=== PATIENT | male | born 1965 | race Caucasian/White ===

== ENCOUNTER 2016-05-18 11:16 | Emergency (ER) | payer SELFPAY ==
--- NOTE | 2016-05-18 11:35 | ER Document Report ---
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 IN LAST 30 DAYS: No - Related Data Allergies/Adverse Reactions: Penicillins Allergy (Intermediate, Verified 01/05/16 08:20) Hives ketorolac tromethamine [From Toradol] Adverse Reaction (Intermediate, Verified 01/05/16 08:20) headache Past Medical History - Past Medical History Cardiac Medical History: Reports: Hx Hypertension Pulmonary Medical History: Reports: Hx COPD Musculoskeltal Medical History: Reports Hx Arthritis, Reports Hx Musculoskeletal Deformity, Reports Hx Musculoskeletal Trauma Traumatic Medical History: Reports: Hx Fractures, Hx Traumatic Brain Injury Past Surgical History: Reports: Hx Abdominal Surgery - pyloric stenosis, Hx Neurologic Surgery - brain injury surgery, Hx Orthopedic Surgery - rt wrist tendon repair - Immunizations Immunizations up to date: Yes Hx Diphtheria, Pertussis, Tetanus Vaccination: Yes
[2016-05-18] MEDS ORDERED: IPRATROPIUM BROMIDE 0.02% NEB 0.5 MG/2.5 ML AMPUL NEB PRN (11:36)
[2016-05-18] MEDS ORDERED: NORMAL SALINE 1000 ML 1,000 ML IV PRN (12:05)
[2016-05-18] MEDS ORDERED: METHYLPREDNISOLONE INJ 125 MG/2 ML SDV IV ONE (12:05)
[2016-05-18] MEDS ORDERED: MORPHINE SULFATE 10 MG/ML INJ IV PRN ×2 (12:06→17:09)
[2016-05-18] MEDS ORDERED: MORPHINE SULFATE 10 MG/ML INJ IV ONE (12:06)
--- NOTE | 2016-05-18 12:09 | ER Document Report ---
ED Respiratory Problem - General Chief Complaint: Breathing Difficulty Stated Complaint: DIFFICULTY BREATHING Time seen by provider: 12:08 Mode of Arrival: Ambulatory Information source: Patient Notes: This is a 51-year-old man with a history of smoking who [place] and he started developing some significant shortness of breath, coughing fits, difficulty breathing. Allergies: Toradol, penicillin Medicines: None cigarettes: One pack per day TRAVEL OUTSIDE OF THE [place] IN LAST 30 DAYS: No - HPI Patient complains to provider of: Asthma Onset: Just prior to arrival Duration: Worse/persistent Initiating Event: Exposure to mold Quality of pain: Dull Severity: Moderate Pain Level: 4 Short of Breath: Moderate Chest pain/discomfort: Center, Constant Cough: Nonproductive Sputum amount: None Sputum consistency: denies: Frothy, Mucoid, Mucoid Plug, Tenacious, Thick, Thin At home treatment: denies: Bronchodilators, CPAP, Diuretics, Inhaled steroids, Oral steroids, Oxygen, Singulair, Theophylline EMS treatments: No: Bronchodilators, CPAP, Diuretics, Epinephrine, Nitrates, Oxygen, Solumedrol Associated symptoms: denies: None, Ankle/leg swelling, Allergy/hay fever, Anxiety, Bloody cough, Chest pain/discomfort, Chills, Congestion, Cough, Dental decay, Difficulty breathing, Earache, Extertional dyspnea, Facial pain, Fever, Headache, Heart racing, Hoarseness, Hurts to breathe, Hyperventilation, Jaw pain , Leg/calf/joint pain, Muscle spasms, Orthopnea, PND, Runny nose, Sinus pain/ pressure, Short of breath, Sore Throat, Sweaty, Tingling face, Tingling hands, Unable to swallow, Toothache, Wheezing, Other Similar symptoms previously: Yes Recently seen / treated by doctor: No - Related Data Allergies/Adverse Reactions: Penicillins Allergy (Intermediate, Verified 05/18/16 11:34) Hives ketorolac tromethamine [From Toradol] Adverse Reaction (Intermediate, Verified 05/18/16 11:34) headache Past Medical History - General Information source: Patient - Social History Smoking Status: Current Every Day Smoker Cigarette use (# per day): Yes - 1-1/2 packs per day Chew tobacco use (# tins/day): No Smoking Education Provided: Yes - 3 minutes Frequency of alcohol use: Social Drug Abuse: None Lives with: Family Family History: Arthritis, CAD, CVA, DM, Hyperlipidemia, Hypertension, Malignancy Patient has suicidal ideation: No Patient has homicidal ideation: No - Past Medical History Cardiac Medical History: Reports: Hx Hypertension Pulmonary Medical History: Reports: Hx COPD Renal/ Medical History: Denies: Hx Peritoneal Dialysis Musculoskeltal Medical History: Reports Hx Arthritis, Reports Hx Musculoskeletal Deformity, Reports Hx Musculoskeletal Trauma Traumatic Medical History: Reports: Hx Fractures, Hx Traumatic Brain Injury Past Surgical History: Reports: Hx Abdominal Surgery - pyloric stenosis, Hx Neurologic Surgery - brain injury surgery, Hx Orthopedic Surgery - rt wrist tendon repair - Immunizations Immunizations up to date: Yes Hx Diphtheria, Pertussis, Tetanus Vaccination: Yes Review of Systems - Review of Systems Constitutional: See HPI EENT: No symptoms reported Cardiovascular: No symptoms reported Respiratory: See HPI Gastrointestinal: No symptoms reported Genitourinary: No symptoms reported Male Genitourinary: No symptoms reported Musculoskeletal: See HPI Skin: No symptoms reported Hematologic/Lymphatic: No symptoms reported Neurological/Psychological: No symptoms reported Physical Exam - Vital signs Vitals: Temp Pulse Resp BP Pulse Ox 98.2 F 107 H 20 139/95 H 98 05/18/16 11:34 05/18/16 11:34 05/18/16 11:34 05/18/16 11:34 05/18/16 11:34 Notes: Physical exam: GENERAL: 51-year-old man, alert and oriented 3, moderate respiratory distress HEAD: Atraumatic, normocephalic. EYES: Pupils equal round and reactive to light, extraocular movements intact, sclera anicteric, conjunctiva are normal. ENT: TMs normal, nares patent, oropharynx clear without exudates. Moist mucous membranes. NECK: Normal range of motion, supple without lymphadenopathy or JVD. LUNGS: Diffuse wheezing bilaterally HEART: Regular rate and rhythm without murmurs, rubs or gallops. ABDOMEN: Soft, nontender, normoactive bowel sounds. No guarding, no rebound. No masses appreciated. EXTREMITIES: Normal range of motion, no pitting or edema. No clubbing or cyanosis. NEUROLOGICAL: Cranial nerves II through XII grossly intact. Normal speech, normal gait. PSYCH: Normal mood, normal affect. SKIN: Warm, Dry, normal turgor, no rashes or lesions noted. Course - Vital Signs Vital signs: Temp Pulse Resp BP Pulse Ox 98.2 F 107 H 20 139/95 H 98 05/18/16 11:34 05/18/16 11:34 05/18/16 11:34 05/18/16 11:34 05/18/16 11:34 - Laboratory Result Diagrams: 05/18/16 12:04 05/18/16 15:15 Laboratory results interpreted by me: 05/18/16 05/18/16 12:04 15:15 Monocytes % 19.6 H Absolute Monocytes 1.6 H Glucose 143 H - Diagnostic Test Radiology reviewed: Image reviewed, Reports reviewed - Chest x-ray shows no infiltrates or effusions. - EKG Interpretation by Me Rate: Normal Rhythm: NSR - EKG shows normal sinus rhythm with a ventricular rate of 96, no acute ST-T wave changes Discharge - Discharge Clinical Impression: acute reactive airway disease Condition: Stable Disposition: HOME, SELF-CARE Instructions: Bronchospasm ([facility]) Additional Instructions: Recommendations: Avoid the mold is much as possible. Take the steroids as prescribed: You don't need to next Dose until tomorrow. Take the inhaler as needed: 2 puffs every 4-6 hours Take the pain medicine as needed: See the narcotic instruction sheet. Follow-up at the [facility] Return to the emergency room for worsening shortness of breath or any concerns or getting worse. Prescriptions: Hydrocodone/Acetaminophen [[place] 5-325 mg Tablet] 1 tab PO Q6HP PRN #25 tablet PRN Reason: Albuterol Sulfate [Proair HFA Inhalation Aerosol 8.5 gm MDI] 2 puff IH Q4H PRN # 1 mdi PRN Reason: Prednisone [Deltasone 20 mg Tablet] 3 tab PO DAILY 5 Days Referrals: [facility] [Provider Group] - Follow up as needed
--- NOTE | 2016-05-18 12:11 | EKG REPORT ---
SEVERITY:- ABNORMAL ECG - SINUS RHYTHM BIATRIAL ABNORMALITIES : Confirmed by: Jaswinder Hernandez MD 18-May-2016 12:11:19
[2016-05-18] MEDS ORDERED: IPRATROPIUM/ALBUTEROL 0.5-2.5 MG/3 ML AMPUL NEB ONE ×3 (12:36→17:10)
[2016-05-18] MEDS: MAGNESIUM SULFATE/D5W 100 ML IV SCH ×2 (12:41→13:45)
[2016-05-18 12:49] LABS: ABSOLUTE BASOPHILS # (AUTO) 0.1 10^3/uL (0.0-0.2); ABSOLUTE EOSINOPHILS # (AUTO) 0.1 10^3/uL (0.0-0.6); ABSOLUTE LYMPHOCYTES (AUTO) 1.4 10^3/uL (0.5-4.7); ABSOLUTE MONOCYTES (AUTO) 1.6 10^3/uL (0.1-1.4); ABSOLUTE NEUT (AUTO) 5.1 10^3/uL (1.7-8.2); BASOPHILS % (AUTO) 0.8 % (0-2); EOSINOPHILS % (AUTO) 0.7 % (0-6); HEMATOCRIT 42.3 % (37.9-51.0); HEMOGLOBIN 13.9 g/dL (13.5-17.0); HGB HCT DIFFERENCE -0.6; MEAN CORPUSCULAR HEMOGLOBIN 29.2 pg (27.0-33.4); MEAN CORPUSCULAR HGB CONC 32.8 g/dL (32.0-36.0); MEAN CORPUSCULAR VOLUME 89 fl (80-97); MONOCYTES % (AUTO) 19.6 % (3-13); RED BLOOD COUNT 4.74 10^6/uL (4.35-5.55); RED CELL DISTRIBUTION WIDTH 13.1 % (11.5-14.0); SEGMENTED NEUTROPHILS % (AUTO) 61.9 % (42-78); WHITE BLOOD COUNT 8.3 10^3/uL (4.0-10.5)
[2016-05-18] MEDS ORDERED: LIDOCAINE 1% INJ-PF (10 MG/ML) 30 ML SDV NEB ONE (13:19)
[2016-05-18] MEDS ORDERED: ACETAMINOPHEN 325 MG TABLET PO ONE (13:21)
[2016-05-18 15:46] LABS: ALANINE AMINOTRANSFERASE 50 U/L (21-72); ALBUMIN 4.1 g/dL (3.5-5.0); ALKALINE PHOSPHATASE 67 U/L (38-126); ANION GAP 9 (5-19); ASPARTATE AMINO TRANSFERASE 35 U/L (17-59); BILIRUBIN,TOTAL 0.3 mg/dL (0.2-1.3); BLOOD UREA NITROGEN 18 mg/dL (7-20); CALCIUM 8.5 mg/dL (8.4-10.2); CARBON DIOXIDE 24 mmol/L (22-30); CHLORIDE 107 mmol/L (98-107); CREATININE RESULT 0.84 mg/dL (0.52-1.25); GLUCOSE 143 mg/dL (75-110); POTASSIUM 4.4 mmol/L (3.6-5.0); SODIUM 139.7 mmol/L (137-145); TOTAL PROTEIN 7.2 g/dL (6.3-8.2)
[2016-05-18] MEDS ORDERED: ALBUTEROL SULFATE HFA (90 MCG/PUFF) 8 GM MDI (1 MDI/ER DISP) IH PRN (17:40)
[2016-05-18] MEDS ORDERED: HYDROCODONE/ACETAMINOPHEN 5-325 MG 6 TAB/DSPK PO PRN (17:40)
[2016-05-18 18:02] VITALS: BP 178/98
== END 2016-05-18 17:57 | disposition home or self-care (01) ==
LOC: ER 11:16
DX: J45.909 Unspecified asthma, uncomplicated (principal); J44.9 Chronic obstructive pulmonary disease, unspecified; I10 Essential (primary) hypertension; R05 Cough; F17.210 Nicotine dependence, cigarettes, uncomplicated; Z77.120 Contact with and (suspected) exposure to mold (toxic); Z88.0 Allergy status to penicillin
CPT/HCPCS: 93005; 96376; 94640 ×2; 99285; 96375; 96365; 36415; 85025; 80053; 71010; 93010; J3490 ×3; J2930; J2270; J3475; J7030; J7620

== ENCOUNTER 2016-05-20 05:00 | Emergency (ER) | payer SELFPAY ==
[2016-05-20] MEDS ORDERED: IPRATROPIUM/ALBUTEROL 0.5-2.5 MG/3 ML AMPUL NEB ONE (05:30)
[2016-05-20] MEDS: ALBUTEROL SULFATE 0.083% NEB 2.5 MG/3 ML AMPUL NEB SCH ×2 (06:15→06:25)
[2016-05-20] MEDS ORDERED: ALBUTEROL SULFATE 0.083% NEB 2.5 MG/3 ML AMPUL NEB ONE (06:45)
[2016-05-20] MEDS ORDERED: MAGNESIUM SULFATE/D5W 100 ML IV ONE (06:45)
[2016-05-20] MEDS ORDERED: ACETAMINOPHEN WITH CODEINE #3 TABLET PO ONE (06:46)
[2016-05-20] MEDS ORDERED: DOXYCYCLINE HYCLATE INJ 100 MG VIAL IV ONE (06:47)
[2016-05-20 07:22] LABS: VENOUS BLOOD BASE EXCESS 3.7 mmol/L; VENOUS BLOOD HCO3 29.3 mmol/L (20-32); VENOUS BLOOD PCO2 48.3 mmHg (35-63); VENOUS BLOOD PH 7.4 (7.30-7.42)
[2016-05-20 07:25] LABS: ABSOLUTE EOSINOPHILS # (AUTO) 0.1 10^3/uL (0.0-0.6); ABSOLUTE LYMPHOCYTES (AUTO) 2.4 10^3/uL (0.5-4.7); ABSOLUTE NEUT (AUTO) 3.1 10^3/uL (1.7-8.2); BASOPHILS % (AUTO) 0.8 % (0-2); EOSINOPHILS % (AUTO) 1.3 % (0-6); HEMATOCRIT 39.3 % (37.9-51.0); HEMOGLOBIN 12.9 g/dL (13.5-17.0); HGB HCT DIFFERENCE -0.6; LYMPHOCYTES % (AUTO) 36.2 % (13-45); MEAN CORPUSCULAR HEMOGLOBIN 29.6 pg (27.0-33.4); MEAN CORPUSCULAR HGB CONC 32.7 g/dL (32.0-36.0); MEAN CORPUSCULAR VOLUME 91 fl (80-97); MONOCYTES % (AUTO) 14.4 % (3-13); RED BLOOD COUNT 4.34 10^6/uL (4.35-5.55); RED CELL DISTRIBUTION WIDTH 13.6 % (11.5-14.0); SEGMENTED NEUTROPHILS % (AUTO) 47.3 % (42-78); WHITE BLOOD COUNT 6.6 10^3/uL (4.0-10.5)
--- NOTE | 2016-05-20 07:32 | ER Document Report ---
ED General - General Chief Complaint: Breathing Difficulty Stated Complaint: DIFFICULTY BREATHING TRAVEL OUTSIDE OF THE [place] IN LAST 30 DAYS: No - HPI Patient complains to provider of: shortness of breath productive cough Notes: Patient coming in for evaluation of shortness of breath productive cough. Patient states 2 days ago has been exposed to black mold has difficulty in breathing came into the ER for evaluation was diagnosed with reactive airway disease. Patient was treated with bronchodilators steroids patient is a smoker states that he continue to smoke after being discharged home coming back today because of difficulty breathing output sputum coughing up yellow with diffuse body aches. Patient states his abdomen back chest wall are hurting her time the patient calls. Patient states is like his shortness of breath is getting worse. Denies fevers chills denies recent travel - Related Data Allergies/Adverse Reactions: Penicillins Allergy (Intermediate, Verified 05/18/16 11:34) Hives ketorolac tromethamine [From Toradol] Adverse Reaction (Intermediate, Verified 05/18/16 11:34) headache Past Medical History - Social History Smoking Status: Current Every Day Smoker Frequency of alcohol use: Occasional Drug Abuse: None Family History: Arthritis, CAD, CVA, DM, Hyperlipidemia, Hypertension, Malignancy Patient has suicidal ideation: No Patient has homicidal ideation: No - Past Medical History Cardiac Medical History: Reports: Hx Hypertension Pulmonary Medical History: Reports: Hx COPD Renal/ Medical History: Denies: Hx Peritoneal Dialysis Musculoskeltal Medical History: Reports Hx Arthritis, Reports Hx Musculoskeletal Deformity, Reports Hx Musculoskeletal Trauma Traumatic Medical History: Reports: Hx Fractures, Hx Traumatic Brain Injury Past Surgical History: Reports: Hx Abdominal Surgery - pyloric stenosis, Hx Neurologic Surgery - brain injury surgery, Hx Orthopedic Surgery - rt wrist tendon repair - Immunizations Immunizations up to date: Yes Hx Diphtheria, Pertussis, Tetanus Vaccination: Yes Review of Systems - Review of Systems Constitutional: No symptoms reported EENT: No symptoms reported Cardiovascular: No symptoms reported Respiratory: No symptoms reported Gastrointestinal: No symptoms reported Genitourinary: No symptoms reported Male Genitourinary: No symptoms reported Musculoskeletal: No symptoms reported Skin: No symptoms reported Hematologic/Lymphatic: No symptoms reported Neurological/Psychological: No symptoms reported -: Yes All other systems reviewed and negative Physical Exam - Vital signs Vitals: Temp Pulse Resp BP 98.1 F 92 22 H 185/135 H 05/20/16 05:12 05/20/16 05:12 05/20/16 05:12 05/20/16 05:12 Interpretation: Hypertensive, Tachypneic - General General appearance: Appears well, Alert - HEENT Head: Normocephalic, Atraumatic Eyes: Normal Pupils: PERRL - Respiratory Respiratory status: No respiratory distress, Tachypnea Breath sounds: Rhonchi, Wheezing Chest palpation: Normal - Cardiovascular Rhythm: Regular Heart sounds: Normal auscultation Murmur: No - Abdominal Inspection: Normal Distension: No distension Bowel sounds: Normal Tenderness: Nontender Organomegaly: No organomegaly - Back Back: Normal, Nontender - Extremities General upper extremity: Normal inspection, Nontender, Normal color, Normal ROM , Normal temperature General lower extremity: Normal inspection, Nontender, Normal color, Normal ROM , Normal temperature, Normal weight bearing. No: Jeff's sign - Neurological Neuro grossly intact: Yes Cognition: Normal Orientation: AAOx4 [place] Coma Scale Eye Opening: Spontaneous [place] Coma Scale Verbal: Oriented [place] Coma Scale Motor: Obeys Commands [place] Coma Scale Total: 15 Speech: Normal Motor strength normal: LUE, RUE, LLE, RLE Sensory: Normal - Psychological Associated symptoms: Normal affect, Normal mood - Skin Skin Temperature: Warm Skin Moisture: Dry Skin Color: Normal Course - Re-evaluation Re-evalutation: 05/20/16 07:32 05/20/16 08:54 Patient with coarse lung sounds upon evaluation. Patient's vital signs improved after treatment here in ER. Patient was again encouraged to stop smoking during this treatment course. Patient's lung sounds improved during treatment course here in ER. Patient continues to ask for pain control. Explained to the patient that high doses of narcotics at this time would not be advantageous to his care is that his myalgias are due from coughing however high dose oral narcotics will decrease his respiratory drive and set him up for pneumonia I will prescribe the patient Tylenol threes to aid with cough and will give pain control patient was also encouraged to take Tylenol Motrin. - Vital Signs Vital signs: Temp Pulse Resp BP Pulse Ox 98.1 F 92 16 155/81 H 96 05/20/16 05:12 05/20/16 05:12 05/20/16 08:38 05/20/16 08:38 05/20/16 08:38 - Laboratory Result Diagrams: 05/20/16 07:00 05/20/16 07:00 Laboratory results interpreted by me: 05/20/16 05/20/16 07:00 07:00 RBC 4.34 L Hgb 12.9 L Monocytes % 14.4 H BUN 22 H Discharge - Discharge Clinical Impression: Bronchitis, Tobacco use, Myalgia Condition: Good Disposition: HOME, SELF-CARE Instructions: Bronchitis With Bronchospasm (Wheezing) ([facility]), Myalagia (Muscle Pain) ([facility]) Additional Instructions: Please continue to use the inhaler given to you last visit 2 puffs every 4 hours for the next 5 days. Please take antibiotics as prescribed. Please take Tylenol 3 as prescribed. Return to ER symptoms worsen. I will extend your steroid medication please have my steroid prescription filled. Prescriptions: Acetaminophen with Codeine [Tylenol #3 Tablet] 1 - 2 each PO Q4HP PRN #30 tablet PRN Reason: Doxycycline Hyclate 100 mg PO BID #20 capsule Prednisone [Deltasone 20 mg Tablet] 3 tab PO ASDIR #18 tablet Forms: Return to Work, Smoking Cessation Education, Elevated Blood Pressure
[2016-05-20 07:44] LABS: ALANINE AMINOTRANSFERASE 44 U/L (21-72); ALBUMIN 3.6 g/dL (3.5-5.0); ALKALINE PHOSPHATASE 56 U/L (38-126); ANION GAP 9 (5-19); ASPARTATE AMINO TRANSFERASE 30 U/L (17-59); BILIRUBIN,TOTAL 0.3 mg/dL (0.2-1.3); BLOOD UREA NITROGEN 22 mg/dL (7-20); CALCIUM 8.7 mg/dL (8.4-10.2); CARBON DIOXIDE 29 mmol/L (22-30); CHLORIDE 103 mmol/L (98-107); CREATININE RESULT 0.86 mg/dL (0.52-1.25); GLUCOSE 102 mg/dL (75-110); LIPASE 28.4 U/L (23-300); MAGNESIUM 1.9 mg/dL (1.6-2.3); POTASSIUM 4.2 mmol/L (3.6-5.0); SODIUM 141.1 mmol/L (137-145); TOTAL PROTEIN 6.8 g/dL (6.3-8.2)
--- NOTE | 2016-05-20 08:15 | EKG REPORT ---
SEVERITY:- BORDERLINE ECG - SINUS RHYTHM PROBABLE LEFT ATRIAL ABNORMALITY CONSIDER OLD ANTERIOR OK : Confirmed by: Jaswinder Hernandez MD 20-May-2016 08:14:45
[2016-05-20 09:05] VITALS: BP 148/92
== END 2016-05-20 09:27 | disposition home or self-care (01) ==
LOC: ER 05:00
DX: J44.9 Chronic obstructive pulmonary disease, unspecified (principal); J45.909 Unspecified asthma, uncomplicated; R06.02 Shortness of breath; R05 Cough; M79.1 Myalgia; R10.9 Unspecified abdominal pain; M54.9 Dorsalgia, unspecified; R07.89 Other chest pain; I10 Essential (primary) hypertension; F17.200 Nicotine dependence, unspecified, uncomplicated; Z88.0 Allergy status to penicillin; Z82.49 Family history of ischemic heart disease and other diseases of the circulatory system
CPT/HCPCS: 93005; 94640 ×2; 99285; 96365; 96368; 36415; 83690; 83735; 85025; 80053; 84484; 82803; 71010; 93010; J3490; J3475; J7620

== ENCOUNTER 2016-06-25 11:14 | Emergency (ER) | payer SELFPAY ==
--- NOTE | 2016-06-25 12:03 | ER Document Report ---
ED Medical Screen (RME) - General Chief Complaint: Leg Pain Stated Complaint: LOWER BODY PAIN Mode of Arrival: Ambulatory Information source: Patient Notes: 51 y/o M presents to ED c/o left upper leg pain. Reports fell 2 days ago and has abrasion to left lateral thigh that is causing him worsening pain and numbness. Denies fever or incontinence. I have greeted and performed a rapid initial assessment of this patient. A comprehensive ED assessment and evaluation of the patient, analysis of test results and completion of the medical decision making process will be conducted by additional ED providers. TRAVEL OUTSIDE OF THE [place] IN LAST 30 DAYS: No - Related Data Allergies/Adverse Reactions: Penicillins Allergy (Intermediate, Verified 06/25/16 11:56) Hives ketorolac tromethamine [From Toradol] Adverse Reaction (Intermediate, Verified 06/25/16 11:56) headache Past Medical History - Past Medical History Cardiac Medical History: Reports: Hx Hypertension Pulmonary Medical History: Reports: Hx COPD Renal/ Medical History: Denies: Hx Peritoneal Dialysis Musculoskeltal Medical History: Reports Hx Arthritis, Reports Hx Musculoskeletal Deformity, Reports Hx Musculoskeletal Trauma Traumatic Medical History: Reports: Hx Fractures, Hx Traumatic Brain Injury Past Surgical History: Reports: Hx Abdominal Surgery - pyloric stenosis, Hx Neurologic Surgery - brain injury surgery, Hx Orthopedic Surgery - rt wrist tendon repair - Immunizations Immunizations up to date: Yes Hx Diphtheria, Pertussis, Tetanus Vaccination: Yes Physical Exam - Vital signs Vitals: Temp Pulse Resp BP Pulse Ox 99.3 F 96 20 160/108 H 96 06/25/16 11:32 06/25/16 11:32 06/25/16 11:32 06/25/16 11:32 06/25/16 11:32 - General General appearance: Appears well, Alert In distress: None - Respiratory Respiratory status: No respiratory distress Course - Vital Signs Vital signs: Temp Pulse Resp BP Pulse Ox 99.3 F 96 20 160/108 H 96 06/25/16 11:32 06/25/16 11:32 06/25/16 11:32 06/25/16 11:32 06/25/16 11:32
--- NOTE | 2016-06-25 13:09 | ER Document Report ---
ED Extremity Problem, Lower - General Mode of Arrival: Ambulatory Information source: Patient TRAVEL OUTSIDE OF THE [place] IN LAST 30 DAYS: No - HPI Patient complains to provider of: Altered sensation, Injury, Pain Location: Knee - left leg Quality of pain: Achy Severity: None Context: Direct blow, Fell Recent injury: Yes - General Chief Complaint: Leg Pain Stated Complaint: LOWER BODY PAIN Notes: Patient is a 51-year-old male that presents to the emergency department today with complaints of left leg pain and numbness. Patient states that he tripped over a piece of wood and landed on that piece of wood a few days ago. Patient states he was intoxicated when this occurred. Patient states this morning when he woke up he noticed numbness to his left leg and testicles. Patient states he got a tetanus shot two years ago. Patient denies any penile pain, incontinence, or radiating pain down his leg. (JAKUB DUFFY) - Related Data Allergies/Adverse Reactions: Penicillins Allergy (Intermediate, Verified 06/25/16 11:56) Hives ketorolac tromethamine [From Toradol] Adverse Reaction (Intermediate, Verified 06/25/16 11:56) headache Past Medical History - General Information source: Patient - Social History Smoking Status: Never Smoker Cigarette use (# per day): No Chew tobacco use (# tins/day): No Frequency of alcohol use: None Drug Abuse: None Lives with: Family Family History: Reviewed & Not Pertinent, Arthritis, CAD, CVA, DM, Hyperlipidemia, Hypertension, Malignancy Patient has suicidal ideation: No Patient has homicidal ideation: No - Past Medical History Cardiac Medical History: Reports: Hx Hypertension Pulmonary Medical History: Reports: Hx COPD Musculoskeltal Medical History: Reports Hx Arthritis, Reports Hx Musculoskeletal Deformity, Reports Hx Musculoskeletal Trauma Traumatic Medical History: Reports: Hx Fractures, Hx Traumatic Brain Injury Past Surgical History: Reports: Hx Abdominal Surgery - pyloric stenosis, Hx Neurologic Surgery - brain injury surgery, Hx Orthopedic Surgery - rt wrist tendon repair - Immunizations Immunizations up to date: Yes Hx Diphtheria, Pertussis, Tetanus Vaccination: Yes Review of Systems - Review of Systems Constitutional: No symptoms reported EENT: No symptoms reported Cardiovascular: No symptoms reported Respiratory: No symptoms reported Gastrointestinal: No symptoms reported Genitourinary: No symptoms reported Male Genitourinary: No symptoms reported Musculoskeletal: See HPI, Other - left leg pain Skin: No symptoms reported Hematologic/Lymphatic: No symptoms reported Neurological/Psychological: See HPI, Other - numbness to left leg and testicles -: Yes All other systems reviewed and negative Physical Exam - Vital signs Interpretation: Normal - General General appearance: Appears well, Alert In distress: None - HEENT Head: Normocephalic, Atraumatic Eyes: Normal Conjunctiva: Normal - Respiratory Respiratory status: No respiratory distress - Cardiovascular Rhythm: Regular - Abdominal Inspection: Normal Distension: No distension - Genitourinary Inspection: Normal Tenderness: Nontender Cremasteric reflex: Normal Scrotum: Normal - Back Back: Other - Left SI joint tenderness with palpation, no mid-line tenderness - Extremities General upper extremity: Normal inspection, Normal ROM. No: Edema - Neurological Neuro grossly intact: Yes Cognition: Normal Orientation: AAOx4 Speech: Normal - Psychological Associated symptoms: Normal affect, Normal mood - Skin Skin Temperature: Warm Skin Moisture: Dry Skin Color: Normal Course - Re-evaluation Re-evalutation: 06/25/16 Patient with tenderness to palpation over her sacroiliac joint. Patient with no motor or sensory deficits. Is suspect that he is continues his lateral cutaneous nerve. Patient has full sensation at this time. Patient has abrasion and contusion over his left lateral thigh no evidence for infection. Patient is up-to-date on his tetanus shot. Patient will be discharged home with medication and is to return immediately if he has any concerning or worsening symptoms. Stable for discharge. Understands agrees with plan. ( SHAWNEE ZAZUETA) - Vital Signs Vital signs: Temp Pulse Resp BP Pulse Ox 98.0 F 85 18 155/90 H 100 06/25/16 13:46 06/25/16 13:46 06/25/16 13:46 06/25/16 13:46 06/25/16 13:46 (JAKUB DUFFY) (SHAWNEE ZAZUETA) Discharge - Discharge Clinical Impression: Abrasion, leg w/o infection Sacroiliac (ligament) sprain Qualifiers: Encounter type: initial encounter Qualified Code(s): S33.6XXA - Sprain of sacroiliac joint, initial encounter Contusion Qualifiers: Encounter type: initial encounter Contusion area: thigh Laterality: left Qualified Code(s): S70.12XA - Contusion of left thigh, initial encounter Condition: Stable Disposition: HOME, SELF-CARE Instructions: Sprain ([facility]), Contusion ([facility]), Abrasions ([facility]) Prescriptions: Carisoprodol [[place]] 350 mg PO DAILYP PRN #14 tablet PRN Reason: Oxycodone HCl/Acetaminophen [Percocet 5-325 mg Tablet] 1 - 2 tab PO Q4H PRN #15 tablet PRN Reason: Forms: Return to Work Scribe Attestation: 06/25/16 18:54 I personally performed the services described in the documentation, reviewed and edited the documentation which was dictated to the scribe in my presence, and it accurately records my words and actions. (SHAWNEE ZAZUETA) Scribe Documentation - Scribe Written by Benito:: Benito Lee, 06/25/16 1205 acting as scribe for :: Tanja
[2016-06-25] MEDS ORDERED: OXYCODONE-ACETAMINOPHEN 5-325 MG TABLET PO ONE (13:31)
[2016-06-25 13:48] VITALS: BP 155/90
== END 2016-06-25 13:47 | disposition home or self-care (01) ==
LOC: ER 11:14
DX: S33.6XXA Sprain of sacroiliac joint, initial encounter (principal); S70.12XA Contusion of left thigh, initial encounter; W01.198A Fall on same level from slipping, tripping and stumbling with subsequent striking against other object, initial encounter; R20.0 Anesthesia of skin; M25.562 Pain in left knee; I10 Essential (primary) hypertension; J44.9 Chronic obstructive pulmonary disease, unspecified; Z88.0 Allergy status to penicillin
CPT/HCPCS: 99283

== ENCOUNTER 2016-08-22 08:02 | Emergency (ER) | payer SELFPAY ==
[2016-08-22] MEDS ORDERED: PROMETHAZINE HCL 25 MG TABLET PO ONE (09:21)
[2016-08-22] MEDS ORDERED: OXYCODONE-ACETAMINOPHEN 5-325 MG TABLET PO ONE (09:21)
--- NOTE | 2016-08-22 09:26 | ER Document Report ---
ED Medical Screen (RME) - General Chief Complaint: Groin Pain Stated Complaint: GROIN PAIN Notes: Patient is complaining of pain in the right groin and in his right buttock/hip region. He says that he was working on a 12 foot ladder 2 days ago and fell and landed on his feet on the ground. He had immediate pain in his right buttock region. He also had pain in the right groin area. Last night, he developed "extreme pain" in the right groin. Patient says he's previously been told he had a hernia in that same location. Has not had any surgeries. PMH: Hypertension, supposed to be on medications, but not taking any. I examined the patient's right inguinal area, and there was a small protrusion of likely bowel that felt like a small hernia. I applied firm pressure to that area and was able to feel some apparent reduction in the size and contents of that area of the groin. I feel that I have reduced a hernia, but not sure if it 's entirely reduced. Patient says it does feel better to him after I did that procedure. TRAVEL OUTSIDE OF THE [place] IN LAST 30 DAYS: No - Related Data Allergies/Adverse Reactions: Penicillins Allergy (Intermediate, Verified 08/22/16 08:07) Hives ketorolac tromethamine [From Toradol] Adverse Reaction (Intermediate, Verified 08/22/16 08:07) headache Past Medical History - Past Medical History Cardiac Medical History: Reports: Hx Hypertension Pulmonary Medical History: Reports: Hx COPD Renal/ Medical History: Denies: Hx Peritoneal Dialysis Musculoskeltal Medical History: Reports Hx Arthritis, Reports Hx Musculoskeletal Deformity, Reports Hx Musculoskeletal Trauma Traumatic Medical History: Reports: Hx Fractures, Hx Traumatic Brain Injury Past Surgical History: Reports: Hx Abdominal Surgery - pyloric stenosis, Hx Neurologic Surgery - brain injury surgery, Hx Orthopedic Surgery - rt wrist tendon repair - Immunizations Immunizations up to date: Yes Hx Diphtheria, Pertussis, Tetanus Vaccination: Yes Physical Exam - Vital signs Vitals: Temp Pulse Resp BP Pulse Ox 98.5 F 80 20 198/103 H 97 08/22/16 08:09 08/22/16 08:09 08/22/16 08:09 08/22/16 08:09 08/22/16 08:09 Course - Vital Signs Vital signs: Temp Pulse Resp BP Pulse Ox 98.5 F 80 20 198/103 H 97 08/22/16 08:09 08/22/16 08:09 08/22/16 08:09 08/22/16 08:09 08/22/16 08:09
--- NOTE | 2016-08-22 10:14 | ER Document Report ---
ED General - General Mode of Arrival: Ambulatory Information source: Patient TRAVEL OUTSIDE OF THE [place] IN LAST 30 DAYS: No - HPI Patient complains to provider of: Right Hip Pain Onset: Yesterday Onset/Duration: Gradual Quality of pain: Stabbing Associated symptoms: None Exacerbated by: Walking <OLIVER LOUISE - Last Filed: 08/22/16 10:21> <CARLTONRACHEL Villegas - Last Filed: 08/22/16 12:01> - General Chief Complaint: Groin Pain Stated Complaint: GROIN PAIN Notes: Patient is a 51-year-old male presenting to the emergency department concerned of right hip and groin pain onset last night. Patient states that 2 days ago He jumped down off of a 14 foot ladder because he felt like he was about to fall. Patient states he landed on his feet, but [place] his right hip. Patient has a history of sciatica and an inguinal hernia, and he thinks that this may have irritated those past issues. Patient also states that he has a history of hypertension, but is noncompliant with his medications. (OLIVER LOUISE) - Related Data Allergies/Adverse Reactions: Penicillins Allergy (Intermediate, Verified 08/22/16 08:07) Hives ketorolac tromethamine [From Toradol] Adverse Reaction (Intermediate, Verified 08/22/16 08:07) headache Past Medical History - General Information source: Patient - Social History Smoking Status: Current Every Day Smoker Frequency of alcohol use: Occasional Drug Abuse: None Family History: Reviewed & Not Pertinent, Arthritis, CAD, CVA, DM, Hyperlipidemia, Hypertension, Malignancy Patient has suicidal ideation: No Patient has homicidal ideation: No - Past Medical History Cardiac Medical History: Reports: Hx Hypertension - Non-compliant with meds Pulmonary Medical History: Reports: Hx COPD Musculoskeltal Medical History: Reports Hx Arthritis, Reports Hx Musculoskeletal Deformity, Reports Hx Musculoskeletal Trauma Traumatic Medical History: Reports: Hx Fractures, Hx Traumatic Brain Injury Past Surgical History: Reports: Hx Abdominal Surgery - pyloric stenosis, Hx Neurologic Surgery - brain injury surgery, Hx Orthopedic Surgery - rt wrist tendon repair - Immunizations Immunizations up to date: Yes Hx Diphtheria, Pertussis, Tetanus Vaccination: Yes <OLIVER LOUISE - Last Filed: 08/22/16 10:21> Review of Systems - Review of Systems Constitutional: No symptoms reported EENT: No symptoms reported Cardiovascular: No symptoms reported Respiratory: No symptoms reported Gastrointestinal: No symptoms reported Genitourinary: No symptoms reported Male Genitourinary: No symptoms reported Musculoskeletal: See HPI, Other - Right hip pain radiates into lateral thigh, Right groin pain Skin: No symptoms reported Hematologic/Lymphatic: No symptoms reported Neurological/Psychological: No symptoms reported -: Yes All other systems reviewed and negative <OLIVER LOUISE - Last Filed: 08/22/16 10:21> Physical Exam <OLIVER LOUISE - Last Filed: 08/22/16 10:21> - Vital signs Interpretation: Hypertensive <RACHEL VINCENT - Last Filed: 08/22/16 12:01> - Vital signs Vitals: Temp Pulse Resp BP Pulse Ox 98.5 F 80 20 198/103 H 97 08/22/16 08:09 08/22/16 08:09 08/22/16 08:09 08/22/16 08:09 08/22/16 08:09 - Notes Notes: GENERAL: VS as per nursing doc. Well-appearing, well-nourished and in no acute distress. HEAD: Atraumatic, normocephalic. EYES: Pupils equal round and reactive to light, extraocular movements intact, sclera anicteric, no conjunctival injection or discharge. No evidence of trauma. ENT: Nares patent without bleeding, oropharynx clear without exudates, moist mucous membranes. No evidence of facial trauma or facial instablitily. NECK: Normal range of motion without pain elicited. No deformity. LUNGS: Breath sounds very coarse bilaterally. No chest wall tenderness or deformity. HEART: Regular rate and rhythm without murmurs. Normal S1, S2. Peripheral pulses equal. ABDOMEN: Soft, non-tender. BACK: No CVA tenderness. No spine tenderness. No evidence of trauma. EXTREMITIES/MUSCULOSKELETAL: Normal range of motion without pain elicited. Neurovascularly intact distally. There is tenderness in the right inguinal region though it is lateral to the reducible inguinal hernia. There is significant tenderness over the right SI joint as well. Femur is nontender. Mild tenderness with pelvic compression but no instability. NEUROLOGICAL: GCS 15. Cranial nerves grossly intact. Normal speech. Normal sensory and motor exams. No gross cerebellar abnormalities. PSYCH: Normal mood, normal affect. SKIN: Warm, dry. No lacerations or abrasions noted. (CARLTON,RACHEL F) Course <ASPENMANIOLIVER - Last Filed: 08/22/16 10:21> - Diagnostic Test Radiology reviewed: Image reviewed, Reports reviewed - Pelvic x-ray ultrasound and CT showed a right inguinal hernia containing only fat. No evidence of traumatic injury. <RACHEL VINCENT - Last Filed: 08/22/16 12:01> - Re-evaluation Re-evalutation: 08/22/16 11:57 Patient's pain seemed out of proportion to findings. He seemed very comfortable just sitting there. He does have pain over the SI joints so a sprain would be considered as well an acetabular injury could be present. Due to this we will have him follow-up with orthopedics. (RACHEL VINCENT) - Vital Signs Vital signs: Temp Pulse Resp BP Pulse Ox 97.5 F 66 20 163/102 H 97 08/22/16 10:01 08/22/16 10:01 08/22/16 10:01 08/22/16 10:01 08/22/16 10:01 Discharge <OLIVER LOUISE - Last Filed: 08/22/16 10:21> <RACHEL VINCENT - Last Filed: 08/22/16 12:01> - Discharge Clinical Impression: Pelvic pain in male Condition: Good Disposition: HOME, SELF-CARE Additional Instructions: Start initially with ibuprofen or Aleve for discomfort. Use crutches to stay off if painful to walk on. Call Wednesday to arrange follow-up. You definitely need to follow-up and get your blood pressure under control. Prescriptions: Hydrocodone/Acetaminophen [[place] 10-325 mg Tablet] 1 tab PO Q6HP PRN #14 tablet PRN Reason: For Pain Forms: Elevated Blood Pressure, Smoking Cessation Education Referrals: JAMIE NICHOLSON DO [ACTIVE STAFF] - Follow up as needed Scribe Attestation: 08/22/16 12:01 I personally performed the services described in the documentation, reviewed and edited the documentation which was dictated to the scribe in my presence, and it accurately records my words and actions. (RACHEL VINCENT)
[2016-08-22] MEDS ORDERED: OXYCODONE HCL IR 5 MG TABLET PO ONE (10:16)
[2016-08-22] MEDS ORDERED: KETOROLAC TROMETHAMINE 60 MG/2 ML SDV IM ONE (10:17)
[2016-08-22] MEDS ORDERED: METHOCARBAMOL 750 MG TABLET PO ONE (11:52)
[2016-08-22 12:39] VITALS: BP 168/97
== END 2016-08-22 12:39 | disposition home or self-care (01) ==
LOC: ER 08:02
DX: R10.2 Pelvic and perineal pain (principal); R10.30 Lower abdominal pain, unspecified; M25.551 Pain in right hip; W19.XXXA Unspecified fall, initial encounter; M54.30 Sciatica, unspecified side; I10 Essential (primary) hypertension
CPT/HCPCS: 99284; 73502; 76857; 72192; J3490

== ENCOUNTER 2016-08-25 21:58 | Emergency (ER) | payer SELFPAY ==
[2016-08-25] MEDS ORDERED: ACETAMINOPHEN 325 MG TABLET PO ONE (23:38)
[2016-08-26] MEDS ORDERED: HYDROCODONE/ACETAMINOPHEN 5-325 MG TABLET PO ONE (01:56)
[2016-08-26] MEDS ORDERED: IBUPROFEN 600 MG TABLET PO ONE (01:56)
--- NOTE | 2016-08-26 01:57 | ER Document Report ---
ED GI/ - General Chief Complaint: Groin Pain Stated Complaint: GROIN PAIN Notes: The patient is a 51-year-old male, past medical history chronic back pain, sciatica, right inguinal hernia, presents with right groin pain for the past 3 days after he jumped off a 14 foot ladder. He was seen in the emergency room 2 days ago and had negative CAT scans and x-rays of his hip and back. He is having worsening pain when he bears down and it improves with ice packs and when he reduces his right hernia. He denies testicular pain, penile discharge, dysuria, nausea, vomiting, numbness, tingling, back pain, fevers, diarrhea or constipation. TRAVEL OUTSIDE OF THE [place] IN LAST 30 DAYS: No - Related Data Allergies/Adverse Reactions: Penicillins Allergy (Intermediate, Verified 08/22/16 08:07) Hives ketorolac tromethamine [From Toradol] Adverse Reaction (Intermediate, Verified 08/22/16 08:07) headache Past Medical History - General Information source: Patient - Social History Smoking Status: Current Every Day Smoker Family History: Reviewed & Not Pertinent, Arthritis, CAD, CVA, DM, Hyperlipidemia, Hypertension, Malignancy Patient has suicidal ideation: No Patient has homicidal ideation: No - Past Medical History Cardiac Medical History: Reports: Hx Hypertension - Non-compliant with meds Pulmonary Medical History: Reports: Hx COPD Renal/ Medical History: Denies: Hx Peritoneal Dialysis Musculoskeltal Medical History: Reports Hx Arthritis, Reports Hx Musculoskeletal Deformity, Reports Hx Musculoskeletal Trauma Traumatic Medical History: Reports: Hx Fractures, Hx Traumatic Brain Injury Past Surgical History: Reports: Hx Abdominal Surgery - pyloric stenosis, Hx Neurologic Surgery - brain injury surgery, Hx Orthopedic Surgery - rt wrist tendon repair - Immunizations Immunizations up to date: Yes Hx Diphtheria, Pertussis, Tetanus Vaccination: Yes Review of Systems - Review of Systems Notes: REVIEW OF SYSTEMS: CONSTITUTIONAL: -fevers, -chills EENT: -eye pain, -difficulty swallowing, -nasal congestion CARDIOVASCULAR:-chest pain, -syncope. RESPIRATORY: -cough, -SOB GASTROINTESTINAL: +right groin pain, -nausea, -vomiting, -diarrhea GENITOURINARY: -dysuria, -hematuria MUSCULOSKELETAL: -back pain, -neck pain SKIN: -rash or skin lesions. HEMATOLOGIC: -easy bruising or bleeding. LYMPHATIC: -swollen, enlarged glands. NEUROLOGICAL: -altered mental status or loss of consciousness, -headache, - neurologic symptoms PSYCHIATRIC: -anxiety, -depression. ALL OTHER SYSTEMS REVIEWED AND NEGATIVE. Physical Exam - Vital signs Vitals: Temp Pulse Resp BP Pulse Ox 98.3 F 88 20 141/88 H 96 08/25/16 22:18 08/25/16 22:18 08/25/16 22:18 08/25/16 22:18 08/25/16 22:18 - Notes Notes: PHYSICAL EXAMINATION: GENERAL: Well-appearing, well-nourished and in no acute distress. Starts becoming uncomfortable when I enter the room. HEAD: Atraumatic, normocephalic. EYES: Pupils equal round and reactive to light, extraocular movements intact, sclera anicteric, conjunctiva are normal. ENT: nares patent, oropharynx clear without exudates. Moist mucous membranes. NECK: Normal range of motion, supple without lymphadenopathy LUNGS: Breath sounds clear to auscultation bilaterally and equal. No wheezes rales or rhonchi. HEART: Regular rate and rhythm without murmurs ABDOMEN: Soft, nontender, normoactive bowel sounds. Right reducible inguinal hernia. No penile discharge or sores. No guarding, no rebound. EXTREMITIES: Normal range of motion, no pitting or edema. No cyanosis. NEUROLOGICAL: Cranial nerves grossly intact. Normal speech, normal gait. Normal sensory, motor, and reflex exams. PSYCH: Normal mood, normal affect. SKIN: Warm, Dry, normal turgor, no rashes or lesions noted. Course - Re-evaluation Re-evalutation: Patient with right reducible inguinal hernia that is causing his pain. Told him that he must follow-up with the surgeon. Given strict return precautions and he understands. - Vital Signs Vital signs: Temp Pulse Resp BP Pulse Ox 98.3 F 88 20 141/88 H 96 08/25/16 22:18 08/25/16 22:18 08/25/16 22:18 08/25/16 22:18 08/25/16 22:18 Discharge - Discharge Clinical Impression: Reducible right inguinal hernia Condition: Good Disposition: HOME, SELF-CARE Additional Instructions: Hernia You have a hernia. A hernia forms at a weak spot in the abdominal wall. Bowel slips out of the abdominal cavity into the weak spot. Hernias tend to occur in the groin (especially in males), the fold of the thigh, the naval, or at a surgical scar. Surgical repair of the defect is usually necessary. The problem tends to get worse. It's important that you follow up as recommended. For now, you should avoid straining, heavy lifting, and vigorous exercise. Complications occur if the hernia becomes tightly stuck. You should come back immediately if the area becomes increasingly painful, swollen, or discolored, or if you develop abdominal pain and vomiting. Inguinal Strain You have an inguinal strain, also known as a pulled groin. This injury causes pain where the lower abdominal wall meets the upper leg. The strain can affect several different muscles and tendons. When it occurs during running, the injury usually affects the tendon or upper muscle fibers of the thigh muscles. With weight lifting, it's the lower fibers of the abdominal wall muscles that are most often strained. Running, lifting, squatting, or even walking can cause pain. A strain can take a few weeks to heal. Apply ice packs during the first couple of days following the injury. Antiinflammatory pain medication can help. Avoid lifting, running, jumping, and other activities that provoke pain. No hernia was found. But sometimes a hernia can begin with the same symptoms as a strain of the groin. If you find a lump or bulge in the groin, pain or swelling in the testicle, abdominal cramping, or vomiting, you should return for re-examination. Prescriptions: Hydrocodone/Acetaminophen [[place] 5-325 mg Tablet] 1 tab PO Q6H PRN #9 tablet PRN Reason: Referrals: EMI RAHMAN MD [ACTIVE STAFF] - Follow up as needed
[2016-08-26 02:29] VITALS: BP 151/75
== END 2016-08-26 02:29 | disposition home or self-care (01) ==
LOC: ER 21:58
DX: K40.90 Unilateral inguinal hernia, without obstruction or gangrene, not specified as recurrent (principal); I10 Essential (primary) hypertension; J44.9 Chronic obstructive pulmonary disease, unspecified; F17.200 Nicotine dependence, unspecified, uncomplicated; Z88.0 Allergy status to penicillin
CPT/HCPCS: 99283

== ENCOUNTER 2016-09-06 07:48 | Emergency (ER) | payer OTHER ==
[2016-09-06] MEDS ORDERED: DEXAMETHASONE SOD PHOS INJ 10 MG/1 ML VIAL IM ONE (09:00)
[2016-09-06] MEDS ORDERED: HYDROCODONE/ACETAMINOPHEN 5-325 MG TABLET PO ONE (09:01)
--- NOTE | 2016-09-06 09:02 | ER Document Report ---
ED General - General Chief Complaint: Groin Pain Stated Complaint: GROIN PAIN Mode of Arrival: Ambulatory Information source: Patient Notes: 51 yr old male with hx of inguinal hernia on the right presents with complaitns of pain. Pt also notes right sciatic pain. denies any fevers or chills, denies any nausea or vomiting . pt has had normal bm TRAVEL OUTSIDE OF THE [place] IN LAST 30 DAYS: No - HPI Onset: Other Onset/Duration: Intermittent Quality of pain: Achy Severity: Mild Pain Level: 1 Associated symptoms: Body/muscle aches, Other Exacerbated by: Movement Relieved by: Denies Similar symptoms previously: Yes Recently seen / treated by doctor: Yes - Related Data Allergies/Adverse Reactions: Penicillins Allergy (Intermediate, Verified 09/06/16 07:56) Hives ketorolac tromethamine [From Toradol] Adverse Reaction (Intermediate, Verified 09/06/16 07:56) headache Past Medical History - Social History Smoking Status: Current Every Day Smoker Cigarette use (# per day): Yes Chew tobacco use (# tins/day): No Smoking Education Provided: No Family History: Reviewed & Not Pertinent, Arthritis, CAD, CVA, DM, Hyperlipidemia, Hypertension, Malignancy Patient has suicidal ideation: No Patient has homicidal ideation: No - Past Medical History Cardiac Medical History: Reports: Hx Hypertension - Non-compliant with meds Pulmonary Medical History: Reports: Hx COPD Renal/ Medical History: Denies: Hx Peritoneal Dialysis Musculoskeltal Medical History: Reports Hx Arthritis, Reports Hx Musculoskeletal Deformity, Reports Hx Musculoskeletal Trauma Traumatic Medical History: Reports: Hx Fractures, Hx Traumatic Brain Injury Past Surgical History: Reports: Hx Abdominal Surgery - pyloric stenosis, Hx Neurologic Surgery - brain injury surgery, Hx Orthopedic Surgery - rt wrist tendon repair - Immunizations Immunizations up to date: Yes Hx Diphtheria, Pertussis, Tetanus Vaccination: Yes Review of Systems - Review of Systems Notes: REVIEW OF SYSTEMS: CONSTITUTIONAL : Denies fever, chills, or sweats. Denies recent illness. EENT: Denies eye, ear, throat, or mouth pain or symptoms. Denies nasal or sinus congestion or discharge. Denies throat, tongue, or mouth swelling or difficulty swallowing. CARDIOVASCULAR: Denies chest pain. Denies palpitations or racing or irregular heart beat. Denies ankle edema. RESPIRATORY: Denies cough, cold, or chest congestion. Denies shortness of breath, difficulty breathing, or wheezing. GASTROINTESTINAL: Denies abdominal pain or distention. Denies nausea, vomiting , or diarrhea. Denies blood in vomitus, stools, or per rectum. Denies black, tarry stools. Denies constipation. GENITOURINARY: Denies difficulty urinating, painful urination, burning, frequency, blood in urine, or discharge. MUSCULOSKELETAL: Admits to right flank pain to the groin down the leg to the knee SKIN: Denies rash, lesions or sores. HEMATOLOGIC : Denies easy bruising or bleeding. LYMPHATIC: Denies swollen, enlarged glands. NEUROLOGICAL: Denies confusion or altered mental status. Denies passing out or loss of consciousness. Denies dizziness or lightheadedness. Denies headache. Denies weakness or paralysis or loss of use of either side. Denies problems with gait or speech. Denies sensory loss, numbness, or tingling. Denies seizures. PSYCHIATRIC: Denies anxiety or stress. Denies depression, suicidal ideation, or homicidal ideation. ALL OTHER SYSTEMS REVIEWED AND NEGATIVE. Dictation was performed using [employer] voice recognition software PHYSICAL EXAMINATION: GENERAL: Well-appearing, well-nourished and in no acute distress. HEAD: Atraumatic, normocephalic. EYES: Pupils equal round and reactive to light, extraocular movements intact, sclera anicteric, conjunctiva are normal. ENT: Nares patent, oropharynx clear without exudates. Moist mucous membranes. NECK: Normal range of motion, supple without lymphadenopathy LUNGS: Breath sounds clear to auscultation bilaterally and equal. No wheezes rales or rhonchi. HEART: Regular rate and rhythm without murmurs ABDOMEN: Soft, nontender, nondistended abdomen. No guarding, no rebound. No masses appreciated. Small right inguinal hernia easily reducible Musculoskeletal: Normal range of motion, no pitting or edema. No cyanosis. Sciatic pain in the right proximal region NEUROLOGICAL: Cranial nerves grossly intact. Normal speech, normal gait. Normal sensory, motor exams PSYCH: Normal mood, normal affect. SKIN: Warm, Dry, normal turgor, no rashes or lesions noted. Physical Exam - Vital signs Vitals: Temp Pulse Resp BP Pulse Ox 98.4 F 85 20 176/99 H 96 09/06/16 07:56 09/06/16 07:56 09/06/16 07:56 09/06/16 07:56 09/06/16 07:56 Course - Re-evaluation Re-evalutation: 09/06/16 09:34 Patient will be treated with steroids pain control for his sciatica as well as his hernia. Patient will be given follow-up with surgery. Given that he is not vomiting has had normal bowel movements he is stable for discharge After performing a Medical Screening Examination, I estimate there is LOW risk for OPEN FRACTURE, COMPARTMENT SYNDROME, DEEP VENOUS THROMBOSIS, ACUTE TENDON RUPTURE, or NEUROVASCULAR INJURY thus I consider the discharge disposition reasonable. I have reevaluated this patient multiple times and no significant life threatening changes are noted. The patient and I have discussed the diagnosis and risks, and we agree with discharging home to closely follow-up with their primary doctor or the referral orthopedist with the understanding that symptoms and presentations can change. We also discussed returning to the Emergency Department immediately if new or worsening symptoms occur. We have discussed the symptoms which are most concerning (e.g., changing or worsening pain, numbness, weakness) that necessitate immediate return - Vital Signs Vital signs: Temp Pulse Resp BP Pulse Ox 98.1 F 74 16 186/98 H 96 09/06/16 09:21 09/06/16 09:21 09/06/16 09:21 09/06/16 09:21 09/06/16 09:21 Discharge - Discharge Clinical Impression: Hernia Sciatica Qualifiers: Laterality: right Qualified Code(s): M54.31 - Sciatica, right side Condition: Stable Disposition: HOME, SELF-CARE Instructions: Hernia ([facility]) Prescriptions: Hydrocodone/Acetaminophen [[place] 5-325 mg Tablet] 1 tab PO Q6 #14 tablet Referrals: EMI RAHMAN MD [ACTIVE STAFF] - Follow up tomorrow
[2016-09-06 09:22] VITALS: BP 186/98
== END 2016-09-06 09:24 | disposition home or self-care (01) ==
LOC: ER 07:48
DX: K40.90 Unilateral inguinal hernia, without obstruction or gangrene, not specified as recurrent (principal); M54.31 Sciatica, right side; Z88.0 Allergy status to penicillin; F17.210 Nicotine dependence, cigarettes, uncomplicated; I10 Essential (primary) hypertension; J44.9 Chronic obstructive pulmonary disease, unspecified
CPT/HCPCS: 99283; 96372; J1100

== ENCOUNTER 2016-10-08 15:46 | Observation (INO) | payer OTHER ==
[2016-10-08] MEDS ORDERED: METHOCARBAMOL 750 MG TABLET PO ONE (16:52)
--- NOTE | 2016-10-08 16:53 | ER Document Report ---
ED Medical Screen (RME) - General Chief Complaint: Groin Pain Stated Complaint: LOWER ABDOMINAL PAIN Time Seen by Provider: 10/08/16 16:43 Mode of Arrival: Ambulatory Information source: Patient Notes: Patient presents emergency department with complaints of right inguinal pain reports he has a hernia. Patient also reports right low back pain history of sciatica. Denies trauma. Denies fever vomiting diarrhea. Reports he is voiding without any problems. Patient has been here multiple multiple times for back pain in his hernia. TRAVEL OUTSIDE OF THE [place] IN LAST 30 DAYS: No - Related Data Allergies/Adverse Reactions: Penicillins Allergy (Intermediate, Verified 10/08/16 16:11) Hives ketorolac tromethamine [From Toradol] Adverse Reaction (Intermediate, Verified 10/08/16 16:11) headache Past Medical History - Social History Chew tobacco use (# tins/day): No Frequency of alcohol use: Occasional Drug Abuse: None - Past Medical History Cardiac Medical History: Reports: Hx Hypertension - Non-compliant with meds Pulmonary Medical History: Reports: Hx COPD Renal/ Medical History: Denies: Hx Peritoneal Dialysis Musculoskeltal Medical History: Reports Hx Arthritis, Reports Hx Musculoskeletal Deformity, Reports Hx Musculoskeletal Trauma Traumatic Medical History: Reports: Hx Fractures, Hx Traumatic Brain Injury Past Surgical History: Reports: Hx Abdominal Surgery - pyloric stenosis, Hx Neurologic Surgery - brain injury surgery, Hx Orthopedic Surgery - rt wrist tendon repair - Immunizations Immunizations up to date: Yes Hx Diphtheria, Pertussis, Tetanus Vaccination: Yes
[2016-10-08] MEDS ORDERED: HYDROMORPHONE HCL INJ/PF 2 MG/ML AMPULE IM ONE (17:52)
--- NOTE | 2016-10-08 18:16 | RADIOLOGY REPORT (SQ) ---
EXAM DESCRIPTION: U/S NON-OB PELVIS W/O DOP COMPLETED DATE/TIME: 10/08/2016 5:55 pm REASON FOR STUDY: eval hernia, inguinal COMPARISON: 08/22/2016 TECHNIQUE: Dynamic and static grayscale images acquired of the right inguinal region. LIMITATIONS: None. FINDINGS: Sonographic static images and cine loops show peristalsing loop of bowel within the inguin al hernia. IMPRESSION: Right inguinal hernia containing a loop of bowel. TECHNICAL DOCUMENTATION: JOB ID: [id number] [employer]- All Rights Reserved
--- NOTE | 2016-10-08 18:32 | ER Document Report ---
ED General - General Chief Complaint: Groin Pain Stated Complaint: LOWER ABDOMINAL PAIN Time Seen by Provider: 10/08/16 16:43 Mode of Arrival: Ambulatory Information source: Patient Notes: Patient presents emergency department with complaints of right groin pain. [place] was holding a pole steady. He reports he did not lift anything heavy when all of a sudden he felt more pain in his groin. Reports history of hernia. Patient also complains of low back pain. He denies other symptoms such as fever vomiting diarrhea. Denies problems voiding. Patient is complaining of severe pain and reports this pain is worse than normal. Patient has been evaluated multiple times for hernia and groin pain. He reports he tried to follow up with the surgeon he was referred to but was unable to pay the $300 they requested. TRAVEL OUTSIDE OF THE [place] IN LAST 30 DAYS: No - HPI Onset: This afternoon Onset/Duration: Sudden, Persistent Quality of pain: Achy, Sharp Severity: Severe Pain Level: 5 Associated symptoms: None Exacerbated by: Denies Relieved by: Denies Similar symptoms previously: Yes Recently seen / treated by doctor: Yes - Related Data Allergies/Adverse Reactions: Penicillins Allergy (Intermediate, Verified 10/08/16 16:11) Hives ketorolac tromethamine [From Toradol] Adverse Reaction (Intermediate, Verified 10/08/16 16:11) headache Past Medical History - General Information source: Patient - Social History Smoking Status: Current Every Day Smoker Cigarette use (# per day): Yes Chew tobacco use (# tins/day): No Frequency of alcohol use: Occasional Drug Abuse: None Family History: Reviewed & Not Pertinent, Arthritis, CAD, CVA, DM, Hyperlipidemia, Hypertension, Malignancy Patient has suicidal ideation: No Patient has homicidal ideation: No - Past Medical History Cardiac Medical History: Reports: Hx Hypertension - Non-compliant with meds Pulmonary Medical History: Reports: Hx COPD Renal/ Medical History: Denies: Hx Peritoneal Dialysis Musculoskeltal Medical History: Reports Hx Arthritis, Reports Hx Musculoskeletal Deformity, Reports Hx Musculoskeletal Trauma Traumatic Medical History: Reports: Hx Fractures, Hx Traumatic Brain Injury Past Surgical History: Reports: Hx Abdominal Surgery - pyloric stenosis, Hx Neurologic Surgery - brain injury surgery, Hx Orthopedic Surgery - rt wrist tendon repair - Immunizations Immunizations up to date: Yes Hx Diphtheria, Pertussis, Tetanus Vaccination: Yes Review of Systems - Review of Systems Notes: Review HPI for review of systems., All other systems negative Physical Exam - Notes Notes: PHYSICAL EXAMINATION: GENERAL: nontoxic looking HEAD: Atraumatic, normocephalic. EYES: Pupils equal round, extraocular movements intact, sclera anicteric, conjunctiva are normal. ENT: nares patent Moist mucous membranes. NECK: Normal range of motion, supple without lymphadenopathy LUNGS: CTAB and equal. No wheezes rales or rhonchi. HEART: Regular rate and rhythm without murmurs ABDOMEN: Soft, no tenderness. No guarding, no rebound EXTREMITIES: Normal range of motion, no pitting edema. . right inguinal ttp, small area unable to reduce NEUROLOGICAL: Cranial nerves grossly intact. Normal sensory/motor exams. PSYCH: Normal mood, normal affect. SKIN: Warm, Dry, normal turgor, no rashes or lesions noted Course - Re-evaluation Re-evalutation: 10/08/16 19:13 Attempted to reduce Inguinal hernia. I consulted Dr. Servin he also tried to reduce the hernia and was unable to, consulted with Dr. Martinez, he will be down to see patient. . 10/08/16 19:35 Dr Martinez in to see patient. Pt's had given him crackers to eat without staff 's knowing. Pt to be admitted for surgery in am. - Laboratory Result Diagrams: 10/08/16 18:41 10/08/16 18:41 - Diagnostic Test Radiology reviewed: Image reviewed, Reports reviewed - inguinal hernia containing bowel - Consults dr martinez Time consulted: 19:15 Reason for consultation: 10/08/16 20:31 inguinal hernia containing bowel Consulted provider: will come to ER Discharge - Discharge Clinical Impression: Inguinal hernia Qualifiers: Obstruction and gangrene presence: without obstruction or gangrene Laterality: unilateral Recurrence: not specified as recurrent Qualified Code(s): K40.90 - Unilateral inguinal hernia, without obstruction or gangrene, not specified as recurrent Condition: Stable Disposition: ADMITTED OBSERVATION Admitting Provider: Surgicalist Eliseo martinez
[2016-10-08 18:58] LABS: ABSOLUTE BASOPHILS # (AUTO) 0.1 10^3/uL (0.0-0.2); ABSOLUTE EOSINOPHILS # (AUTO) 0.2 10^3/uL (0.0-0.6); ABSOLUTE MONOCYTES (AUTO) 0.8 10^3/uL (0.1-1.4); ABSOLUTE NEUT (AUTO) 5.2 10^3/uL (1.7-8.2); BASOPHILS % (AUTO) 0.7 % (0-2); EOSINOPHILS % (AUTO) 2.9 % (0-6); HEMOGLOBIN 13.7 g/dL (13.5-17.0); HGB HCT DIFFERENCE 0.1; LYMPHOCYTES % (AUTO) 23.7 % (13-45); MEAN CORPUSCULAR HEMOGLOBIN 30.2 pg (27.0-33.4); MEAN CORPUSCULAR HGB CONC 33.5 g/dL (32.0-36.0); MEAN CORPUSCULAR VOLUME 90 fl (80-97); MONOCYTES % (AUTO) 9.4 % (3-13); RED BLOOD COUNT 4.55 10^6/uL (4.35-5.55); RED CELL DISTRIBUTION WIDTH 13.1 % (11.5-14.0); SEGMENTED NEUTROPHILS % (AUTO) 63.3 % (42-78); WHITE BLOOD COUNT 8.2 10^3/uL (4.0-10.5)
[2016-10-08 19:21] LABS: ALANINE AMINOTRANSFERASE 47 U/L (21-72); ALBUMIN 3.9 g/dL (3.5-5.0); ALKALINE PHOSPHATASE 75 U/L (38-126); ANION GAP 9 (5-19); ASPARTATE AMINO TRANSFERASE 34 U/L (17-59); BILIRUBIN,DIRECT 0.3 mg/dL (0.0-0.4); BILIRUBIN,TOTAL 0.4 mg/dL (0.2-1.3); BLOOD UREA NITROGEN 17 mg/dL (7-20); CALCIUM 9.1 mg/dL (8.4-10.2); CARBON DIOXIDE 25 mmol/L (22-30); CHLORIDE 105 mmol/L (98-107); CREATININE RESULT 0.83 mg/dL (0.52-1.25); GLUCOSE 82 mg/dL (75-110); POTASSIUM 4.3 mmol/L (3.6-5.0); SODIUM 138.8 mmol/L (137-145); TOTAL PROTEIN 7.2 g/dL (6.3-8.2)
[2016-10-08] MEDS ORDERED: ONDANSETRON HCL INJ/PF 4 MG/2 ML SDV IV PRN (19:54)
[2016-10-08] MEDS ORDERED: NORMAL SALINE 1000 ML 1,000 ML IV PRN (19:54)
--- NOTE | 2016-10-08 19:54 | PDOC H&P ---
History of Present Illness Patient complains of: Right groin pain History of Present Illness: ABBY HERNANDES is a 51 year old male presenting with a several month history of intermittent right groin bulge with associated pain. Patient has been seen in the emergency department several times in the past was diagnosed with inguinal hernia and was referred to general surgery but he has not followed up with general surgery. Patient now comes in with a several hour history of a severe right groin pain soon after strenuous activity. She denies any nausea or vomiting. In fact he ate about 30 minutes ago in the emergency department. He has a chronic cough but no constipation no urinary difficulty. Past Medical History Cardiac Medical History: Reports: Hypertension - Non-compliant with meds Pulmonary Medical History: Reports: Chronic Obstructive Pulmonary Disease (COPD) Musculoskeltal Medical History: Reports: Arthritis Traumatic Medical History: Reports: Traumatic Brain Injury Past Surgical History Past Surgical History: Reports: Orthopedic Surgery - rt wrist tendon repair, Other - What sounds like a chest tube placement in the remote past. Social History Smoking Status: Current Every Day Smoker Frequency of Alcohol Use: Social Hx Recreational Drug Use: No Family History Family History: Reviewed & Not Pertinent, Arthritis, CAD, CVA, DM, Hyperlipidemia, Hypertension, Malignancy Parental Family History Reviewed: No Children Family History Reviewed: No Sibling(s) Family History Reviewed.: No Medication/Allergy Home Medications: Hydrocodone/Acetaminophen [[place] 10-325 mg Tablet] 1 tab PO Q6HP PRN #14 tablet 08/22/16 Hydrocodone/Acetaminophen [[place] 5-325 mg Tablet] 1 tab PO Q6H PRN #9 tablet Hydrocodone/Acetaminophen [[place] 5-325 mg Tablet] 1 tab PO Q6 #14 tablet Allergies/Adverse Reactions: Penicillins Allergy (Intermediate, Verified 10/08/16 16:11) Hives ketorolac tromethamine [From Toradol] Adverse Reaction (Intermediate, Verified 10/08/16 16:11) headache Physical Exam Vital Signs: Intake & Output 10/07/16 10/08/16 10/09/16 06:59 06:59 06:59 Weight 83.4 kg General appearance: PRESENT: no acute distress, cooperative Eye exam: PRESENT: conjunctiva pink Neck exam: PRESENT: other - Supple and nontender Respiratory exam: PRESENT: clear to auscultation ailin Cardiovascular exam: PRESENT: RRR GI/Abdominal exam: PRESENT: other - Soft, nondistended, nontender to palpation Gentrourinary exam: PRESENT: other - No scrotal swelling. No testicular masses. Right groin bulge that is reducible with tenderness. The hernia does not extend to the scrotum. No overlying erythema no induration no hernia palpable on the left side. Extremities exam: PRESENT: other - No edema no swelling. Neurological exam: PRESENT: alert, awake, oriented to person, oriented to place , oriented to situation Psychiatric exam: PRESENT: appropriate affect Results Laboratory Results: 10/08/16 18:41 10/08/16 18:41 10/08/16 10/08/16 18:41 18:41 WBC 8.2 RBC 4.55 Hgb 13.7 Hct 41.0 MCV 90 MCH 30.2 MCHC 33.5 RDW 13.1 Plt Count 209 Seg Neutrophils % 63.3 Lymphocytes % 23.7 Monocytes % 9.4 Eosinophils % 2.9 Basophils % 0.7 Absolute Neutrophils 5.2 Absolute Lymphocytes 2.0 Absolute Monocytes 0.8 Absolute Eosinophils 0.2 Absolute Basophils 0.1 Sodium 138.8 Potassium 4.3 Chloride 105 Carbon Dioxide 25 Anion Gap 9 BUN 17 Creatinine 0.83 Est GFR ( Amer) > 60 Est GFR (Non-Af Amer) > 60 Glucose 82 Calcium 9.1 Total Bilirubin 0.4 AST 34 ALT 47 Alkaline Phosphatase 75 Total Protein 7.2 Albumin 3.9 Impressions: Pelvis Ultrasound 10/08/16 16:48 IMPRESSION: Right inguinal hernia containing a loop of bowel. Assessment & Plan - Diagnosis (1) Inguinal hernia Qualifiers: Obstruction and gangrene presence: without obstruction or gangrene Laterality: unilateral Is this a current diagnosis for this admission?: YesPlan: It sounds like it was incarcerated but it is easily reducible now. Patient just ate so I cannot do surgery safely at this point. I will admit the patient and will plan for inguinal hernia repair in the morning. Will check chest x- ray in light of his chronic cough and a cigarette smoking abuse.
--- NOTE | 2016-10-08 20:20 | RADIOLOGY REPORT (SQ) ---
EXAM DESCRIPTION: CHEST PA/LAT COMPLETED DATE/TIME: 10/08/2016 8:12 pm REASON FOR STUDY: Preop. Chronic cough. COMPARISON: 05/18/2016. EXAM PARAMETERS: NUMBER OF VIEWS: two views TECHNIQUE: Digital Frontal and Lateral radiographic views of the chest acquired. RADIATION DOSE: NA LIMITATIONS: none FINDINGS: LUNGS AND PLEURA: No opacities, masses or pneumothorax. No pleural effusion. MEDIASTINUM AND HILAR STRUCTURES: No masses or contour abnormalities. HEART AND VASCULAR STRUCTURES: Heart normal size. No evidence for failure. BONES: No acute findings. HARDWARE: None in the chest. OTHER: No other significant finding. IMPRESSION: NO SIGNIFICANT RADIOGRAPHIC FINDING IN THE CHEST. TECHNICAL DOCUMENTATION: JOB ID: [id number] [employer]- All Rights Reserved
[2016-10-08] MEDS: MORPHINE SULFATE 10 MG/ML INJ IV PRN (20:47)
[2016-10-08 21:30] LABS: APPEARANCE,URINE CLEAR; GLUCOSE, URINE NEGATIVE (NEGATIVE)
[2016-10-08 21:31] LABS: BILIRUBIN,URINE NEGATIVE (NEGATIVE); KETONES,URINE NEGATIVE (NEGATIVE); LEUKOCYTE ESTERASE,URINE NEGATIVE (NEGATIVE); NITRITE,URINE NEGATIVE (NEGATIVE); PROTEIN,URINE NEGATIVE (NEGATIVE); RBC,URINE 0-1 /HPF; URINE SPECIFIC GRAVITY 1.016; UROBILINOGEN,URINE NEGATIVE mg/dL (<2.0); WBC,URINE 0-1 /HPF
[2016-10-09] MEDS: MORPHINE SULFATE 10 MG/ML INJ IV PRN ×5 (00:11→19:18)
[2016-10-09] MEDS ORDERED: ALBUTEROL SULFATE 0.083% NEB 2.5 MG/3 ML AMPUL NEB ONE (10:30)
[2016-10-09] MEDS ORDERED: FENTANYL CITRATE INJ/PF 250 MCG/5 ML AMPULE ONE (10:41)
[2016-10-09] MEDS ORDERED: PROPOFOL INJ 200 MG/20 ML VIAL IV ONE (10:42)
[2016-10-09] MEDS ORDERED: CEFAZOLIN INJ 1 GM VIAL ONE (10:42)
[2016-10-09] MEDS ORDERED: MIDAZOLAM 2 MG/2 ML INJ ONE (10:42)
[2016-10-09] MEDS ORDERED: ACETAMINOPHEN 100 ML IV ONE (10:42)
[2016-10-09] MEDS ORDERED: MORPHINE SULFATE 10 MG/ML INJ ONE (10:43)
[2016-10-09] MEDS: CEFAZOLIN 2 GM/D5W RTU 2 GM/50 ML RTUPB IV PRN ×2 (10:50→14:24)
[2016-10-09] MEDS ORDERED: BUPIVACAINE INJ/PF LIPOSOME/PF 266 MG/20 ML SDV ONE (10:58)
--- NOTE | 2016-10-09 10:59 | EKG REPORT ---
SEVERITY:- NORMAL ECG - SINUS RHYTHM : Confirmed by: Pily Diaz MD 09-Oct-2016 10:57:57
[2016-10-09] MEDS ORDERED: OXYCODONE-ACETAMINOPHEN 5-325 MG TABLET PO PRN ×2 (12:22)
[2016-10-09] MEDS ORDERED: MEPERIDINE HCL/PF INJ 25 MG/1 ML DISP.SYRIN IV PRN (12:22)
[2016-10-09] MEDS ORDERED: PROMETHAZINE HCL INJ 25 MG/1 ML VIAL IV PRN ×2 (12:22)
[2016-10-09] MEDS ORDERED: FENTANYL CITRATE INJ/PF 100 MCG/2 ML AMPUL IV PRN ×3 (12:22)
[2016-10-09] MEDS ORDERED: DIPHENHYDRAMINE HCL 50 MG/ML VIAL IV PRN (12:22)
[2016-10-09] MEDS ORDERED: MORPHINE SULFATE 10 MG/ML INJ IV PRN (12:22)
[2016-10-09] MEDS: FENTANYL CITRATE INJ/PF 100 MCG/2 ML AMPUL ONE ×2 (13:25→13:30)
[2016-10-09] MEDS: OXYCODONE-ACETAMINOPHEN 5-325 MG TABLET PO PRN ×2 (14:29→18:32)
[2016-10-09] MEDS ORDERED: CEFAZOLIN 2 GM/D5W RTU 2 GM/50 ML RTUPB IV ONE (16:00)
[2016-10-09] MEDS ORDERED: ONDANSETRON HCL INJ/PF 4 MG/2 ML SDV ONE (19:30)
[2016-10-09] MEDS ORDERED: METOCLOPRAMIDE HCL INJ/PF 10 MG/2 ML SDV ONE (19:30)
[2016-10-09] MEDS ORDERED: LIDOCAINE 2% INJ-PF (20 MG/ML) 10 ML AMPUL ONE (19:30)
[2016-10-09] MEDS ORDERED: ROCURONIUM BROMIDE INJ 50 MG/5 ML VIAL IV ONE (19:30)
[2016-10-09] MEDS ORDERED: VECURONIUM BROMIDE INJ 10 MG VIAL IV ONE (19:30)
[2016-10-09] MEDS ORDERED: SUCCINYLCHOLINE CHLORIDE INJ 200 MG/10 ML VIAL ONE (19:30)
[2016-10-09 19:40] VITALS: BP 169/88
--- NOTE | 2016-10-09 20:53 | OPERATIVE REPORT E ---
Operative Report NAME: ABBY HERNANDES : 1965 AGE: 51Y DATE OF SURGERY: 10/09/2016 ROOM: 414 PREOPERATIVE DIAGNOSIS: Incarcerated right inguinal hernia. POSTOPERATIVE DIAGNOSIS: Incarcerated right inguinal hernia. OPERATION: 1. Reduction of incarcerated right inguinal hernia. 2. Repair of right inguinal with mesh plug. SURGEON: BOB AGRWAAL M.D. ANESTHESIA: General. INDICATION: This is a 51-year-old male who has been complaining of right inguinal pains. He was admitted last night for incarcerated right inguinal hernia. He was noted to be tender in the right inguinal area. DESCRIPTION OF PROCEDURE: After adequate general anesthesia, the patient was placed in a supine position and the right groin prepped and draped in the usual sterile fashion. A right inguinal incision was made and carried down through the [place] with cautery. Bleeders were clamped and ligated with 2-0 silk. The external oblique aponeurosis was then identified and subsequently divided and extended towards the internal ring. The hernia sac in the cord was then dissected and noted to have bulging that was quite difficult to reduce. Because of this, the sac was then opened and appendix was noted to be attached to the wall of the hernia sac. The adhesion was subsequently sharply divided. The appendix, which was noted to be normal, was then pushed down into the abdominal cavity. The hernia sac opening was then sutured with running 2-0 Vicryl suture. The sac was then completely divided and specimen removed and sent to pathology. The hernia sac was then dissected down into the neck and subsequently pushed down with mesh plug. The plug was then sutured with 2-0 Vicryl to the shelving portion of the inguinal ligament and conjoint tendon. Another mesh was then placed on top of the plug and sutured to the area of symphysis pubis with interrupted suture using 2-0 Vicryl. The mesh was then placed around the cord and sutured together down. The operative site was then gently irrigated with saline solution and hemostasis obtained with cautery. The external oblique aponeurosis was then reapproximated with running suture using 2-0 Vicryl starting from the lateral end towards the medial, leaving the cord structures about 2.5 cm without compressing it. The [place] was then reapproximated with interrupted sutures using 3-0 Vicryl and the skin closed with running subcuticular closure using 4-0 Vicryl undyed. Dermabond was then used as a dressing. The scrotum was pulled distally after the procedure. The patient tolerated the procedure well. Needle, instrument and sponge counts were correct and estimated blood loss was minimal. The patient was brought to recovery in satisfactory condition. DICTATING PHYSICIAN: BOB AGRAWAL M.D. [id number] PHY#: [id number] 2018 ID: [id number] JOB#: [id number] ACCT: [id number] cc:BOB AGRAWAL M.D. >
--- NOTE | 2016-11-27 14:14 | DISCHARGE SUMMARY E ---
Discharge Summary NAME: ABBY HERNANDES : 1965 AGE: 51Y ADMITTED: 10/08/2016 DISCHARGED: 10/09/2016 PROCEDURE DONE: On 10/09/2016: 1. Reduction of incarcerated right inguinal hernia. 2. Repair of right inguinal hernia with mesh plug. HOSPITAL COURSE: This is a 51-year-old male who has been complaining of right inguinal pains for the past few months off and on. He was admitted last night on 10/08/2016 for incarcerated right inguinal hernia. Unfortunately patient ate that night and since he is not in severe distress, the surgery was scheduled in the morning. On 10/09/2016, I did a reduction of incarcerated right inguinal hernia and repair of the right inguinal hernia with mesh plug. Postoperatively patient did well and discharged the night of 10/09/2016. PLAN: Patient to be followed up in the surgical clinic in about 2 weeks. Patient advised not to do any lifting more than 10 pounds for the next 2 weeks until seen in the clinic. He can have a regular diet. A prescription for Percocet was given to the patient. DICTATING PHYSICIAN: BOB AGRAWAL M.D. [id number] PHY#: [id number] ID: [id number] JOB#: [id number] ACCT: [id number] cc:BOB AGRAWAL M.D., PATRICIA N.P. >
== END 2016-10-09 19:55 | disposition home or self-care (01) ==
LOC: ER 15:46 → EH 19:55 → UNDOADMOB 20:37 → 4N 22:12
PROC: 0YU50JZ Supplement Right Inguinal Region with Synthetic Substitute, Open Approach (ICD-10-PCS; principal; 2016-10-09 10:15)
DX: K40.30 Unilateral inguinal hernia, with obstruction, without gangrene, not specified as recurrent (principal); R05 Cough; M54.5 Low back pain; F17.210 Nicotine dependence, cigarettes, uncomplicated; I10 Essential (primary) hypertension; Z91.14 Patient's other noncompliance with medication regimen
CPT/HCPCS: 99285; 96361; 96374; 96375; 36415; 85025; 80053; 81001; 88302 ×2; 71020; 76856; 93005; 93010; 49507; C1781; J2250; J0690 ×2; J3490 ×4; J3010 ×2; J2765; J2270 ×2; J1170; J0330; J2405 ×2; J7030; J2704; J0131; C9290; 830; G0378

== ENCOUNTER 2016-10-10 08:57 | Emergency (ER) | payer OTHER ==
[2016-10-10 09:04] VITALS: BP 175/84
[2016-10-10] MEDS ORDERED: HYDROMORPHONE HCL INJ/PF 2 MG/ML AMPULE IM ONE (09:29)
[2016-10-10] MEDS ORDERED: IBUPROFEN 800 MG TABLET PO ONE (09:29)
--- NOTE | 2016-10-10 09:35 | ER Document Report ---
ED General - General Chief Complaint: Post Surgical Pain Stated Complaint: GROIN PAIN Time Seen by Provider: 10/10/16 09:21 Mode of Arrival: Ambulatory Information source: Patient Notes: This is a 51-year-old male with hypertension and COPD who presents postop day 1 status post right inguinal hernia repair. He presents for postop pain and states that his Percocet is not controlling his pain. He last took Percocet about 3 hours ago and states he has been taking one at a time. He had his surgery yesterday afternoon and was discharged last evening. He states that he did not rest as he was instructed but did carry some light groceries and thinks that he overdid it. He denies any fevers or chills. No dysuria. He is tolerating PO well with no nausea or vomiting. He presents today asking for something stronger for his postop pain. TRAVEL OUTSIDE OF THE [place] IN LAST 30 DAYS: No - Related Data Allergies/Adverse Reactions: Penicillins Allergy (Intermediate, Verified 10/10/16 09:01) Hives ketorolac tromethamine [From Toradol] Adverse Reaction (Intermediate, Verified 10/10/16 09:01) headache Past Medical History - General Information source: Patient, [facility] - Social History Smoking Status: Current Every Day Smoker Chew tobacco use (# tins/day): No Frequency of alcohol use: Rare Drug Abuse: None Family History: Reviewed & Not Pertinent, Arthritis, CAD, CVA, DM, Hyperlipidemia, Hypertension, Malignancy Patient has suicidal ideation: No Patient has homicidal ideation: No - Past Medical History Cardiac Medical History: Reports: Hx Hypertension - Non-compliant with meds Denies: Hx Congestive Heart Failure, Hx Heart Attack Pulmonary Medical History: Reports: Hx Bronchitis, Hx COPD, Hx Pneumonia Denies: Hx Asthma, Hx Tuberculosis Neurological Medical History: Denies: Hx Seizures Renal/ Medical History: Denies: Hx Benign Prostatic Hyperplasia, Hx End Stage Renal Disease, Hx Peritoneal Dialysis GI Medical History: Denies: Hx Cirrhosis, Hx Gastroesophageal Reflux Disease, Hx Ulcer Musculoskeltal Medical History: Reports Hx Arthritis, Denies Hx Multiple Sclerosis, Reports Hx Musculoskeletal Deformity, Reports Hx Musculoskeletal Trauma Psychiatric Medical History: Denies: Hx Bipolar Disorder, Hx Depression, Hx Schizophrenia Traumatic Medical History: Reports: Hx Fractures, Hx Traumatic Brain Injury Past Surgical History: Reports: Hx Abdominal Surgery - pyloric stenosis, rt. ing. jasmeet., Hx Neurologic Surgery - brain injury surgery, Hx Orthopedic Surgery - rt wrist tendon repair, Other - What sounds like a chest tube placement in the remote past. - Immunizations Immunizations up to date: Yes Hx Diphtheria, Pertussis, Tetanus Vaccination: Yes Review of Systems - Review of Systems Constitutional: No symptoms reported. denies: Chills, Fever EENT: No symptoms reported Cardiovascular: No symptoms reported Respiratory: No symptoms reported Gastrointestinal: No symptoms reported. denies: Abdominal pain, Nausea, Vomiting Genitourinary: See HPI. denies: Burning, Dysuria Male Genitourinary: See HPI Musculoskeletal: No symptoms reported Skin: No symptoms reported Hematologic/Lymphatic: No symptoms reported Neurological/Psychological: No symptoms reported Physical Exam - Vital signs Vitals: Temp Pulse Resp BP Pulse Ox 98.1 F 77 16 175/84 H 96 10/10/16 09:01 10/10/16 09:01 10/10/16 09:01 10/10/16 09:01 10/10/16 09:01 - Notes Notes: PHYSICAL EXAMINATION: GENERAL: Well-appearing, well-nourished and in no acute distress. Pleasant and conversant. HEAD: Atraumatic, normocephalic. EYES: Pupils equal round and reactive to light, extraocular movements intact, sclera anicteric, conjunctiva are normal. ENT: nares patent, oropharynx clear without exudates. Moist mucous membranes. LUNGS: Breath sounds clear to auscultation bilaterally and equal. No wheezes rales or rhonchi. HEART: Regular rate and rhythm without murmurs ABDOMEN/: Soft, nontender, normoactive bowel sounds. R inguinal incision c/d /i. No erythema/induration/drainage. Mild inguinal and scrotal edema with bruising consistent with post-op healing. TTP throughout but appropriate for post-op. EXTREMITIES: Normal range of motion NEUROLOGICAL: No gross focal motor or sensory deficits appreciated. Course - Re-evaluation Re-evalutation: 10/10/16 10:16 Surgeon, Dr. Zimmer, evaluated patient and agrees that wound appears well. Pt to be discharged. Return precautions discussed. - Vital Signs Vital signs: Temp Pulse Resp BP Pulse Ox 98.1 F 77 16 175/84 H 96 10/10/16 09:01 10/10/16 09:01 10/10/16 09:01 10/10/16 09:01 10/10/16 09:01 Discharge - Discharge Clinical Impression: Postoperative pain, Elevated blood pressure reading Condition: Stable Disposition: HOME, SELF-CARE Additional Instructions: Continue pain medication as prescribed. You can add ibuprofen as discussed. Keep your postop appointment as scheduled. Return to the ER for fever or worsening symptoms or concerns. Forms: Elevated Blood Pressure
== END 2016-10-10 10:00 | disposition home or self-care (01) ==
LOC: ER 08:57
DX: G89.18 Other acute postprocedural pain (principal); R10.30 Lower abdominal pain, unspecified; I10 Essential (primary) hypertension; J44.9 Chronic obstructive pulmonary disease, unspecified; F17.200 Nicotine dependence, unspecified, uncomplicated; Z88.0 Allergy status to penicillin
CPT/HCPCS: 99283; 96372; J1170

== ENCOUNTER 2016-10-20 08:21 | Emergency (ER) | payer OTHER ==
[2016-10-20] MEDS ORDERED: TRAMADOL HCL 50 MG TABLET PO ONE (09:40)
[2016-10-20] MEDS ORDERED: IBUPROFEN 800 MG TABLET PO ONE (09:40)
--- NOTE | 2016-10-20 09:40 | ER Document Report ---
HPI - HPI Patient complains to provider of: pain medication Pain Level: 4 Context: Patient is a 51-year-old male here today for prescription for tramadol. Patient had right inguinal hernia repair done by Dr. Esqueda on October 06. Patient states that he is taking Percocet and tramadol at home for pain and ran out and came in today for more medication. Patient previously taking BC powder but denies any other NSAID such as Aleve, Motrin, Tylenol. Patient states he is due to follow-up with him on Wednesday. Denies any fevers, chills, redness, swelling, drainage from the surgical site. Denies any urinary symptoms. - CARDIOVASCULAR Cardiovascular: DENIES: Chest pain - REPRODUCTIVE Reproductive: DENIES: : - DERM Skin Color: Normal Past Medical History - Social History Smoking Status: Current Every Day Smoker Chew tobacco use (# tins/day): No Frequency of alcohol use: Occasional Drug Abuse: None Family History: Reviewed & Not Pertinent, Arthritis, CAD, CVA, DM, Hyperlipidemia, Hypertension, Malignancy Patient has suicidal ideation: No Patient has homicidal ideation: No - Past Medical History Cardiac Medical History: Reports: Hx Hypertension - Non-compliant with meds Denies: Hx Congestive Heart Failure, Hx Heart Attack Pulmonary Medical History: Reports: Hx Bronchitis, Hx COPD, Hx Pneumonia Denies: Hx Asthma, Hx Tuberculosis Neurological Medical History: Denies: Hx Seizures Renal/ Medical History: Denies: Hx Benign Prostatic Hyperplasia, Hx End Stage Renal Disease, Hx Peritoneal Dialysis GI Medical History: Denies: Hx Cirrhosis, Hx Gastroesophageal Reflux Disease, Hx Ulcer Musculoskeltal Medical History: Reports Hx Arthritis, Denies Hx Multiple Sclerosis, Reports Hx Musculoskeletal Deformity, Reports Hx Musculoskeletal Trauma Psychiatric Medical History: Denies: Hx Bipolar Disorder, Hx Depression, Hx Schizophrenia Traumatic Medical History: Reports: Hx Fractures, Hx Traumatic Brain Injury Past Surgical History: Reports: Hx Abdominal Surgery - pyloric stenosis, rt. ing. jasmeet., Hx Neurologic Surgery - brain injury surgery, Hx Orthopedic Surgery - rt wrist tendon repair, Other - What sounds like a chest tube placement in the remote past. - Immunizations Immunizations up to date: Yes Hx Diphtheria, Pertussis, Tetanus Vaccination: Yes Vertical Provider Document - CONSTITUTIONAL Agree With Documented VS: Yes Exam Limitations: No Limitations General Appearance: WD/WN, No Apparent Distress - INFECTION CONTROL TRAVEL OUTSIDE OF THE [place] IN LAST 30 DAYS: No - RESPIRATORY Respiratory: Breath Sounds Normal, No Respiratory Distress, Chest Non-Tender O2 Sat by Pulse Oximetry: 98 - CARDIOVASCULAR Cardiovascular: Regular Rate, Regular Rhythm, No Murmur Pulses: Normal: Femoral - REPRODUCTIVE Male Genitalia: Normal Inspection Notes: Testicles nontender to palpation. No evidence of inguinal hernia on exam. Patient cremasteric reflexes intact bilaterally. - MUSCULOSKELETAL/EXTREMETIES Musculoskeletal/Extremeties: MAEW, FROM, Non-Tender, No Edema - NEURO Level of Consciousness: Awake, Alert, Appropriate Motor/Sensory: No Motor Deficit, No Sensory Deficit - DERM Integumentary: Warm, Dry, No Rash Adult Front & Back Diagram: 1 - Right inguinal hernia repair incision with no evidence of inflammation, erythema, induration, fluctuance, drainage, wound dehiscence, nontender to palpation. Course - Re-evaluation Re-evalutation: 10/20/16 09:40 Patient is a 51-year-old male hemodynamic stable, no acute distress afebrile. No evidence of infection, pain out of proportion with healing consistent for inguinal hernia repair. Discussed with patient the department policy on managing pain especially in postop surgical patient. Patient agrees for Tylenol with Codeine and follow-up with surgeon on Wednesday. - Vital Signs Vital signs: Temp Pulse Resp BP Pulse Ox 98.5 F 105 H 22 H 171/108 H 98 10/20/16 08:27 10/20/16 08:27 10/20/16 08:27 10/20/16 08:27 10/20/16 08:27 Discharge - Discharge Clinical Impression: Post-op pain Condition: Good Disposition: HOME, SELF-CARE Additional Instructions: Please take your medications as prescribed Follow up with surgery on Wednesday as scheduled Prescriptions: Acetaminophen with Codeine [Tylenol #3 Tablet] 1 each PO Q6HP PRN #20 tablet PRN Reason: Ibuprofen [Motrin 800 mg Tablet] 800 mg PO Q8H PRN #30 tab PRN Reason: Forms: Elevated Blood Pressure Referrals: BOB AGRAWAL MD [LARA LEZAMA] - 10/23/16
[2016-10-20 09:55] VITALS: BP 157/97
== END 2016-10-20 09:55 | disposition home or self-care (01) ==
LOC: ER 08:21
DX: G89.18 Other acute postprocedural pain (principal); F17.200 Nicotine dependence, unspecified, uncomplicated; I10 Essential (primary) hypertension; J44.9 Chronic obstructive pulmonary disease, unspecified
CPT/HCPCS: 99281

== ENCOUNTER 2016-11-16 15:44 | Emergency (ER) | payer OTHER ==
[2016-11-16 15:58] VITALS: BP 171/112
--- NOTE | 2016-11-16 16:55 | ER Document Report ---
ED Medical Screen (RME) - General Chief Complaint: Abdominal Pain Stated Complaint: POSSIBLE HERNIA Time Seen by Provider: 11/16/16 16:49 Notes: patient is a 51 year old male who had an inguinal hernia repair 10/08/16. has not been cleared to return to work and has been heavy lifting. admits to pain. denies n/v/d/c. pain over inguinal area with radiation into groin TRAVEL OUTSIDE OF THE [place] IN LAST 30 DAYS: No - Related Data Allergies/Adverse Reactions: Penicillins Allergy (Intermediate, Verified 11/16/16 15:54) Hives ketorolac tromethamine [From Toradol] Adverse Reaction (Intermediate, Verified 11/16/16 15:54) headache Past Medical History - Past Medical History Cardiac Medical History: Reports: Hx Hypertension - Non-compliant with meds Denies: Hx Congestive Heart Failure, Hx Heart Attack Pulmonary Medical History: Reports: Hx Bronchitis, Hx COPD, Hx Pneumonia Denies: Hx Asthma, Hx Tuberculosis Neurological Medical History: Denies: Hx Seizures Renal/ Medical History: Denies: Hx Benign Prostatic Hyperplasia, Hx End Stage Renal Disease, Hx Peritoneal Dialysis GI Medical History: Denies: Hx Cirrhosis, Hx Gastroesophageal Reflux Disease, Hx Ulcer Musculoskeltal Medical History: Reports Hx Arthritis, Denies Hx Multiple Sclerosis, Reports Hx Musculoskeletal Deformity, Reports Hx Musculoskeletal Trauma Psychiatric Medical History: Denies: Hx Bipolar Disorder, Hx Depression, Hx Schizophrenia Traumatic Medical History: Reports: Hx Fractures, Hx Traumatic Brain Injury Past Surgical History: Reports: Hx Abdominal Surgery - pyloric stenosis, rt. ing. jasmeet., Hx Neurologic Surgery - brain injury surgery, Hx Orthopedic Surgery - rt wrist tendon repair, Other - What sounds like a chest tube placement in the remote past. - Immunizations Immunizations up to date: Yes Hx Diphtheria, Pertussis, Tetanus Vaccination: Yes Physical Exam - Vital signs Vitals: Temp Pulse Resp BP Pulse Ox 98.1 F 92 20 171/112 H 98 11/16/16 15:54 11/16/16 15:54 11/16/16 15:54 11/16/16 15:54 11/16/16 15:54 Course - Vital Signs Vital signs: Temp Pulse Resp BP Pulse Ox 98.1 F 92 20 171/112 H 98 11/16/16 15:54 11/16/16 15:54 11/16/16 15:54 11/16/16 15:54 11/16/16 15:54
[2016-11-16] MEDS ORDERED: TRAMADOL HCL 50 MG TABLET PO ONE ×2 (16:56)
--- NOTE | 2016-11-16 17:42 | ER Document Report ---
HPI - HPI Pain Level: 4 Context: Patient is a 51-year-old male who presents emergency department complaining of right groin pain. Patient underwent a right inguinal hernia with mesh repair on October 08. 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 Patient states that since he has been doing this he has had groin pain. Patient denies any abnormal bowel movements, nausea, vomiting, diarrhea, constipation. Patient states that he only notices the pain when he walks certain ways but otherwise he does not notice any increasing bulge or pain in his testicles. - REPRODUCTIVE Reproductive: DENIES: : - DERM Skin Color: Normal Past Medical History - Social History Smoking Status: Never Smoker Family History: Reviewed & Not Pertinent, Arthritis, CAD, CVA, DM, Hyperlipidemia, Hypertension, Malignancy Patient has suicidal ideation: No Patient has homicidal ideation: No - Past Medical History Cardiac Medical History: Reports: Hx Hypertension - Non-compliant with meds Denies: Hx Congestive Heart Failure, Hx Heart Attack Pulmonary Medical History: Reports: Hx Bronchitis, Hx COPD, Hx Pneumonia Denies: Hx Asthma, Hx Tuberculosis Neurological Medical History: Denies: Hx Seizures Renal/ Medical History: Denies: Hx Benign Prostatic Hyperplasia, Hx End Stage Renal Disease, Hx Peritoneal Dialysis GI Medical History: Denies: Hx Cirrhosis, Hx Gastroesophageal Reflux Disease, Hx Ulcer Musculoskeltal Medical History: Reports Hx Arthritis, Denies Hx Multiple Sclerosis, Reports Hx Musculoskeletal Deformity, Reports Hx Musculoskeletal Trauma Psychiatric Medical History: Denies: Hx Bipolar Disorder, Hx Depression, Hx Schizophrenia Traumatic Medical History: Reports: Hx Fractures, Hx Traumatic Brain Injury Past Surgical History: Reports: Hx Abdominal Surgery - pyloric stenosis, rt. ing. jasmeet., Hx Neurologic Surgery - brain injury surgery, Hx Orthopedic Surgery - rt wrist tendon repair, Other - What sounds like a chest tube placement in the remote past. - Immunizations Immunizations up to date: Yes Hx Diphtheria, Pertussis, Tetanus Vaccination: Yes Vertical Provider Document - CONSTITUTIONAL Agree With Documented VS: Yes Exam Limitations: No Limitations General Appearance: WD/WN, No Apparent Distress - INFECTION CONTROL TRAVEL OUTSIDE OF THE [place] IN LAST 30 DAYS: No - RESPIRATORY O2 Sat by Pulse Oximetry: 98 - CARDIOVASCULAR Pulses: Normal: Femoral - GI/ABDOMEN Gastrointestinal: Abdomen Soft, Abdomen Non-Tender, No Organomegaly, Normal Bowel Sounds - REPRODUCTIVE Male Genitalia: Normal Inspection Notes: Evidence of right inguinal hernia repair is done incision without any evidence of dehiscence or infection. Tenderness to palpation but no evidence of inguinal hernia. Testicles nontender, no appreciation of hernia. Cremasteric reflex intact bilaterally - MUSCULOSKELETAL/EXTREMETIES Musculoskeletal/Extremeties: MAEW, FROM, Non-Tender, No Edema. negative: Eccymosis - NEURO Level of Consciousness: Awake, Alert, Appropriate Motor/Sensory: No Motor Deficit, No Sensory Deficit - DERM Integumentary: Warm, Dry, No Rash Course - Re-evaluation Re-evalutation: 11/16/16 21:38 Patient is a 51-year-old male who is hemodynamic stable, no acute distress afebrile. Patient presents emergency department for pain management. Patient educated on appropriate lifting techniques but more importantly to week for clearance from his surgeon for heavy lifting. Patient placed on a 15 pound lifting restriction until cleared by his surgeon to return to work at full capacity. Otherwise patient stable for discharge home. - Vital Signs Vital signs: Temp Pulse Resp BP Pulse Ox 98.1 F 92 20 171/112 H 98 11/16/16 15:54 11/16/16 15:54 11/16/16 15:54 11/16/16 15:54 11/16/16 15:54 Discharge - Discharge Clinical Impression: Abdominal muscle strain Qualifiers: Encounter type: initial encounter Qualified Code(s): S39.011A - Strain of muscle, fascia and tendon of abdomen, initial encounter Condition: Good Disposition: HOME, SELF-CARE Instructions: Muscle Strain ([facility]), Ice Packs ([facility]), Warm Packs ([facility]) Prescriptions: Acetaminophen with Codeine [Acetaminophen-Cod #3 Tablet] 1 each PO BID #14 tablet Ibuprofen [Motrin 800 mg Tablet] 800 mg PO Q8H PRN #30 tab PRN Reason: Forms: Elevated Blood Pressure, Special Work Note, Return to Work Referrals: RACHEL BOWMAN MD [NO LOCAL MD] - Follow up in 1 week
== END 2016-11-16 17:57 | disposition home or self-care (01) ==
LOC: ER 15:44
DX: S39.011A Strain of muscle, fascia and tendon of abdomen, initial encounter (principal); X50.0XXA Overexertion from strenuous movement or load, initial encounter; Y99.0 Civilian activity done for income or pay; Z98.890 Other specified postprocedural states; I10 Essential (primary) hypertension; Z91.14 Patient's other noncompliance with medication regimen
CPT/HCPCS: 99283

== ENCOUNTER 2017-02-03 12:18 | Emergency (ER) | payer OTHER ==
[2017-02-03] MEDS ORDERED: ALBUTEROL SULFATE 0.083% NEB 2.5 MG/3 ML AMPUL NEB ONE ×3 (12:44→13:27)
[2017-02-03] MEDS ORDERED: PREDNISONE 20 MG TABLET PO ONE (12:44)
[2017-02-03] MEDS ORDERED: HYDROCODONE/ACETAMINOPHEN 5-325 MG TABLET PO ONE (12:44)
[2017-02-03] MEDS ORDERED: IPRATROPIUM/ALBUTEROL 0.5-2.5 MG/3 ML AMPUL NEB ONE (12:44)
--- NOTE | 2017-02-03 12:48 | ER Document Report ---
ED Respiratory Problem - General Chief Complaint: Shortness Of Breath Stated Complaint: SHORTNESS OF BREATH Time Seen by Provider: 02/03/17 12:40 Mode of Arrival: Ambulatory Information source: Patient TRAVEL OUTSIDE OF THE [place] IN LAST 30 DAYS: No - HPI Patient complains to provider of: Cough, Short of breath Onset: Yesterday Duration: Worse/persistent Quality of pain: Achy Severity: Moderate Pain Level: 3 Context: Hx COPD, Smoker Short of Breath: Moderate Chest pain/discomfort: Tightness Cough: Productive Sputum amount: Small Sputum color: Green Sputum consistency: Mucoid Associated symptoms: Congestion, Cough, Difficulty breathing Similar symptoms previously: Yes Recently seen / treated by doctor: Yes Notes: Patient is a 52-year-old male, who presents to the emergency room today complaining of cough with shortness of breath and chest tightness since 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, he is a smoker has a history of lung problems in the past, was seen in this emergency department approximately a month ago for similar symptoms which resolved after receiving some breathing treatments and steroids in the emergency room, he denies any fevers, no sick contacts - Related Data Allergies/Adverse Reactions: Penicillins Allergy (Intermediate, Verified 02/03/17 12:22) Hives ketorolac tromethamine [From Toradol] Adverse Reaction (Intermediate, Verified 02/03/17 12:22) headache Past Medical History - General Information source: Patient - Social History Smoking Status: Current Every Day Smoker Chew tobacco use (# tins/day): No Frequency of alcohol use: None Drug Abuse: None Family History: Reviewed & Not Pertinent, Arthritis, CAD, CVA, DM, Hyperlipidemia, Hypertension, Malignancy - Past Medical History Cardiac Medical History: Reports: Hx Hypertension - Non-compliant with meds Denies: Hx Congestive Heart Failure, Hx Heart Attack Pulmonary Medical History: Reports: Hx Bronchitis, Hx COPD, Hx Pneumonia Denies: Hx Asthma, Hx Tuberculosis Neurological Medical History: Denies: Hx Seizures Renal/ Medical History: Denies: Hx Benign Prostatic Hyperplasia, Hx End Stage Renal Disease, Hx Peritoneal Dialysis GI Medical History: Denies: Hx Cirrhosis, Hx Gastroesophageal Reflux Disease, Hx Ulcer Musculoskeltal Medical History: Reports Hx Arthritis, Denies Hx Multiple Sclerosis, Reports Hx Musculoskeletal Deformity, Reports Hx Musculoskeletal Trauma Psychiatric Medical History: Denies: Hx Bipolar Disorder, Hx Depression, Hx Schizophrenia Traumatic Medical History: Reports: Hx Fractures, Hx Traumatic Brain Injury Past Surgical History: Reports: Hx Abdominal Surgery - pyloric stenosis, rt. ing. jasmeet., Hx Neurologic Surgery - brain injury surgery, Hx Orthopedic Surgery - rt wrist tendon repair, Other - What sounds like a chest tube placement in the remote past. - Immunizations Immunizations up to date: Yes Hx Diphtheria, Pertussis, Tetanus Vaccination: Yes Review of Systems - Review of Systems Constitutional: No symptoms reported EENT: No symptoms reported Cardiovascular: No symptoms reported Respiratory: See HPI Gastrointestinal: No symptoms reported Genitourinary: No symptoms reported Male Genitourinary: No symptoms reported Musculoskeletal: No symptoms reported Skin: No symptoms reported Hematologic/Lymphatic: No symptoms reported Neurological/Psychological: No symptoms reported -: Yes All other systems reviewed and negative Physical Exam - Vital signs Vitals: Temp Pulse Resp BP Pulse Ox 97.4 F 110 H 20 146/100 H 98 02/03/17 12:22 02/03/17 12:22 02/03/17 12:22 02/03/17 12:22 02/03/17 12:22 Interpretation: Normal - General General appearance: Appears well, Alert - HEENT Head: Normocephalic, Atraumatic Eyes: Normal Pupils: PERRL - Respiratory Respiratory status: No respiratory distress Chest status: Tender - Tender to palpate bilateral rib cage Breath sounds: Nonproductive cough, Wheezing Chest palpation: Normal - Cardiovascular Rhythm: Regular Heart sounds: Normal auscultation Murmur: No - Abdominal Inspection: Normal Distension: No distension Bowel sounds: Normal Tenderness: Nontender Organomegaly: No organomegaly - Back Back: Normal, Nontender - Extremities General upper extremity: Normal inspection, Nontender, Normal color, Normal ROM , Normal temperature General lower extremity: Normal inspection, Nontender, Normal color, Normal ROM , Normal temperature, Normal weight bearing. No: Jeff's sign - Neurological Neuro grossly intact: Yes Cognition: Normal Orientation: AAOx4 [place] Coma Scale Eye Opening: Spontaneous [place] Coma Scale Verbal: Oriented [place] Coma Scale Motor: Obeys Commands [place] Coma Scale Total: 15 Speech: Normal Motor strength normal: LUE, RUE, LLE, RLE Sensory: Normal - Psychological Associated symptoms: Normal affect, Normal mood - Skin Skin Temperature: Warm Skin Moisture: Dry Skin Color: Normal Course - Re-evaluation Re-evalutation: 02/03/17 14:06 Patient's lungs are clear to auscultation, chest x-ray was discussed with him at bedside which is unremarkable, symptoms consistent with COPD exacerbation, smoking cessation was briefly discussed, patient will be discharged with prescriptions for symptom relief, advised to return if any additional concerns, patient acknowledges understanding and agreement with this - Vital Signs Vital signs: Temp Pulse Resp BP Pulse Ox 97.4 F 110 H 20 146/100 H 98 02/03/17 12:22 02/03/17 12:22 02/03/17 12:22 02/03/17 12:22 02/03/17 12:22 - Diagnostic Test Radiology reviewed: Image reviewed, Reports reviewed Discharge - Discharge Clinical Impression: COPD exacerbation Condition: Stable Disposition: HOME, SELF-CARE Instructions: Chronic Obstructive Lung Disease ([facility]), Stop Smoking ([facility]) Additional Instructions: Follow up with your primary care provider in one to 2 days. Return to the emergency room immediately if symptoms worsen or any additional concerns. Prescriptions: Albuterol Sulfate [Proair HFA Inhalation Aerosol 8.5 gm MDI] 1 puff IH Q4 PRN # 1 mdi PRN Reason: Codeine/Promethazine HCl [Promethazine-Codeine Syrup] 5 ml PO Q6 PRN #120 ml PRN Reason: Cough Prednisone 40 mg PO DAILY #8 tablet
--- NOTE | 2017-02-03 13:20 | RADIOLOGY REPORT (SQ) ---
EXAM DESCRIPTION: CHEST PA/LAT COMPLETED DATE/TIME: 02/03/2017 1:04 pm REASON FOR STUDY: db COMPARISON: Chest film 01/03/2017, 10/08/2016, 05/18/2016 EXAM PARAMETERS: NUMBER OF VIEWS: two views TECHNIQUE: Digital Frontal and Lateral radiographic views of the chest acquired. RADIATION DOSE: NA LIMITATIONS: none FINDINGS: LUNGS AND PLEURA: No opacities, masses or pneumothorax. No pleural effusion. MEDIASTINUM AND HILAR STRUCTURES: No masses or contour abnormalities. HEART AND VASCULAR STRUCTURES: Heart normal size. No evidence for failure. BONES: No acute findings. HARDWARE: None in the chest. OTHER: No other significant finding. IMPRESSION: NO SIGNIFICANT RADIOGRAPHIC FINDING IN THE CHEST. TECHNICAL DOCUMENTATION: JOB ID: [id number] All Rights Reserved
[2017-02-03] MEDS ORDERED: OXYCODONE-ACETAMINOPHEN 5-325 MG TABLET PO ONE (13:26)
[2017-02-03 14:17] VITALS: BP 139/99
== END 2017-02-03 14:10 | disposition home or self-care (01) ==
LOC: ER 12:18
DX: J44.1 Chronic obstructive pulmonary disease with (acute) exacerbation (principal); R05 Cough; R06.02 Shortness of breath; R07.89 Other chest pain; I10 Essential (primary) hypertension; F17.200 Nicotine dependence, unspecified, uncomplicated; Z87.01 Personal history of pneumonia (recurrent)
CPT/HCPCS: 94640 ×2; 99285; 71020; J7512; J7620

== ENCOUNTER 2017-02-07 09:26 | Emergency (ER) | payer OTHER ==
[2017-02-07] MEDS ORDERED: ASPIRIN 81 MG TABLET, CHEWABLE PO ONE (09:49)
[2017-02-07] MEDS ORDERED: NITROGLYCERIN 0.4 MG/TAB 25 TAB/BOTTLE SL PRN (09:50)
[2017-02-07] MEDS ORDERED: METHOCARBAMOL 750 MG TABLET PO ONE (09:50)
[2017-02-07] MEDS ORDERED: DEXAMETHASONE SOD PHOS INJ 10 MG/1 ML VIAL IM ONE (09:50)
[2017-02-07] MEDS ORDERED: BENZONATATE 100 MG CAPSULE PO ONE (09:51)
[2017-02-07] MEDS ORDERED: ALBUTEROL SULFATE 0.083% NEB 2.5 MG/3 ML AMPUL NEB ONE (09:53)
[2017-02-07] MEDS ORDERED: IPRATROPIUM/ALBUTEROL 0.5-2.5 MG/3 ML AMPUL NEB ONE ×3 (09:53→10:23)
--- NOTE | 2017-02-07 10:00 | ER Document Report ---
ED Medical Screen (RME) - General Mode of Arrival: Ambulatory Information source: Patient TRAVEL OUTSIDE OF THE [place] IN LAST 30 DAYS: No - General Chief Complaint: Cough Stated Complaint: COUGH CHEST PAIN Time Seen by Provider: 02/07/17 09:40 Notes: Patient is a 52 year old male presenting to the emergency department for cough and chest pain. 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 Patient states he believes he inhaled a lot of dust and particles from working in these houses. Patient states he has had productive cough and congestion x4 days and he has left sided chest pain onset last night. Patient states he was here recently (4 days ago) for similar complaints and he got breathing treatments, steroids, and cough syrup; patient states he did fill all the prescriptions and has been taking them. Patient states he is concerned about his heart and he has a strong family history of CAD including his dad dying of an MD in his 50s. Patient states his "heart hurts " and he clutches his left chest. Patient also had a prior surgery on his right lung for infection so he states his right lung is smaller than the left. Patient is also a smoker and he does not take any daily allergy medications. ( KATHRINE BOYKIN) - Related Data Allergies/Adverse Reactions: Penicillins Allergy (Intermediate, Verified 02/07/17 09:33) Hives ketorolac tromethamine [From Toradol] Adverse Reaction (Intermediate, Verified 02/07/17 09:33) headache Past Medical History - Social History Chew tobacco use (# tins/day): No Frequency of alcohol use: None Drug Abuse: None - Past Medical History Cardiac Medical History: Reports: Hx Hypertension - Non-compliant with meds Denies: Hx Congestive Heart Failure, Hx Heart Attack Pulmonary Medical History: Reports: Hx Bronchitis, Hx COPD, Hx Pneumonia Denies: Hx Asthma, Hx Tuberculosis Neurological Medical History: Denies: Hx Seizures Renal/ Medical History: Denies: Hx Benign Prostatic Hyperplasia, Hx End Stage Renal Disease, Hx Peritoneal Dialysis GI Medical History: Denies: Hx Cirrhosis, Hx Gastroesophageal Reflux Disease, Hx Ulcer Musculoskeltal Medical History: Reports Hx Arthritis, Denies Hx Multiple Sclerosis, Reports Hx Musculoskeletal Deformity, Reports Hx Musculoskeletal Trauma Psychiatric Medical History: Denies: Hx Bipolar Disorder, Hx Depression, Hx Schizophrenia Traumatic Medical History: Reports: Hx Fractures, Hx Traumatic Brain Injury Past Surgical History: Reports: Hx Abdominal Surgery - pyloric stenosis, rt. ing. jasmeet., Hx Neurologic Surgery - brain injury surgery, Hx Orthopedic Surgery - rt wrist tendon repair, Other - What sounds like a chest tube placement in the remote past. - Immunizations Immunizations up to date: Yes Hx Diphtheria, Pertussis, Tetanus Vaccination: Yes Physical Exam - Vital signs Vitals: Temp Pulse Resp BP Pulse Ox 98.2 F 91 20 181/111 H 97 02/07/17 09:33 02/07/17 09:33 02/07/17 09:33 02/07/17 09:33 02/07/17 09:33 - Notes Notes: GENERAL: Alert and oriented. Pleasant. RESPIRATORY: diffuse expiratory wheezing, dry cough, appears moderately short of breath. HEART: Regular rate and rhythm. No murmurs, gallops or rubs. (KATHRINE BOYKIN) Course - Re-evaluation Re-evalutation: 02/07/17 10:16 Patient will have chest pain work-up initiated given his risk factors and the recent change in his symptoms, patient will also be transferred to the main side of the emergency department for the conclusion of his workup. Muscle relaxer given for the pain he is having in his lower chest around his rib cage that is likely coming from pain from coughing. (TIARA KHAN) - Vital Signs Vital signs: Temp Pulse Resp BP Pulse Ox 98.2 F 91 20 181/111 H 97 02/07/17 09:33 02/07/17 09:33 02/07/17 09:33 02/07/17 09:33 02/07/17 09:33 Scribe Documentation - Scribe Written by Scribe:: Benito Diehl 02/07/17 10:00 acting as scribe for DrAvelino:: Ary
--- NOTE | 2017-02-07 10:13 | ER Document Report ---
ED General - General Chief Complaint: Cough Stated Complaint: COUGH, CHEST PAIN Time Seen by Provider: 02/07/17 09:40 Mode of Arrival: Ambulatory Information source: Patient Notes: 52-year-old male who has been seen here multiple times for respiratory concerns presents again with complaints of shortness of breath cough since he started working in the room that had a lot of mold and dust. Patient notes he was seen by myself approximately a month ago and felt much better afterwards, but then irritated his lungs again over the past few days. Patient denies any fevers or chills notes he is having chest wall pain back pain abdominal pain from all the coughing. Patient denies any specific chest pain when he is not coughing TRAVEL OUTSIDE OF THE [place] IN LAST 30 DAYS: No - HPI Onset: Last week Onset/Duration: Persistent Quality of pain: Achy Severity: Moderate Pain Level: 3 Associated symptoms: Body/muscle aches, Chest pain, Nonproductive cough, Shortness of breath Exacerbated by: Walking, Coughing Relieved by: Denies Similar symptoms previously: Yes Recently seen / treated by doctor: Yes - Related Data Allergies/Adverse Reactions: Penicillins Allergy (Intermediate, Verified 02/07/17 09:33) Hives ketorolac tromethamine [From Toradol] Adverse Reaction (Intermediate, Verified 02/07/17 09:33) headache Past Medical History - General Information source: Patient - Social History Smoking Status: Current Every Day Smoker Cigarette use (# per day): Yes Chew tobacco use (# tins/day): No Smoking Education Provided: Yes - Patient counselled regarding cessation for 4 minutes Frequency of alcohol use: None Drug Abuse: None Family History: Reviewed & Not Pertinent, Arthritis, CAD, CVA, DM, Hyperlipidemia, Hypertension, Malignancy - Past Medical History Cardiac Medical History: Reports: Hx Hypertension - Non-compliant with meds Denies: Hx Congestive Heart Failure, Hx Heart Attack Pulmonary Medical History: Reports: Hx Bronchitis, Hx COPD, Hx Pneumonia Denies: Hx Asthma, Hx Tuberculosis Neurological Medical History: Denies: Hx Seizures Renal/ Medical History: Denies: Hx Benign Prostatic Hyperplasia, Hx End Stage Renal Disease, Hx Peritoneal Dialysis GI Medical History: Denies: Hx Cirrhosis, Hx Gastroesophageal Reflux Disease, Hx Ulcer Musculoskeltal Medical History: Reports Hx Arthritis, Denies Hx Multiple Sclerosis, Reports Hx Musculoskeletal Deformity, Reports Hx Musculoskeletal Trauma Psychiatric Medical History: Denies: Hx Bipolar Disorder, Hx Depression, Hx Schizophrenia Traumatic Medical History: Reports: Hx Fractures, Hx Traumatic Brain Injury Past Surgical History: Reports: Hx Abdominal Surgery - pyloric stenosis, rt. ing. jasmeet., Hx Neurologic Surgery - brain injury surgery, Hx Orthopedic Surgery - rt wrist tendon repair, Other - What sounds like a chest tube placement in the remote past. - Immunizations Immunizations up to date: Yes Hx Diphtheria, Pertussis, Tetanus Vaccination: Yes Review of Systems - Review of Systems Notes: REVIEW OF SYSTEMS: CONSTITUTIONAL : Denies fever, chills, or sweats. Denies recent illness. EENT: Denies eye, ear, throat, or mouth pain or symptoms. Denies nasal or sinus congestion or discharge. Denies throat, tongue, or mouth swelling or difficulty swallowing. CARDIOVASCULAR: Admits to chest wall pain RESPIRATORY: Admits to productive cough GASTROINTESTINAL: Admits to abdominal wall pain GENITOURINARY: Denies difficulty urinating, painful urination, burning, frequency, blood in urine, or discharge. MUSCULOSKELETAL: Admits to back pain SKIN: Denies rash, lesions or sores. HEMATOLOGIC : Denies easy bruising or bleeding. LYMPHATIC: Denies swollen, enlarged glands. NEUROLOGICAL: Denies confusion or altered mental status. Denies passing out or loss of consciousness. Denies dizziness or lightheadedness. Denies headache. Denies weakness or paralysis or loss of use of either side. Denies problems with gait or speech. Denies sensory loss, numbness, or tingling. Denies seizures. PSYCHIATRIC: Denies anxiety or stress. Denies depression, suicidal ideation, or homicidal ideation. ALL OTHER SYSTEMS REVIEWED AND NEGATIVE. Dictation was performed using [employer] voice recognition software PHYSICAL EXAMINATION: GENERAL: Well-appearing, well-nourished and in no acute distress. HEAD: Atraumatic, normocephalic. EYES: Pupils equal round and reactive to light, extraocular movements intact, sclera anicteric, conjunctiva are normal. ENT: Nares patent, oropharynx clear without exudates. Moist mucous membranes. NECK: Normal range of motion, supple without lymphadenopathy LUNGS: Coarse wheezing inspiratory and expiratory all throughout HEART: Regular rate and rhythm without murmurs, tenderness on palpation of the rib spacing ABDOMEN: Soft, tender on palpation of the abdomen, nondistended abdomen. No guarding, no rebound. No masses appreciated. Musculoskeletal: Normal range of motion, no pitting or edema. No cyanosis. Tenderness on palpation of the back generalized no midline tenderness NEUROLOGICAL: Cranial nerves grossly intact. Normal speech, normal gait. Normal sensory, motor exams PSYCH: Normal mood, normal affect. SKIN: Warm, Dry, normal turgor, no rashes or lesions noted. Physical Exam - Vital signs Vitals: Temp Pulse Resp BP Pulse Ox 98.2 F 91 20 181/111 H 97 02/07/17 09:33 02/07/17 09:33 02/07/17 09:33 02/07/17 09:33 02/07/17 09:33 Course - Re-evaluation Re-evalutation: 02/07/17 10:27 Patient's presentation is completely respiratory in nature, he is wheezing, will be treated with breathing treatments has already received steroids. Patient was given aspirin nitroglycerin by triage physician notes no improvement of symptoms 02/07/17 11:57 Patient's workup was negative, he notes significant improvement after breathing treatments. He has chronic pain for which she has been treated for as well. Patient will be given follow-up with primary care physician After performing a Medical Screening Examination, I estimate there is LOW risk for ACUTE CORONARY SYNDROME, RESPIRATORY FAILURE, SEPSIS OR MENINGITIS, thus I consider the discharge disposition reasonable. I have reevaluated this patient multiple times and no significant life threatening changes are noted. The patient and I have discussed the diagnosis and risks, and we agree with discharging home with close follow-up. We also discussed returning to the Emergency Department immediately if new or worsening symptoms occur. We have discussed the symptoms which are most concerning (e.g., changing or worsening pain, trouble swallowing or breathing, neck stiffness, fever) that necessitate immediate return. - Vital Signs Vital signs: Temp Pulse Resp BP Pulse Ox 98.2 F 91 20 181/111 H 97 02/07/17 09:33 02/07/17 09:33 02/07/17 09:33 02/07/17 09:33 02/07/17 10:36 - Laboratory Result Diagrams: 02/07/17 10:35 02/07/17 10:35 Laboratory results interpreted by me: 02/07/17 10:35 BUN 22 H - Diagnostic Test Radiology reviewed: Image reviewed, Reports reviewed - No acute abnormality Discharge - Discharge Clinical Impression: COPD exacerbation, Encounter for smoking cessation counseling Condition: Stable Disposition: HOME, SELF-CARE Instructions: Chronic Obstructive Lung Disease ([facility]) Additional Instructions: Follow up with your physician tomorrow for further care or return to the ED IMMEDIATELY if symptoms worsen or new concerns occur. If you cannot afford to follow up with your primary care physician a list of low cost clinics have been provided at the end of your discharge papers as well. Prescriptions: Oxycodone HCl/Acetaminophen [Percocet 5-325 mg Tablet] 1 - 2 tab PO Q4H PRN #15 tablet PRN Reason: Prednisone [Deltasone 20 mg Tablet] 3 tab PO DAILY 5 Days tablet Forms: Smoking Cessation Education
[2017-02-07] MEDS ORDERED: HYDROMORPHONE HCL INJ/PF 2 MG/ML AMPULE IV ONE (10:22)
[2017-02-07 10:50] LABS: ABSOLUTE LYMPHOCYTES (AUTO) 2.3 10^3/uL (0.5-4.7); ABSOLUTE MONOCYTES (AUTO) 0.9 10^3/uL (0.1-1.4); ABSOLUTE NEUT (AUTO) 5.7 10^3/uL (1.7-8.2); BASOPHILS % (AUTO) 0.5 % (0-2); EOSINOPHILS % (AUTO) 0.3 % (0-6); HEMATOCRIT 42.5 % (37.9-51.0); HEMOGLOBIN 14.6 g/dL (13.5-17.0); HGB HCT DIFFERENCE 1.3; LYMPHOCYTES % (AUTO) 25.8 % (13-45); MEAN CORPUSCULAR HEMOGLOBIN 30.8 pg (27.0-33.4); MEAN CORPUSCULAR HGB CONC 34.2 g/dL (32.0-36.0); MEAN CORPUSCULAR VOLUME 90 fl (80-97); MONOCYTES % (AUTO) 9.8 % (3-13); RED BLOOD COUNT 4.73 10^6/uL (4.35-5.55); RED CELL DISTRIBUTION WIDTH 13.5 % (11.5-14.0); SEGMENTED NEUTROPHILS % (AUTO) 63.6 % (42-78)
--- NOTE | 2017-02-07 10:59 | RADIOLOGY REPORT (SQ) ---
EXAM DESCRIPTION: CHEST SINGLE VIEW COMPLETED DATE/TIME: 02/07/2017 10:48 am REASON FOR STUDY: cough, SOB, chest pain COMPARISON: 02/03/2017 EXAM PARAMETERS: NUMBER OF VIEWS: One view. TECHNIQUE: Single frontal radiographic view of the chest acquired. RADIATION DOSE: NA LIMITATIONS: None. FINDINGS: LUNGS AND PLEURA: No opacities, masses or pneumothorax. No pleural effusion. MEDIASTINUM AND HILAR STRUCTURES: No masses. Contour normal. HEART AND VASCULAR STRUCTURES: Heart normal in size. Normal vasculature. BONES: No acute findings. HARDWARE: None in the chest. OTHER: No other significant finding. IMPRESSION: NO ACUTE RADIOGRAPHIC FINDING IN THE CHEST. TECHNICAL DOCUMENTATION: JOB ID: [id number]
[2017-02-07 11:07] LABS: ALANINE AMINOTRANSFERASE 62 U/L (21-72); ALBUMIN 4.1 g/dL (3.5-5.0); ALKALINE PHOSPHATASE 60 U/L (38-126); ANION GAP 11 (5-19); ASPARTATE AMINO TRANSFERASE 31 U/L (17-59); BILIRUBIN,DIRECT 0.3 mg/dL (0.0-0.4); BILIRUBIN,TOTAL 0.4 mg/dL (0.2-1.3); BLOOD UREA NITROGEN 22 mg/dL (7-20); CALCIUM 9.6 mg/dL (8.4-10.2); CARBON DIOXIDE 27 mmol/L (22-30); CHLORIDE 103 mmol/L (98-107); CREATINE KINASE 70 U/L (55-170); CREATININE RESULT 0.77 mg/dL (0.52-1.25); GLUCOSE 106 mg/dL (75-110); POTASSIUM 4.2 mmol/L (3.6-5.0); SODIUM 140.9 mmol/L (137-145); TOTAL PROTEIN 7.2 g/dL (6.3-8.2)
[2017-02-07] MEDS ORDERED: DIPHENHYDRAMINE HCL 50 MG/ML VIAL IV ONE (11:26)
[2017-02-07] MEDS ORDERED: HALOPERIDOL LACTATE INJ 5 MG/1 ML VIAL IV ONE (11:26)
[2017-02-07 11:29] LABS: CREATINE KINASE MB 1.27 ng/mL (<4.55)
[2017-02-07 11:31] LABS: TROPONIN I < 0.012 ng/mL
[2017-02-07] MEDS ORDERED: HYDROCODONE/ACETAMINOPHEN 5-325 MG 6 TAB/DSPK PO PRN (12:29)
[2017-02-07 12:34] VITALS: BP 147/93
--- NOTE | 2017-02-07 16:54 | EKG REPORT ---
SEVERITY:- BORDERLINE ECG - SINUS RHYTHM PROBABLE LEFT ATRIAL ABNORMALITY : Confirmed by: Pily Diaz MD 07-Feb-2017 16:53:29
== END 2017-02-07 12:20 | disposition home or self-care (01) ==
LOC: ER 09:26
DX: J44.1 Chronic obstructive pulmonary disease with (acute) exacerbation (principal); R07.9 Chest pain, unspecified; M54.9 Dorsalgia, unspecified; F17.210 Nicotine dependence, cigarettes, uncomplicated; I10 Essential (primary) hypertension; Z88.0 Allergy status to penicillin
CPT/HCPCS: 93005; 99406; 94640 ×2; 99284; 96372; 96374; 96375; 36415; 82553; 82550; 85025; 80053; 84484; 71010; 93010; J1200; J1630; J3490; J1170; J1100; J7620

== ENCOUNTER 2017-02-22 09:27 | Emergency (ER) | payer OTHER ==
[2017-02-22 09:59] VITALS: BP 124/89
[2017-02-22] MEDS ORDERED: ASPIRIN 81 MG TABLET, CHEWABLE PO ONE (10:23)
[2017-02-22] MEDS ORDERED: IPRATROPIUM/ALBUTEROL 0.5-2.5 MG/3 ML AMPUL NEB ONE (10:48)
--- NOTE | 2017-02-22 10:48 | ER Document Report ---
ED Cardiac - General Chief Complaint: Chest Pain Stated Complaint: CHEST PAIN Time Seen by Provider: 02/22/17 10:32 Mode of Arrival: Ambulatory Information source: Patient Notes: 52 yo smoker, HTN, COPD, non hyperlipedemic, non DM male with left sided chest pain and coughing all night for 2 days, sharp, worse with inhalation, lower/ later rib cage hurts, coughing a lot/all night. FamHx: CAD age 50, mom stroke. 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 Respiratory issues since then. Inhaler at home, helps some. TRAVEL OUTSIDE OF THE [place] IN LAST 30 DAYS: No - Related Data Allergies/Adverse Reactions: Penicillins Allergy (Intermediate, Verified 02/07/17 09:33) Hives ketorolac tromethamine [From Toradol] Adverse Reaction (Intermediate, Verified 02/07/17 09:33) headache Past Medical History - General Information source: Patient - Social History Smoking Status: Current Every Day Smoker Frequency of alcohol use: Occasional Drug Abuse: None Lives with: Spouse/Significant other Family History: Reviewed & Not Pertinent, Arthritis, CAD, CVA, DM, Hyperlipidemia, Hypertension, Malignancy Patient has suicidal ideation: No Patient has homicidal ideation: No - Past Medical History Cardiac Medical History: Reports: Hx Hypertension - Non-compliant with meds Denies: Hx Coronary Artery Disease, Hx Hypercholesterolemia Pulmonary Medical History: Reports: Hx Bronchitis, Hx COPD, Hx Pneumonia Musculoskeltal Medical History: Reports Hx Arthritis, Reports Hx Musculoskeletal Deformity, Reports Hx Musculoskeletal Trauma Traumatic Medical History: Reports: Hx Fractures, Hx Traumatic Brain Injury Past Surgical History: Reports: Hx Abdominal Surgery - pyloric stenosis, rt. ing. jasmeet., Hx Neurologic Surgery - brain injury surgery, Hx Orthopedic Surgery - rt wrist tendon repair, Other - What sounds like a chest tube placement in the remote past. - Immunizations Immunizations up to date: Yes Hx Diphtheria, Pertussis, Tetanus Vaccination: Yes Review of Systems - Review of Systems Constitutional: No symptoms reported EENT: No symptoms reported Cardiovascular: See HPI Respiratory: See HPI Gastrointestinal: No symptoms reported Genitourinary: No symptoms reported Male Genitourinary: No symptoms reported Musculoskeletal: No symptoms reported Skin: No symptoms reported Hematologic/Lymphatic: No symptoms reported Neurological/Psychological: No symptoms reported Physical Exam - Vital signs Vitals: Temp Pulse Resp BP Pulse Ox 99.6 F 55 L 20 124/89 H 97 02/22/17 09:55 02/22/17 09:55 02/22/17 09:55 02/22/17 09:55 02/22/17 09:55 Interpretation: Normal - General General appearance: Appears well, Alert In distress: None - HEENT Head: Normocephalic, Atraumatic Eyes: Normal Conjunctiva: Normal Pupils: PERRL Mucous membranes: Normal Pharynx: Erythema Neck: Supple. No: Lymphadenopathy - Respiratory Respiratory status: No respiratory distress Chest status: Tender - lateral left lower ribs/chest wall Breath sounds: Normal, Wheezing - scattered. No: Rales, Rhonchi Chest palpation: Normal - Cardiovascular Rhythm: Regular Heart sounds: Normal auscultation Murmur: No - Abdominal Inspection: Normal Distension: No distension Bowel sounds: Normal Tenderness: Nontender. No: Tender Organomegaly: No organomegaly - Back Back: Normal, Nontender. No: CVA tenderness - Extremities General upper extremity: Normal inspection, Nontender, Normal color, Normal ROM , Normal temperature General lower extremity: Normal inspection, Nontender, Normal color, Normal ROM , Normal temperature, Normal weight bearing. No: Jeff's sign - Neurological Neuro grossly intact: Yes Cognition: Normal Orientation: AAOx4 Bekah Coma Scale Eye Opening: Spontaneous [place] Coma Scale Verbal: Oriented [place]ek[place] Coma Scale Motor: Obeys Commands Bek[place] Coma Scale Total: 15 Speech: Normal Motor strength normal: LUE, RUE, LLE, RLE Sensory: Normal - Psychological Associated symptoms: Normal affect, Normal mood - Skin Skin Temperature: Warm Skin Moisture: Dry Skin Color: Normal Course - Re-evaluation Re-evalutation: 02/22/17 14:05 pt agitated stating that the Percocet 10 mg did not relieve the pain enough in his left mid thoracic back which is tender. Because of his amount of pain and now he is clammy I have ordered morphine but also a CTA to look for PE and also the aorta. He now tells me that he backed into a metal brace that was underneath the house 10 days ago and thinks that might of caused the pain. Chest x-ray is negative. First troponin is negative. Also added a urinalysis and a urine drug screen. EKG ST, no acute change, minimal ST depression, inferior leads. 10/23/17 16:[address] hicks, [facility] to go home, tx copd, referral for stress test. 02/22/17 16:16 Patient is asking for dispensed pack a pain medicine because I do not have any money, the nebulizer helped with the breathing issue, will start on prednisone. 02/22/17 16:19 ekg at this time is rate 74, NSR. 02/22/17 16:52 repeat ekg read by dr hicks as well, no acute change, p wave inversion lead 3. no st depression. Pt can still be discharged home. - Vital Signs Vital signs: Temp Pulse Resp BP Pulse Ox 99.6 F 55 L 20 124/89 H 97 02/22/17 09:55 02/22/17 09:55 02/22/17 09:55 02/22/17 09:55 02/22/17 09:55 - Laboratory Result Diagrams: 02/22/17 11:51 02/22/17 11:51 Laboratory results interpreted by me: 02/22/17 02/22/17 02/22/17 11:51 11:51 12:52 Band Neutrophils % 1 L Monocytes % (Manual) 20 H Chloride 108 H Carbon Dioxide 20 L BUN 22 H ALT 85 H Total Protein 8.3 H Urine Protein 30 H Urine Glucose (UA) 150 H Urine Ketones TRACE H Discharge - Discharge Clinical Impression: chest pain Left-sided thoracic back pain Qualifiers: Chronicity: acute Qualified Code(s): M54.6 - Pain in thoracic spine COPD (chronic obstructive pulmonary disease) Qualifiers: COPD type: unspecified COPD Qualified Code(s): J44.9 - Chronic obstructive pulmonary disease, unspecified Condition: Good Disposition: HOME, SELF-CARE Instructions: Acetaminophen, Aspirin (Cardiac) ([facility]), Chronic Obstructive Lung Disease ([facility]), Chest Pain of Unclear Cause ([facility]), Stop Smoking ([facility]), Steroid Medication, Upper Back Strain ([facility]) Additional Instructions: warm compress to sore areas stop smoking to er if worse schedule appointment with audio visual technician, numbers given to you, to schedule stress test, dr. griffin copy of labwork, imaging and ekg given to you see sanforizing machine operator about your COPD, dr. mcnamara Please complete the patient satisfaction survey if you get one, and return it.. If you do not receive a survey, then you can go to the [facility] website, [email or web address] and place your comments about your very good care. Thank you very much. It was a pleasure being your medical provider today. Prescriptions: Prednisone [Deltasone 10 mg Tablet] 10 mg PO ASDIR PRN #21 tablet PRN Reason: Forms: Smoking Cessation Education Referrals: AMARJIT ESCALANTE MD [ACTIVE STAFF] - Follow up tomorrow KARIN MCNAMARA MD [ACTIVE STAFF] - Follow up as needed
--- NOTE | 2017-02-22 11:11 | RADIOLOGY REPORT (SQ) ---
EXAM DESCRIPTION: CHEST SINGLE VIEW COMPLETED DATE/TIME: 02/22/2017 10:45 am REASON FOR STUDY: cp COMPARISON: Chest films 02/07/2017, 02/03/2017, 10/08/2016 EXAM PARAMETERS: NUMBER OF VIEWS: One view. TECHNIQUE: Single frontal radiographic view of the chest acquired. RADIATION DOSE: NA LIMITATIONS: None. FINDINGS: LUNGS AND PLEURA: No opacities, masses or pneumothorax. No pleural effusion. MEDIASTINUM AND HILAR STRUCTURES: No masses. Contour normal. HEART AND VASCULAR STRUCTURES: Heart normal in size. Normal vasculature. BONES: No acute findings. HARDWARE: None in the chest. OTHER: No other significant finding. IMPRESSION: NO ACUTE RADIOGRAPHIC FINDING IN THE CHEST. TECHNICAL DOCUMENTATION: JOB ID: [id number]
[2017-02-22] MEDS ORDERED: OXYCODONE-ACETAMINOPHEN 5-325 MG TABLET PO ONE (11:13)
[2017-02-22 12:24] LABS: ALANINE AMINOTRANSFERASE 85 U/L (21-72); ALBUMIN 4.8 g/dL (3.5-5.0); ALKALINE PHOSPHATASE 84 U/L (38-126); ANION GAP 16 (5-19); ASPARTATE AMINO TRANSFERASE 56 U/L (17-59); BILIRUBIN,DIRECT 0.3 mg/dL (0.0-0.4); BILIRUBIN,TOTAL 0.3 mg/dL (0.2-1.3); BLOOD UREA NITROGEN 22 mg/dL (7-20); CALCIUM 9.6 mg/dL (8.4-10.2); CARBON DIOXIDE 20 mmol/L (22-30); CHLORIDE 108 mmol/L (98-107); CREATINE KINASE 162 U/L (55-170); CREATININE RESULT 0.88 mg/dL (0.52-1.25); GLUCOSE 107 mg/dL (75-110); POTASSIUM 4.7 mmol/L (3.6-5.0); SODIUM 144.2 mmol/L (137-145); TOTAL PROTEIN 8.3 g/dL (6.3-8.2)
[2017-02-22 12:25] LABS: HEMATOCRIT 48.2 % (37.9-51.0); HEMOGLOBIN 16.9 g/dL (13.5-17.0); HGB HCT DIFFERENCE 2.5; MEAN CORPUSCULAR VOLUME 89 fl (80-97); RED BLOOD COUNT 5.45 10^6/uL (4.35-5.55); RED CELL DISTRIBUTION WIDTH 13.4 % (11.5-14.0); WHITE BLOOD COUNT 6.1 10^3/uL (4.0-10.5)
[2017-02-22 12:34] LABS: CREATINE KINASE MB 1.51 ng/mL (<4.55)
[2017-02-22 12:35] LABS: TROPONIN I < 0.012 ng/mL
[2017-02-22 12:59] LABS: BAND NEUTROPHILS % (MANUAL) 1 % (3-5); BASOPHILS % (MANUAL) 0 % (0-2); EOSINOPHILS % (MANUAL) 0 % (0-6); LYMPHOCYTES % (MANUAL) 27 % (13-45); TOTAL CELLS COUNTED 100
[2017-02-22 13:00] LABS: RBC MORPHOLOGY COMMENT NORMO-CYTIC/CHROMIC
[2017-02-22] MEDS ORDERED: NITROGLYCERIN 0.4 MG/TAB 25 TAB/BOTTLE SL ONE (13:39)
[2017-02-22] MEDS ORDERED: MORPHINE SULFATE 10 MG/ML INJ IV ONE (13:47)
[2017-02-22] MEDS ORDERED: MORPHINE SULFATE 10 MG/ML INJ IM ONE (13:50)
[2017-02-22] MEDS ORDERED: DIPHENHYDRAMINE HCL 50 MG/ML VIAL IV ONE (14:16)
[2017-02-22] MEDS ORDERED: FAMOTIDINE INJ/PF 20 MG/2 ML SDV IV ONE (14:17)
--- NOTE | 2017-02-22 15:07 | RADIOLOGY REPORT (SQ) ---
EXAM DESCRIPTION: CTA CHEST COMPLETED DATE/TIME: 02/22/2017 2:51 pm REASON FOR STUDY: left thoracic back and chest pain COMPARISON: Chest film 02/22/2017, 02/07/2017 TECHNIQUE: CT scan of the chest performed using helical scanning technique with dynamic intravenous contrast injection. Images reviewed with lung, soft tissue and bone windows. Reconstructed coronal and sagittal MPR images reviewed. Additional 3 dimensional post-processing performed to develop Maximal Intensity Projection images ([place] P). All images stored on PACS. All CT scanners at this facility use dose modulation, iterative reconstruction, and/or weight based d osing when appropriate to reduce radiation dose to as low as reasonably achievable (ALARA). [facility]: Dose Right [facility]: CareDose [facility]: Dose Right [facility]: Teradose 4D [facility]: Buzzmove CONTRAST TYPE AND DOSE: contrast/concentration: Isovue 370.00 mg/ml; Total Contrast Delivered: 71.0 ml; Total Saline Delivered: 98.4 ml Contrast bolus optimized for the pulmonary arteries. Not diagnostic for the aorta. RENAL FUNCTION: Creatinine 0.88 RADIATION DOSE: Up-to-date CT equipment and radiation dose reduction techniques were employed. CTDIv ol: 15.2 - 19.8 mGy. DLP: 558 mGy-cm. . LIMITATIONS: None. FINDINGS: LUNGS AND PLEURA: No masses, infiltrates, pneumothorax. No pleural effusions, calcificati ons. AORTA AND GREAT VESSELS: No aneurysm. Contrast bolus not optimized for the aorta. HEART: No pericardial effusion. LAD coronary stent. Minimal left coronary calcifications. PULMONARY ARTERIES: No emboli visualized in the main pulmonary arteries or the segmental branches. HILAR AND MEDIASTINAL STRUCTURES: No identified masses or abnormal nodes. HARDWARE: None in the chest. UPPER ABDOMEN: Small hiatal hernia. Distal esophageal wall thickening, question esophagitis THYROID AND OTHER SOFT TISSUES: No masses. No adenopathy. BONES: No acute or significant finding. 3D MIPS: Confirm above findings. OTHER: No other significant finding. IMPRESSION: No CT angio evidence of acute pulmonary emboli. COMMENT: Quality ID # [id number]: Final reports with documentation of one or more dose reduction techniques (e.g., Automated exposure control, adjustment of the mA and/or kV according to patient size, use of iterative reconstruction technique) TECHNICAL DOCUMENTATION: JOB ID: [id number]- All Rights Reserved
[2017-02-22] MEDS ORDERED: PREDNISONE 20 MG TABLET PO ONE (16:12)
[2017-02-22] MEDS ORDERED: ALBUTEROL SULFATE HFA (90 MCG/PUFF) 8 GM MDI (1 MDI/ER DISP) IH PRN (16:17)
[2017-02-22] MEDS ORDERED: HYDROCODONE/ACETAMINOPHEN 5-325 MG 6 TAB/DSPK PO PRN (16:17)
[2017-02-22 16:26] LABS: AMORPHOUS SEDIMENT,URINE TRACE /HPF; APPEARANCE,URINE TURBID; BILIRUBIN,URINE NEGATIVE (NEGATIVE); GLUCOSE, URINE 150 mg/dL (NEGATIVE); KETONES,URINE TRACE mg/dL (NEGATIVE); LEUKOCYTE ESTERASE,URINE NEGATIVE (NEGATIVE); NITRITE,URINE NEGATIVE (NEGATIVE); PROTEIN,URINE 30 mg/dL (NEGATIVE); UROBILINOGEN,URINE NEGATIVE mg/dL (<2.0)
[2017-02-22 16:37] LABS: URINE BARBITURATES SCREEN NEGATIVE; URINE METHADONE SCREEN NEGATIVE; URINE OPIATES LOW NEGATIVE; URINE PHENCYCLIDINE SCREEN NEGATIVE
--- NOTE | 2017-02-22 19:09 | EKG REPORT ---
SEVERITY:- NORMAL ECG - SINUS RHYTHM : Confirmed by: Amber Singh 22-Feb-2017 19:08:41
--- NOTE | 2017-02-22 19:09 | EKG REPORT ---
SEVERITY:- ABNORMAL ECG - SINUS TACHYCARDIA BIATRIAL ABNORMALITIES MINIMAL ST DEPRESSION, INFERIOR LEADS : Confirmed by: Amber Singh 22-Feb-2017 19:08:48
== END 2017-02-22 16:30 | disposition home or self-care (01) ==
LOC: ER 09:27
DX: M54.6 Pain in thoracic spine (principal); R07.9 Chest pain, unspecified; J44.9 Chronic obstructive pulmonary disease, unspecified; F17.200 Nicotine dependence, unspecified, uncomplicated; I10 Essential (primary) hypertension; Z88.0 Allergy status to penicillin
CPT/HCPCS: 93005; 94640; 99285; 96374; 96375; 36415; 82553; 82550; 85025; 80053; 81001; 84484; 80307; 71010; 71275; 93010; J1200; J2270; J7512; S0028; J3490; J7620

== ENCOUNTER 2017-04-06 10:05 | Emergency (ER) | payer OTHER ==
[2017-04-06] MEDS ORDERED: KETOROLAC TROMETHAMINE 60 MG/2 ML SDV IM ONE (10:55)
[2017-04-06] MEDS ORDERED: PREDNISONE 20 MG TABLET PO ONE (10:55)
--- NOTE | 2017-04-06 10:57 | ER Document Report ---
ED General - General Chief Complaint: Back Pain Stated Complaint: BACK PAIN Notes: Patient presents with acute flare of chronic back pain right-sided "sciatica" which radiates down his butt to his leg. No numbness or tingling. Was lifting heavily last week. Has also had viral symptoms this week. He has never had surgery or an injection but was previously on pain management. His pain management doctor has retired and he has no pain medicine. He is asking for steroids and Toradol because that is what usually works. TRAVEL OUTSIDE OF THE [place] IN LAST 30 DAYS: No - Related Data Allergies/Adverse Reactions: Penicillins Allergy (Intermediate, Verified 02/07/17 09:33) Hives ketorolac tromethamine [From Toradol] Adverse Reaction (Intermediate, Verified 02/07/17 09:33) headache Past Medical History - Social History Smoking Status: Current Every Day Smoker Cigarette use (# per day): Yes Smoking Education Provided: Yes - The patient ED visit today was directly related to their abuse of tobacco. Family History: Reviewed & Not Pertinent, Arthritis, CAD, CVA, DM, Hyperlipidemia, Hypertension, Malignancy - Past Medical History Cardiac Medical History: Reports: Hx Hypertension - Non-compliant with meds Denies: Hx Congestive Heart Failure, Hx Coronary Artery Disease, Hx Heart Attack, Hx Hypercholesterolemia Pulmonary Medical History: Reports: Hx Bronchitis, Hx COPD, Hx Pneumonia Denies: Hx Asthma, Hx Tuberculosis Neurological Medical History: Denies: Hx Seizures Renal/ Medical History: Denies: Hx Benign Prostatic Hyperplasia, Hx End Stage Renal Disease, Hx Peritoneal Dialysis GI Medical History: Denies: Hx Cirrhosis, Hx Gastroesophageal Reflux Disease, Hx Ulcer Musculoskeltal Medical History: Reports Hx Arthritis, Denies Hx Multiple Sclerosis, Reports Hx Musculoskeletal Deformity, Reports Hx Musculoskeletal Trauma Psychiatric Medical History: Denies: Hx Bipolar Disorder, Hx Depression, Hx Schizophrenia Traumatic Medical History: Reports: Hx Fractures, Hx Traumatic Brain Injury Past Surgical History: Reports: Hx Abdominal Surgery - pyloric stenosis, rt. ing. jasmeet., Hx Neurologic Surgery - brain injury surgery, Hx Orthopedic Surgery - rt wrist tendon repair, Other - What sounds like a chest tube placement in the remote past. - Immunizations Immunizations up to date: Yes Hx Diphtheria, Pertussis, Tetanus Vaccination: Yes Review of Systems - Review of Systems Notes: REVIEW OF SYSTEMS GEN: Denies fever, chills, weight loss ENT: D cough and congestion EYES: Denies blurry vision, eye pain, discharge CV: Denies chest pain, palpitations, edema RESP: D no shortness of breath no wheezing g GI: Denies abdominal pain, nausea, vomiting, diarrhea MSK: Denies joint pain/swelling, edema, SKIN: Denies rash, skin lesions LYMPH: Denies swollen glands/lymph nodes NEURO: Denies headache, focal weakness or numbness, dizziness PSYCH: Denies depression, suicidal or homicidal ideation PHYSICAL EXAMINATION General: No acute distress, well-nourished Head: Atraumatic, normocephalic ENT: Mouth normal, oropharynx moist, no exudates or tonsillar enlargement Eyes: Conjunctiva normal, pupils equal, lids normal Neck: No JVD, supple, no guarding CVS: Normal rate, regular rhythm, no murmurs Resp: No resp distress, equal and normal breath sounds bilaterally GI: Nondistended, soft, no tenderness to palpation, no rebound or guarding Ext: No deformities, no edema, normal range of motion in upper and lower ext. Negative straight leg raise. Back: No CVA or midline TTP Skin: No rash, warm Lymphatic: No lymphadeopathy noted Neuro: Awake, alert. Face symmetric. GCS 15. Sensation both feet. Course - Re-evaluation Re-evalutation: 04/06/17 11:01 Acute flare of chronic sciatica pain without neurologic deficits, injection drug use, fever or red flags for cord compression. Toradol and steroids will be given here, gabapentin steroids be prescribed for home. Refer to orthopedics. I have discussed with the patient there likely diagnosis, aftercare plan, follow -up plans and my usual and customary return precautions. They verbalized understanding of this. Discharge - Discharge Clinical Impression: Sciatica, right side Condition: Good Disposition: HOME, SELF-CARE Instructions: Ice Packs ([facility]), Low Back Pain ([facility]) Prescriptions: Gabapentin 300 mg PO TID #14 capsule Prednisone [Deltasone 20 mg Tablet] 3 tab PO DAILY 5 Days tablet Referrals: LOREN PAULSON MD [ACTIVE STAFF] - Follow up as needed
== END 2017-04-06 12:00 | disposition home or self-care (01) ==
LOC: ER 10:05
DX: G89.29 Other chronic pain (principal); M54.31 Sciatica, right side; I10 Essential (primary) hypertension; J44.9 Chronic obstructive pulmonary disease, unspecified; F17.210 Nicotine dependence, cigarettes, uncomplicated; Z71.6 Tobacco abuse counseling; Z88.0 Allergy status to penicillin
CPT/HCPCS: 99283; J7512

== ENCOUNTER 2017-08-06 14:39 | Emergency (ER) | payer OTHER ==
[2017-08-06] MEDS ORDERED: IBUPROFEN 800 MG TABLET PO ONE (15:36)
[2017-08-06] MEDS ORDERED: LIDOCAINE 5% (700 MG) TRANSDERMAL ADH..PATCH TP ONE (15:36)
[2017-08-06] MEDS ORDERED: DEXAMETHASONE SOD PHOS INJ 10 MG/1 ML VIAL IM ONE (15:36)
[2017-08-06] MEDS ORDERED: CYCLOBENZAPRINE HCL 10 MG TABLET PO ONE (15:36)
--- NOTE | 2017-08-06 15:41 | ER Document Report ---
ED Neck/Back Problem - General Chief Complaint: Back Pain Stated Complaint: BACK PAIN Time Seen by Provider: 08/06/17 15:21 Mode of Arrival: Ambulatory Information source: Patient Notes: 52-year-old male presented ED for complaint of back pain since he was working in his yard. Patient states he has a history of back pain and in the past when he has had pain this but had some prednisone that helped a lot. 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 TRAVEL OUTSIDE OF THE [place] IN LAST 30 DAYS: No - HPI Patient complains to provider of: Pain, Lower back Onset: This afternoon Where: Home, Outdoors Onset: Chronic Timing: Worse Quality of pain: Sharp, Throbbing Severity: Moderate Pain Level: 4 Context: Lifting Recent injury: Possibly Associated symptoms: Like prior neck/back pain, Radiation to leg, Lower back pain. denies: Constipation, Incontinence, Motor loss, Numbness/tingling, Sensory loss, Sweaty, Unable to urinate Exacerbated by: Movement of trunk Relieved by: Nothing Similar symptoms previously: Yes Recently seen / treated by doctor: No - Related Data Allergies/Adverse Reactions: Penicillins Allergy (Intermediate, Verified 08/06/17 15:00) Hives ketorolac tromethamine [From Toradol] Adverse Reaction (Intermediate, Verified 08/06/17 15:00) headache Past Medical History - General Information source: Patient - Social History Smoking Status: Current Every Day Smoker Cigarette use (# per day): Yes - 1 1/2 packs per day Chew tobacco use (# tins/day): No Smoking Education Provided: Yes - 4 minutes Frequency of alcohol use: Heavy - Every other day Drug Abuse: None Occupation: He in air Lives with: Family Family History: Arthritis, CAD, CVA, DM, Hyperlipidemia, Hypertension, Malignancy. denies: COPD, Thyroid Disfunction Patient has suicidal ideation: No Patient has homicidal ideation: No - Past Medical History Cardiac Medical History: Reports: Hx Hypertension - Non-compliant with meds Pulmonary Medical History: Reports: Hx Bronchitis, Hx COPD, Hx Pneumonia EENT Medical History: Reports: None Neurological Medical History: Reports: Hx Cerebrovascular Accident, Other - Aneurysm brain bleed Endocrine Medical History: Reports: None Renal/ Medical History: Reports: None Malignancy Medical History: Reports None GI Medical History: Reports: None Musculoskeltal Medical History: Reports Hx Arthritis, Reports Hx Musculoskeletal Deformity, Reports Hx Musculoskeletal Trauma Skin Medical History: Reports None Psychiatric Medical History: Reports: None Traumatic Medical History: Reports: Hx Fractures - Wrist femur ribs, Hx Pneumothorax, Hx Traumatic Brain Injury Infectious Medical History: Reports: None Past Surgical History: Reports: Hx Abdominal Surgery - pyloric stenosis, rt. ing. jasmeet., Hx Neurologic Surgery - brain injury surgery, Hx Orthopedic Surgery - rt wrist tendon repair, Other - Chest tube - Immunizations Immunizations up to date: Yes Hx Diphtheria, Pertussis, Tetanus Vaccination: Yes Review of Systems - Review of Systems Constitutional: No symptoms reported EENT: No symptoms reported Cardiovascular: No symptoms reported Respiratory: No symptoms reported Gastrointestinal: No symptoms reported Genitourinary: No symptoms reported Male Genitourinary: No symptoms reported Musculoskeletal: Back pain, Muscle pain, Muscle stiffness Skin: No symptoms reported Hematologic/Lymphatic: No symptoms reported Neurological/Psychological: No symptoms reported -: Yes All other systems reviewed and negative Physical Exam - Vital signs Vitals: Temp Pulse Resp BP Pulse Ox 97.9 F 92 14 152/93 H 97 08/06/17 15:03 08/06/17 15:03 08/06/17 15:03 08/06/17 15:03 08/06/17 15:03 Interpretation: Normal - General General appearance: Appears well, Alert - HEENT Head: Normocephalic, Atraumatic Eyes: Normal Pupils: PERRL - Respiratory Respiratory status: No respiratory distress Chest status: Nontender Breath sounds: Normal Chest palpation: Normal - Cardiovascular Rhythm: Regular Heart sounds: Normal auscultation Murmur: No - Abdominal Inspection: Normal Distension: No distension Bowel sounds: Normal Tenderness: Nontender Organomegaly: No organomegaly - Back Back: Normal, Tender. No: Deformity/step-off, CVA tenderness, Vertebra tenderness, Scars, Scoliosis, Wounds Notes: No signs or symptoms of cauda equina, no loss control of bowel bladder, no saddle anesthesia, no loss control of lower extremities, no loss of sensation to the lower legs - Extremities General upper extremity: Normal inspection, Nontender, Normal color, Normal ROM , Normal temperature General lower extremity: Normal inspection, Nontender, Normal color, Normal ROM , Normal temperature, Normal weight bearing. No: Jeff's sign - Neurological Neuro grossly intact: Yes Cognition: Normal Orientation: AAOx4 [place] Coma Scale Eye Opening: Spontaneous [place] Coma Scale Verbal: Oriented [place] Coma Scale Motor: Obeys Commands [place] Coma Scale Total: 15 Speech: Normal Motor strength normal: LUE, RUE, LLE, RLE Sensory: Normal - Psychological Associated symptoms: Normal affect, Normal mood - Skin Skin Temperature: Warm Skin Moisture: Dry Skin Color: Normal Course - Re-evaluation Re-evalutation: 08/06/17 21:28 After performing a Medical Screening Examination, I estimate there is LOW risk for EXPANDING OR RUPTURED ABDOMINAL AORTIC ANEURYSM, CAUDA EQUINA SYNDROME, EPIDURAL MASS LESION, or HERNIATED DISK CAUSING SEVERE SPINAL STENOSIS, thus I consider the discharge disposition reasonable. I have reevaluated this patient multiple times and no significant life threatening changes are noted. The patient and I have discussed the diagnosis and risks, and we agree with discharging home and close follow-up. We also discussed returning to the Emergency Department immediately if new or worsening symptoms occur with the understanding that symptoms and presentations can change. We have discussed the symptoms which are most concerning (e.g., saddle anesthesia, urinary or bowel incontinence or retention, changing or worsening pain) that necessitate immediate return. - Vital Signs Vital signs: Temp Pulse Resp BP Pulse Ox 97.9 F 84 18 150/89 H 98 08/06/17 15:03 08/06/17 16:13 08/06/17 16:13 08/06/17 16:13 08/06/17 16:13 Discharge - Discharge Clinical Impression: Low back pain Qualifiers: Chronicity: chronic Back pain laterality: bilateral Sciatica presence: with sciatica Sciatica laterality: sciatica of right side Qualified Code(s): M54.41 - Lumbago with sciatica, right side Condition: Stable Disposition: HOME, SELF-CARE Instructions: Family Physicians / Practices Additional Instructions: LOW BACK PAIN: Three out of every four people will have an episode of disabling back pain during their lifetime. Most commonly the pain is due to straining of the muscles and ligaments in the low back. Usual treatment includes: (1) Rest on a firm surface. Avoid lying on your stomach. (2) Ice pack the painful area. After a few days, gentle heat may be used intermittently to relax the area, or ice packs can be continued. (3) Medication may be needed -- muscle relaxers and antiinflammatory medicines are commonly used. (4) As the back improves, exercises are prescribed to strengthen the back and abdominal muscles. Your doctor will advise you on the proper care for your back at each stage in your recovery. You may be better in a few days -- or healing may take several weeks. If new symptoms of a "herniated disc" (radiation of pain, numbness, or tingling down the back of the leg or weakness in the leg) occur, you should be re-examined. Further testing may be necessary. Chronic Back Pain Chronic back pain (pain persisting longer than three months) is a common problem. A medical evaluation can look for herniated disc, arthritis, osteoporosis, tumors, and infections. But at least half the time, there's no obvious treatable cause. Anxiety and depression tend to worsen back pain. Ibuprofen or other anti-inflammatory medicine can help. A heating pad, used for 15-20 minutes at a time, can ease pain. For this type of back pain, narcotic medicines should be avoided. Muscle relaxers are rarely helpful unless you're having spasms. Activity is important. Find an aerobic exercise program that your back can tolerate. Too much rest makes back pain worse. Specific back exercises are usually prescribed to strengthen the back and abdominal muscles. Often, a physical therapist can help. Avoid heavy lifting, working while bent over, or standing with both knees straight. Most back pain patients do better with a firm mattress. If new symptoms of a "herniated disc" (radiation of pain, numbness, or tingling down the back of the leg or weakness in the leg) occur, you should be re-examined. MUSCLE RELAXERS: Muscle relaxing medications are usually prescribed for acute muscle spasm or injury to the neck and back. They are often combined with antiinflammatory pain medication for increased relief. You may stop the muscle relaxer when the pain and stiffness have improved. Start the medication again if spasms recur. Muscle relaxers may cause drowsiness, especially with the first dose. Do not operate machinery or drive while under the effects of the medication. Most muscle relaxers last up to 24 hours. Do not combine the medication with alcohol. STEROID MEDICATION: You have been given an injection of medicine of the cortisone/steroid class. This medication is used to control inflammation or allergy. It is often continued as a pill for a short period of time, until the acute process subsides. There are usually no side effects from short-term use of cortisone-like medications. Some persons feel an increased sense of well-being and are not sleepy at bedtime. Long-term use of cortisone medications is best avoided, unless required for a severe condition. If your condition does not remit, or relapses after the course of corticosteroid medication, you should consult your physician. Stretching Exercises for the Back The physician has recommended that you begin stretching exercises for your back. These are often used even while the back is painful. However, you should notify the physician if the activities seem to increase your pain. PELVIC TILT: Lie flat on your back with knees bent. Tighten your stomach and buttock muscles so it flattens your lower back against the floor. Hold 10 seconds. Repeat 10 times, twice daily. KNEE RAISE: Lying on the back with knees bent, raise one knee to your chest, then the other. Hold both knees against the chest 10 seconds, then lower one knee at a time. Repeat 10 times, twice daily. PARTIAL TRUNK RAISE: Lie face down, arms at your sides. Keeping your waist on the floor, use your arms raise your chest up. Support yourself on your elbows for 30 seconds. Repeat twice daily, increasing the time to two minutes as you recover. ICE PACKS: Apply ice packs frequently against the painful area. Many different schedules are recommended, such as "20 minutes on, 20 minutes off" or "one hour ice, two hours rest." If you need to work, you may need to go longer between ice treatments. You should plan to have the area ice packed AT LEAST one fourth of the time. The ice should be applied over the wrap, tape, or splint, or over a layer of cloth -- not directly against the skin. Some ice bags have a built-in cloth and can be put directly on the skin. WARM PACKS: After approximately two days, apply gentle heat (such as a heating pad or hot water bottle) for about 20 to 30 minutes about every two hours -- at least four times daily. Warmth and elevation will help you make a more rapid recovery , and will ease the pain considerably. Do not use HOT heat, and never apply heat for longer than 30 minutes. The continuous heat can invisibly damage skin and muscles -- even when no burn is seen on the surface. Damaged muscles can make you MORE sore. FOLLOW-UP CARE: If you have been referred to a physician for follow-up care, call the physician s office for an appointment as you were instructed or within the next two days. If you experience worsening or a significant change in your symptoms, notify the physician immediately or return to the Emergency Department at any time for re-evaluation. Prescriptions: Cyclobenzaprine HCl [Flexeril 10 mg Tablet] 10 mg PO TIDP PRN #15 tab PRN Reason: Prednisone [Deltasone 10 mg Tablet] 10 mg PO ASDIR PRN #21 tablet PRN Reason: Forms: Elevated Blood Pressure, Smoking Cessation Education, Return to Work Referrals: FAMILIA HATCH MD [ASSOCIATE] - Follow up as needed
[2017-08-06 16:14] VITALS: BP 150/89
== END 2017-08-06 16:14 | disposition home or self-care (01) ==
LOC: ER 14:39
DX: M54.41 Lumbago with sciatica, right side (principal); F17.210 Nicotine dependence, cigarettes, uncomplicated; X58.XXXA Exposure to other specified factors, initial encounter; Y92.007 Garden or yard of unspecified non-institutional (private) residence as the place of occurrence of the external cause; I10 Essential (primary) hypertension; Z88.0 Allergy status to penicillin; Z86.73 Personal history of transient ischemic attack (TIA), and cerebral infarction without residual deficits
CPT/HCPCS: 99406; 99283; 96372; J1100

== ENCOUNTER 2017-08-07 19:42 | Emergency (ER) | payer OTHER ==
[2017-08-07 20:03] VITALS: BP 157/88
[2017-08-07] MEDS ORDERED: PREDNISONE 20 MG TABLET PO ONE (20:35)
--- NOTE | 2017-08-07 20:42 | ER Document Report ---
ED Neck/Back Problem - General Chief Complaint: Back Pain Stated Complaint: BACK PAIN Time Seen by Provider: 08/07/17 20:14 Mode of Arrival: Ambulatory Information source: Patient TRAVEL OUTSIDE OF THE [place] IN LAST 30 DAYS: No - HPI Patient complains to provider of: Pain, Lower back Notes: Patient is here with complaints of low back pain rating down the right leg. The patient has a history of intermittent chronic back pain with sciatica. He states that he lifted a few heavy AC units while at work and then worked in his backyard cutting weeds and developed some increased pain in his back going down his right leg. Patient was seen in the emergency department yesterday for same complaints. He requested a prescription for prednisone which she was given in the emergency department. His prescription said Deltasone on it, so he was concerned that he did not get the prescription that he was requesting. I explained that this was actually prescription for prednisone, he states that he had a prescription for Depakote. Patient states that he would like a dose of prednisone now because he is concerned that the pharmacy is going to close and would like a prescription for "prednisone." He denies any bowel or bladder dysfunction, no trauma, no blood thinners, no fevers, no abdominal pain, no nausea, vomiting, diarrhea. He denies any dysuria or hematuria. He denies any IV drug use. He has no other complaints. He states that this feels exactly like prior episodes of sciatica that he has had multiple times in the past. - Related Data Allergies/Adverse Reactions: Penicillins Allergy (Intermediate, Verified 08/06/17 15:00) Hives ketorolac tromethamine [From Toradol] Adverse Reaction (Intermediate, Verified 08/06/17 15:00) headache Past Medical History - Social History Smoking Status: Current Every Day Smoker Family History: Arthritis, CAD, CVA, DM, Hyperlipidemia, Hypertension, Malignancy. denies: COPD, Thyroid Disfunction - Past Medical History Cardiac Medical History: Reports: Hx Hypertension - Non-compliant with meds Denies: Hx Congestive Heart Failure, Hx Coronary Artery Disease, Hx Heart Attack, Hx Hypercholesterolemia Pulmonary Medical History: Reports: Hx Bronchitis, Hx COPD, Hx Pneumonia Denies: Hx Asthma, Hx Tuberculosis Neurological Medical History: Reports: Hx Cerebrovascular Accident. Denies: Hx Seizures Renal/ Medical History: Denies: Hx Benign Prostatic Hyperplasia, Hx End Stage Renal Disease, Hx Peritoneal Dialysis GI Medical History: Denies: Hx Cirrhosis, Hx Gastroesophageal Reflux Disease, Hx Ulcer Musculoskeltal Medical History: Reports Hx Arthritis, Denies Hx Multiple Sclerosis, Reports Hx Musculoskeletal Deformity, Reports Hx Musculoskeletal Trauma Psychiatric Medical History: Denies: Hx Bipolar Disorder, Hx Depression, Hx Schizophrenia Traumatic Medical History: Reports: Hx Fractures - Wrist femur ribs, Hx Pneumothorax, Hx Traumatic Brain Injury Past Surgical History: Reports: Hx Abdominal Surgery - pyloric stenosis, rt. ing. jasmeet., Hx Neurologic Surgery - brain injury surgery, Hx Orthopedic Surgery - rt wrist tendon repair, Other - Chest tube - Immunizations Immunizations up to date: Yes Hx Diphtheria, Pertussis, Tetanus Vaccination: Yes Review of Systems - Review of Systems -: Yes All other systems reviewed and negative Physical Exam - Vital signs Vitals: Temp Pulse Resp BP Pulse Ox 98.7 F 105 H 18 157/88 H 96 08/07/17 20:02 08/07/17 20:02 08/07/17 20:02 08/07/17 20:02 08/07/17 20:02 - Notes Notes: GENERAL: alert, cooperative, nontoxic, no distress. HEAD: normocephalic, atraumatic EYES: conjunctiva pink without discharge, no external redness or swelling. EARS: no external swelling, no external redness NOSE: atraumatic, no external swelling MOUTH/THROAT: mucous membranes moist and pink, posterior pharynx without erythema, swelling, exudate. No trismus or drooling. NECK: soft, supple, full range of motion, no meningismus. CHEST: no distress, lungs clear and equal throughout. Next Tory wheezing throughout CARDIAC: regular rate and rhythm, no murmur, normal capillary refill, normal pulses. No peripheral edema noted. ABDOMEN: soft, nontender, no pusatile mass. BACK: No CVA tenderness. Tenderness to the right SI joint and right sciatic notch. No rash. Limited range of motion secondary to pain. EXTREMITIES: full range of motion of all extremities. No redness, no swelling. NEURO: alert and oriented A&O x 3, no focal deficits, full range of motion of all extremities. 5 out of 5 flexion and extension of the lower extremities bilaterally. Patellar and Achilles deep tendon reflexes are +2 bilaterally. Normal sensation with no saddle anesthesia. Patient can dorsiflex the great toes bilaterally. PYSCH: appropriate mood, affect. Patient is cooperative. SKIN: pink, warm, dry, no rash. Course - Re-evaluation Re-evalutation: 08/07/17 20:43 Patient is nontoxic appearing with stable vitals. The patient has a history of intermittent low back pain with sciatica. He was here last night with the same complaints and was given a prescription for Deltasone which he thought was Depakote and came back to the emergency department today in hopes of getting a prescription for "prednisone". Explain that he actually received this prescription yesterday, he continues to tell me that he did not receive that prescription, therefore I will prescribe him another prescription for prednisone. Patient has a nonfocal exam with no trauma, no signs of cauda equina, epidural abscess/bleed, discitis, osteomyelitis, AAA, renal source of pain. At this point this seems to be sciatica which the patient has had multiple times in the past. Patient will be given a dose of prednisone in the emergency department. I have prescribed him a tapering dose of prednisone to go home with. I have also prescribed him 6 Ultram to go home with. I have reviewed his [place] controlled substance reporting system and he has only had one prescriptions in the last year which was last year. Patient instructed to follow-up with primary care if he does not improve in the next week, sooner for increasing pain, fever, difficulty controlling his bowels or bladder, weakness, abdominal pain, persistent vomiting, or for any further concerns. The patient is noted to have elevated blood pressure during today's emergency department visit. The patient was informed of this finding. The patient was instructed that this may be related to pre-hypertension and requires further evaluation with a primary care provider. The patient has no hypertensive symptoms at this time. The patient's emergency department workup and current diagnosis were explained to the patient and or family. Follow-up instructions were provided. Medications if prescribed were discussed. Instructions for when to return to the emergency department including specific worrisome symptoms were discussed with the patient and/or family. - Vital Signs Vital signs: Temp Pulse Resp BP Pulse Ox 98.7 F 105 H 18 157/88 H 96 08/07/17 20:02 08/07/17 20:02 08/07/17 20:02 08/07/17 20:02 08/07/17 20:02 Discharge - Discharge Clinical Impression: Sciatica Qualifiers: Laterality: right Qualified Code(s): M54.31 - Sciatica, right side Condition: Stable Disposition: HOME, SELF-CARE Instructions: Low Back Pain ([facility]), Sciatica ([facility]), Oral Narcotic Medication ( [facility]) Additional Instructions: Take medications as prescribed. Follow-up with your doctor at the next available appointment. Follow-up sooner for increasing pain, fever, difficulty controlling her bowels or bladder, weakness, abdominal pain, persistent vomiting , or for any further concerns. Your blood pressure was elevated during today's visit. Have this rechecked with your doctor. Prescriptions: Tramadol HCl [Ultram 50 mg Tablet] 50 mg PO Q6HP PRN #6 tablet PRN Reason: Prednisone 5 mg PO ASDIR 18 Days tab.ds.pk Forms: Elevated Blood Pressure, Smoking Cessation Education Referrals: [facility] [Provider Group] - Follow up as needed
== END 2017-08-07 20:48 | disposition home or self-care (01) ==
LOC: ER 19:42
DX: M54.31 Sciatica, right side (principal); M54.5 Low back pain; M54.9 Dorsalgia, unspecified; M79.604 Pain in right leg; X50.0XXA Overexertion from strenuous movement or load, initial encounter; X50.3XXA Overexertion from repetitive movements, initial encounter; Y93.89 Activity, other specified; Y92.096 Garden or yard of other non-institutional residence as the place of occurrence of the external cause; I10 Essential (primary) hypertension; J44.9 Chronic obstructive pulmonary disease, unspecified; F17.200 Nicotine dependence, unspecified, uncomplicated
CPT/HCPCS: 99283; J7512

== ENCOUNTER 2017-08-20 17:35 | Emergency (ER) | payer OTHER ==
[2017-08-20 17:59] VITALS: BP 148/87
--- NOTE | 2017-08-20 18:39 | RADIOLOGY REPORT (SQ) ---
EXAM DESCRIPTION: HIP LEFT AP/LATERAL COMPLETED DATE/TIME: 08/20/2017 6:11 pm REASON FOR STUDY: fall COMPARISON: None. NUMBER OF VIEWS: Two views. TECHNIQUE: AP pelvis and additional frog-leg view of the left hip. LIMITATIONS: None. FINDINGS: MINERALIZATION: Normal. LEFT HIP: No fracture or dislocation. No worrisome bone lesions. RIGHT HIP: No fracture or dislocation. No worrisome bone lesions. PUBIS AND ISCHIUM: No fracture. PELVIS: No fracture. SACRUM: No fracture or dislocation. No worrisome bone lesions. LOWER LUMBAR SPINE: No fracture or dislocation. No worrisome bone lesions. No significant disc disea se. SOFT TISSUES: No findings. OTHER: No other significant finding. IMPRESSION: NEGATIVE STUDY OF THE LEFT HIP AND PELVIS. NO RADIOGRAPHIC EVIDENCE OF ACUTE INJURY. TECHNICAL DOCUMENTATION: JOB ID: [id number] [employer]- All Rights Reserved Reading location - IP/workstation name: [email or web address]
[2017-08-20] MEDS ORDERED: IBUPROFEN 600 MG TABLET PO ONE (19:07)
[2017-08-20] MEDS ORDERED: ACETAMINOPHEN 325 MG TABLET PO ONE (19:07)
[2017-08-20] MEDS ORDERED: LIDOCAINE 5% (700 MG) TRANSDERMAL ADH..PATCH TP ONE (19:07)
--- NOTE | 2017-08-20 19:26 | ER Document Report ---
ED General - General Chief Complaint: Hip Pain Stated Complaint: FALL/LEFT HIP AND ARM PAIN Time Seen by Provider: 08/20/17 19:05 Notes: Patient is a 52-year-old male without chronic medical problems who presents with left hip pain. Patient states that he fell approximately 6-8 feet off of a roof landing onto his left hip yesterday. Patient states that he was able to get up, walk around, but since that time has had a progressively worsening throbbing, dull, aching pain to his left external thigh and hip. He states any movement worsens the pain. Touching the area also worsens the pain. He states that he has been trying naproxen for the pain without improvement. He denies any head or neck trauma. He denies any focal weakness or numbness. He denies any history of similar injury in the past. He has not seen his primary doctor regarding today's concerns. TRAVEL OUTSIDE OF THE [place] IN LAST 30 DAYS: No - Related Data Allergies/Adverse Reactions: Penicillins Allergy (Intermediate, Verified 08/20/17 17:37) Hives ketorolac tromethamine [From Toradol] Adverse Reaction (Intermediate, Verified 08/20/17 17:37) headache Past Medical History - General Information source: Patient - Social History Smoking Status: Current Every Day Smoker Frequency of alcohol use: None Drug Abuse: None Lives with: Spouse/Significant other Family History: Arthritis, CAD, CVA, DM, Hyperlipidemia, Hypertension, Malignancy. denies: COPD, Thyroid Disfunction - Past Medical History Cardiac Medical History: Reports: Hx Hypertension - Non-compliant with meds Denies: Hx Congestive Heart Failure, Hx Coronary Artery Disease, Hx Heart Attack, Hx Hypercholesterolemia Pulmonary Medical History: Reports: Hx Bronchitis, Hx COPD, Hx Pneumonia Denies: Hx Asthma, Hx Tuberculosis Neurological Medical History: Reports: Hx Cerebrovascular Accident. Denies: Hx Seizures Renal/ Medical History: Denies: Hx Benign Prostatic Hyperplasia, Hx End Stage Renal Disease, Hx Peritoneal Dialysis GI Medical History: Denies: Hx Cirrhosis, Hx Gastroesophageal Reflux Disease, Hx Ulcer Musculoskeltal Medical History: Reports Hx Arthritis, Denies Hx Multiple Sclerosis, Reports Hx Musculoskeletal Deformity, Reports Hx Musculoskeletal Trauma Psychiatric Medical History: Denies: Hx Bipolar Disorder, Hx Depression, Hx Schizophrenia Traumatic Medical History: Reports: Hx Fractures - Wrist femur ribs, Hx Pneumothorax, Hx Traumatic Brain Injury Past Surgical History: Reports: Hx Abdominal Surgery - pyloric stenosis, rt. ing. jasmeet., Hx Neurologic Surgery - brain injury surgery, Hx Orthopedic Surgery - rt wrist tendon repair, Other - Chest tube - Immunizations Immunizations up to date: Yes Hx Diphtheria, Pertussis, Tetanus Vaccination: Yes Review of Systems - Review of Systems Notes: Constitutional: Negative for fever. Eyes: Negative for visual changes. ENT: Negative for facial injury Cardiovascular: Negative for chest injury. Respiratory: Negative for shortness of breath. Gastrointestinal: Negative for abdominal injury. Genitourinary: Negative for genital injury Musculoskeletal: Positive for left hip injury Skin: Negative for laceration/abrasions. Neurological: Negative for head injury. Physical Exam - Vital signs Vitals: Temp Pulse Resp BP Pulse Ox 98.1 F 98 18 148/87 H 96 08/20/17 17:57 08/20/17 17:57 08/20/17 17:57 08/20/17 17:57 08/20/17 17:57 Interpretation: Hypertensive Notes: PHYSICAL EXAMINATION: GENERAL: Well-appearing, no acute distress. HEAD: Atraumatic, normocephalic. EYES: Pupils equal round and reactive to light, extraocular movements intact, sclera anicteric, conjunctiva are normal. ENT: nares patent, no oral pharyngeal trauma. No hemotympanum, no Arreaga's sign , no raccoon eyes. NECK: No midline cervical spine tenderness. Patient able to move their head to 45 bilaterally without any discomfort. LUNGS: Breath sounds clear to auscultation bilaterally and equal. No wheezes rales or rhonchi. HEART: Regular rate and rhythm without murmurs. CHEST WALL: No ecchymosis over the chest wall. ABDOMEN: Soft, nontender, normoactive bowel sounds. No guarding, no rebound. No seatbelt sign. EXTREMITIES: Normal range of motion, no pitting or edema. No long bone deformities. BACK: No midline spinal tenderness, step-offs, or deformities. NEUROLOGICAL: Face symmetric. Tongue protrudes midline. Extraocular motions intact. Pupils are 2 mm and equally reactive. Normal speech, normal gait. 5 out of 5 strength in both the distal and proximal upper and lower extremities bilaterally. Sensation is grossly intact throughout. Finger to nose testing normal. Pronator drift normal. PSYCH: Normal mood, normal affect. SKIN: Warm, Dry, normal turgor, there is a large hematoma to the left external thigh that is tender on palpation. Course - Re-evaluation Re-evalutation: 08/20/17 19:20 Patient presents after he fell onto his left hip approximately 24 hours ago. X- ray is negative for any acute fracture. The patient is able to bear weight. Normal range of motion of the left hip but he does have a very large hematoma along the lateral aspect of the thigh, hamstring and buttock. Patient denies any additional injuries. He is able to walk. The remainder of the examination is nonfocal without any findings. Patient did not hit his head or neck. His only complaint is left hip pain. When asked how the patient was trying to control his pain he reported that he had been taking naproxen. Review of the [place] controlled substance database however shows that the patient has received 48 oxycodone tablets from 2 different providers in less than 8 days. He did fill 28 10-325 Percocet tablets on the . When I asked the patient directly if he had access to any oxycodone or if he recently filled an oxycodone prescription he denied this stating that he had no such medication at home. When I showed the patient his [place] controlled substance database report form he did not have an answer for why he had lied to me about not having access to Percocet or why he was here asking for additional pain medication. I did provide the patient with non-opiate analgesics, encouraged him to be very cautious with his use of opiates, explained the highly addictive potential these medications and need to avoid these for nonserious injuries such as a large hematoma. The patient did leave without receiving his discharge paperwork as he was obviously unhappy that I was not providing him additional narcotic pain medications. Future providers should be quite cautious in providing additional pain medications to this patient as he has received 6 controlled substance prescriptions in the month of August 2017 alone. - Vital Signs Vital signs: Temp Pulse Resp BP Pulse Ox 98.1 F 98 18 148/87 H 96 08/20/17 17:57 08/20/17 17:57 08/20/17 17:57 08/20/17 17:57 08/20/17 17:57 - Diagnostic Test Radiology reviewed: Image reviewed, Reports reviewed Radiology results interpreted by me: 08/20/17 19:26 Left hip x-ray: No acute fracture or dislocation Discharge - Discharge Clinical Impression: Fall Qualifiers: Encounter type: initial encounter Qualified Code(s): W19.XXXA - Unspecified fall, initial encounter Injury of left hip Qualifiers: Encounter type: initial encounter Qualified Code(s): S79.912A - Unspecified injury of left hip, initial encounter Hematoma of left lower extremity Qualifiers: Encounter type: initial encounter Qualified Code(s): S80.12XA - Contusion of left lower leg, initial encounter Condition: Good Disposition: HOME, SELF-CARE
== END 2017-08-20 19:25 | disposition home or self-care (01) ==
LOC: ER 17:35
DX: S79.912A Unspecified injury of left hip, initial encounter (principal); S80.12XA Contusion of left lower leg, initial encounter; W13.2XXA Fall from, out of or through roof, initial encounter; Z88.0 Allergy status to penicillin; F17.200 Nicotine dependence, unspecified, uncomplicated; I10 Essential (primary) hypertension; J44.9 Chronic obstructive pulmonary disease, unspecified
CPT/HCPCS: 99283

== ENCOUNTER 2017-11-04 13:32 | Emergency (ER) | payer SELFPAY ==
[2017-11-04] MEDS ORDERED: ACETAMINOPHEN 325 MG TABLET PO ONE (14:36)
[2017-11-04] MEDS ORDERED: FAMOTIDINE 20 MG TABLET PO ONE (14:36)
--- NOTE | 2017-11-04 14:39 | ER Document Report ---
ED Medical Screen (RME) - General Chief Complaint: Abdominal Pain Stated Complaint: ABDOMINAL PAIN,BLOOD IN STOOL Time Seen by Provider: 11/04/17 14:28 Notes: 52-year-old male patient with history of heavy EtOH use but reports she is decreased his alcohol consumption in the last 2 weeks. Reports right-sided abdominal pain with dark black stool. He did drink Pepto-Bismol yesterday, for his abdominal pain, but states this was after the black stool started. He also reports yesterday morning vomiting on his front porch and it had a little blood in it so he had to use a hose to wash it off. I have greeted and performed a rapid initial assessment of this patient. A comprehensive ED assessment and evaluation of the patient, analysis of test results and completion of the medical decision making process will be conducted by additional ED providers. TRAVEL OUTSIDE OF THE [place] IN LAST 30 DAYS: No - Related Data Allergies/Adverse Reactions: Penicillins Allergy (Intermediate, Verified 08/20/17 17:37) Hives ketorolac tromethamine [From Toradol] Adverse Reaction (Intermediate, Verified 08/20/17 17:37) headache Past Medical History - Social History Frequency of alcohol use: Social Drug Abuse: None - Past Medical History Cardiac Medical History: Reports: Hx Hypertension - Non-compliant with meds Denies: Hx Congestive Heart Failure, Hx Coronary Artery Disease, Hx Heart Attack, Hx Hypercholesterolemia Pulmonary Medical History: Reports: Hx Bronchitis, Hx COPD, Hx Pneumonia Denies: Hx Asthma, Hx Tuberculosis Neurological Medical History: Reports: Hx Cerebrovascular Accident. Denies: Hx Seizures Renal/ Medical History: Denies: Hx Benign Prostatic Hyperplasia, Hx End Stage Renal Disease, Hx Peritoneal Dialysis GI Medical History: Denies: Hx Cirrhosis, Hx Gastroesophageal Reflux Disease, Hx Ulcer Musculoskeltal Medical History: Reports Hx Arthritis, Denies Hx Multiple Sclerosis, Reports Hx Musculoskeletal Deformity, Reports Hx Musculoskeletal Trauma Psychiatric Medical History: Denies: Hx Bipolar Disorder, Hx Depression, Hx Schizophrenia Traumatic Medical History: Reports: Hx Fractures - Wrist femur ribs, Hx Pneumothorax, Hx Traumatic Brain Injury Past Surgical History: Reports: Hx Abdominal Surgery - pyloric stenosis, rt. ing. jasmeet., Hx Neurologic Surgery - brain injury surgery, Hx Orthopedic Surgery - rt wrist tendon repair, Other - Chest tube - Immunizations Immunizations up to date: Yes Hx Diphtheria, Pertussis, Tetanus Vaccination: Yes Physical Exam - Vital signs Vitals: Temp Pulse Resp BP Pulse Ox 98.4 F 126 H 20 146/114 H 97 11/04/17 13:56 11/04/17 13:56 11/04/17 13:56 11/04/17 13:56 11/04/17 13:56 Course - Vital Signs Vital signs: Temp Pulse Resp BP Pulse Ox 98.4 F 126 H 20 146/114 H 97 11/04/17 13:56 11/04/17 13:56 11/04/17 13:56 11/04/17 13:56 11/04/17 13:56
[2017-11-04 15:08] LABS: ABSOLUTE EOSINOPHILS # (AUTO) 0.1 10^3/uL (0.0-0.6); ABSOLUTE LYMPHOCYTES (AUTO) 1.6 10^3/uL (0.5-4.7); ABSOLUTE MONOCYTES (AUTO) 1.2 10^3/uL (0.1-1.4); ABSOLUTE NEUT (AUTO) 7.3 10^3/uL (1.7-8.2); BASOPHILS % (AUTO) 0.3 % (0-2); EOSINOPHILS % (AUTO) 1.1 % (0-6); HEMATOCRIT 46.3 % (37.9-51.0); LYMPHOCYTES % (AUTO) 15.8 % (13-45); MEAN CORPUSCULAR HEMOGLOBIN 30.9 pg (27.0-33.4); MEAN CORPUSCULAR HGB CONC 34.5 g/dL (32.0-36.0); MEAN CORPUSCULAR VOLUME 90 fl (80-97); MONOCYTES % (AUTO) 11.5 % (3-13); PLATELET COUNT 231 10^3/uL (150-450); RED BLOOD COUNT 5.17 10^6/uL (4.35-5.55); SEGMENTED NEUTROPHILS % (AUTO) 71.3 % (42-78); TOTAL CELLS COUNTED % (AUTO) 100 %; WHITE BLOOD COUNT 10.3 10^3/uL (4.0-10.5)
[2017-11-04 15:14] LABS: APPEARANCE,URINE SLIGHTLY-CLOUDY; BILIRUBIN,URINE NEGATIVE (NEGATIVE); CALCIUM OXALATE CRYSTALS,URINE MANY /HPF; GLUCOSE, URINE NEGATIVE (NEGATIVE); KETONES,URINE TRACE mg/dL (NEGATIVE); LEUKOCYTE ESTERASE,URINE NEGATIVE (NEGATIVE); NITRITE,URINE NEGATIVE (NEGATIVE); PROTEIN,URINE 100 mg/dL (NEGATIVE); URINE SPECIFIC GRAVITY 1.038
[2017-11-04 15:17] LABS: COLOR,URINE DARK YELLOW
--- NOTE | 2017-11-04 15:27 | RADIOLOGY REPORT (SQ) ---
EXAM DESCRIPTION: ACUTE ABDOMEN SERIES COMPLETED DATE/TIME: 11/04/2017 3:19 pm REASON FOR STUDY: Black stool, vomiting blood, right-sided abdominal COMPARISON: None. NUMBER OF VIEWS: Three views. TECHNIQUE: Frontal chest, supine abdomen and upright/decubitus abdomen radiographic images acquired. LIMITATIONS: None. FINDINGS: CHEST: Lungs clear of infiltrates. FREE AIR: None. No abnormal gas collections. BOWEL GAS PATTERN: Nonobstructive pattern. No dilated loops or air fluid levels. CALCIFICATIONS: No suspicious calcifications. HARDWARE: None in the abdomen. SOFT TISSUES: No gross mass or suggestion of organomegaly. BONES: No acute fracture. No worrisome bone lesions. OTHER: No other significant finding. IMPRESSION: NO RADIOGRAPHIC EVIDENCE FOR ACUTE ABDOMINAL DISEASE. TECHNICAL DOCUMENTATION: JOB ID: [id number]- All Rights Reserved Reading location - IP/workstation name: [email or web address]
[2017-11-04 15:28] LABS: ALANINE AMINOTRANSFERASE 133 U/L (21-72); ALBUMIN 4.7 g/dL (3.5-5.0); ALKALINE PHOSPHATASE 77 U/L (38-126); ANION GAP 12 (5-19); ASPARTATE AMINO TRANSFERASE 87 U/L (17-59); BILIRUBIN,DIRECT 0.4 mg/dL (0.0-0.4); BILIRUBIN,TOTAL 0.6 mg/dL (0.2-1.3); BLOOD UREA NITROGEN 24 mg/dL (7-20); CALCIUM 10.2 mg/dL (8.4-10.2); CARBON DIOXIDE 24 mmol/L (22-30); CHLORIDE 109 mmol/L (98-107); GLUCOSE 95 mg/dL (75-110); LIPASE 62.2 U/L (23-300); POTASSIUM 4.5 mmol/L (3.6-5.0); SODIUM 145.2 mmol/L (137-145); TOTAL PROTEIN 8.6 g/dL (6.3-8.2)
[2017-11-04] MEDS ORDERED: LIDOCAINE 5% (700 MG) TRANSDERMAL ADH..PATCH TP ONE (18:44)
[2017-11-04] MEDS ORDERED: DICYCLOMINE HCL 20 MG TABLET PO ONE (18:47)
--- NOTE | 2017-11-04 18:49 | ER Document Report ---
ED General - General Chief Complaint: Abdominal Pain Stated Complaint: ABDOMINAL PAIN,BLOOD IN STOOL Time Seen by Provider: 11/04/17 14:28 TRAVEL OUTSIDE OF THE [place] IN LAST 30 DAYS: No - HPI Patient complains to provider of: Abdominal pain Notes: Patient coming in for abdominal pain. Patient states history of hernia repair few years ago. Patient states developed abdominal pain points to the right abdominal rectus muscle patient states pain after lifting a car engine yesterday. Patient does have a small bruise on the abdominal wall. Patient also complaining of dark stools over the last 2 3 days. Patient does have a history significant for alcohol abuse however has been weaning down over the last few weeks. Patient denies any fevers chills nausea vomiting. Patient upon my evaluation resting comfortably. Patient states he has not followed up with his operating surgeon since the hernia repair reviewed patient's past visits and multiple evaluations for groin pain hernia pain - Related Data Allergies/Adverse Reactions: Penicillins Allergy (Intermediate, Verified 08/20/17 17:37) Hives ketorolac tromethamine [From Toradol] Adverse Reaction (Intermediate, Verified 08/20/17 17:37) headache Past Medical History - Social History Smoking Status: Current Every Day Smoker Frequency of alcohol use: Social Drug Abuse: None Family History: Arthritis, CAD, CVA, DM, Hyperlipidemia, Hypertension, Malignancy. denies: COPD, Thyroid Disfunction Patient has suicidal ideation: No Patient has homicidal ideation: No - Past Medical History Cardiac Medical History: Reports: Hx Hypertension - Non-compliant with meds Denies: Hx Congestive Heart Failure, Hx Coronary Artery Disease, Hx Heart Attack, Hx Hypercholesterolemia Pulmonary Medical History: Reports: Hx Bronchitis, Hx COPD, Hx Pneumonia Denies: Hx Asthma, Hx Tuberculosis Neurological Medical History: Reports: Hx Cerebrovascular Accident. Denies: Hx Seizures Renal/ Medical History: Denies: Hx Benign Prostatic Hyperplasia, Hx End Stage Renal Disease, Hx Peritoneal Dialysis GI Medical History: Denies: Hx Cirrhosis, Hx Gastroesophageal Reflux Disease, Hx Ulcer Musculoskeltal Medical History: Reports Hx Arthritis, Denies Hx Multiple Sclerosis, Reports Hx Musculoskeletal Deformity, Reports Hx Musculoskeletal Trauma Psychiatric Medical History: Denies: Hx Bipolar Disorder, Hx Depression, Hx Schizophrenia Traumatic Medical History: Reports: Hx Fractures - Wrist femur ribs, Hx Pneumothorax, Hx Traumatic Brain Injury Past Surgical History: Reports: Hx Abdominal Surgery - pyloric stenosis, rt. ing. jasmeet., Hx Neurologic Surgery - brain injury surgery, Hx Orthopedic Surgery - rt wrist tendon repair, Other - Chest tube - Immunizations Immunizations up to date: Yes Hx Diphtheria, Pertussis, Tetanus Vaccination: Yes Review of Systems - Review of Systems Constitutional: No symptoms reported EENT: No symptoms reported Cardiovascular: No symptoms reported Respiratory: No symptoms reported Gastrointestinal: Abdominal pain, Other - Dark stools Genitourinary: No symptoms reported Male Genitourinary: No symptoms reported Musculoskeletal: No symptoms reported Skin: No symptoms reported Hematologic/Lymphatic: No symptoms reported Neurological/Psychological: No symptoms reported Physical Exam - Vital signs Vitals: Temp Pulse Resp BP Pulse Ox 98.4 F 126 H 20 146/114 H 97 11/04/17 13:56 11/04/17 13:56 11/04/17 13:56 11/04/17 13:56 11/04/17 13:56 Interpretation: Normal - General General appearance: Appears well, Alert - HEENT Head: Normocephalic, Atraumatic Eyes: Normal Pupils: PERRL - Respiratory Respiratory status: No respiratory distress Chest status: Nontender Breath sounds: Normal Chest palpation: Normal - Cardiovascular Rhythm: Regular Heart sounds: Normal auscultation Murmur: No - Abdominal Inspection: Normal Distension: No distension Bowel sounds: Normal Tenderness: Tender - Mild tenderness to palpation of the right side of the abdominis rectus muscle patient does have a quarter size bruise in the middle of the abdominal rectal muscle on the right side Organomegaly: No organomegaly - Back Back: Normal, Nontender - Extremities General upper extremity: Normal inspection, Nontender, Normal color, Normal ROM , Normal temperature General lower extremity: Normal inspection, Nontender, Normal color, Normal ROM , Normal temperature, Normal weight bearing. No: Jeff's sign - Neurological Neuro grossly intact: Yes Cognition: Normal Orientation: AAOx4 B[place] Coma Scale Eye Opening: Spontaneous [place] Coma Scale Verbal: Oriented [place] Coma Scale Motor: Obeys Commands B[place] Coma Scale Total: 15 Speech: Normal Motor strength normal: LUE, RUE, LLE, RLE Sensory: Normal - Psychological Associated symptoms: Normal affect, Normal mood - Skin Skin Temperature: Warm Skin Moisture: Dry Skin Color: Normal Course - Re-evaluation Re-evalutation: 11/05/17 01:41 Laboratory studies not reveal any critical pathology. Hemoglobin this time is stable. There is no signs of hernias there is signs of bruising to the abdominal wall more likely causing the patient's pain. Patient is very adamant that he needs "significant pain medication. Explained at this time we will treat his pain with Tylenol Motrin that he can follow-up with his operating physician for further evaluation. Patient will also get be given a prescription for Bentyl and omeprazole patient states understanding was discharged home. The patient presents with abdominal pain without signs of peritonitis or other life-threatening or serious etiology. The patient appears stable for discharge and has been instructed to return immediately if the symptoms worsen in any way, or in 8-12hr if not improved for re-evaluation. The patient has been instructed to return if the symptoms worsen or change in any way. 11/05/17 01:42 - Vital Signs Vital signs: Temp Pulse Resp BP Pulse Ox 98.6 F 93 16 173/113 H 96 11/04/17 19:03 11/04/17 19:03 11/04/17 19:03 11/04/17 19:03 11/04/17 19:03 - Laboratory Result Diagrams: 11/04/17 14:40 11/04/17 14:40 Laboratory results interpreted by me: 11/04/17 11/04/17 14:40 14:40 Sodium 145.2 H Chloride 109 H BUN 24 H AST 87 H ALT 133 H Total Protein 8.6 H Urine Protein 100 H Urine Ketones TRACE H Urine Urobilinogen 2.0 H Urine Ascorbic Acid 20 H Discharge - Discharge Clinical Impression: Abdominal pain Qualifiers: Abdominal location: generalized Qualified Code(s): R10.84 - Generalized abdominal pain Contusion, abdominal wall Qualifiers: Encounter type: initial encounter Qualified Code(s): S30.1XXA - Contusion of abdominal wall, initial encounter Condition: Good Disposition: HOME, SELF-CARE Instructions: Abdominal Pain ([facility]), Contusion ([facility]), Gastritis ([facility]) Additional Instructions: Laboratory studies did not show any signs of significant infection or blood loss. Would recommend to eat a bland diet for the next few days. There is a small bruise in the abdomen however did not feel any signs of significant herniation I would recommend following up with the surgeon performed your surgery. We recommend taking Tylenol Motrin for your pain he may also try the Bentyl for your pain I would also recommend warm packs ice packs to the area that hurts. Return to ER for any concerns. Prescriptions: Dicyclomine HCl [Bentyl 20 mg Tablet] 20 mg PO QID #30 tablet Omeprazole 20 mg PO DAILY #14 capsule.dr Referrals: EMI RAHMAN MD [ACTIVE STAFF] - Follow up as needed
[2017-11-04 19:09] VITALS: BP 173/113
== END 2017-11-04 19:13 | disposition home or self-care (01) ==
LOC: ER 13:32
DX: S30.1XXA Contusion of abdominal wall, initial encounter (principal); R10.84 Generalized abdominal pain; R19.5 Other fecal abnormalities; X50.9XXA Other and unspecified overexertion or strenuous movements or postures, initial encounter; F17.200 Nicotine dependence, unspecified, uncomplicated; I10 Essential (primary) hypertension; J44.9 Chronic obstructive pulmonary disease, unspecified
CPT/HCPCS: 99284; 36415; 83690; 85025; 80053; 81001; 74022; J3490

== ENCOUNTER 2018-03-21 08:38 | Emergency (ER) | payer SELFPAY ==
[2018-03-21] MEDS ORDERED: ACETAMINOPHEN 325 MG TABLET PO ONE (09:27)
[2018-03-21] MEDS ORDERED: TRAMADOL HCL 50 MG TABLET PO ONE ×2 (09:28→12:05)
[2018-03-21] MEDS ORDERED: METHYLPREDNISOLONE INJ 125 MG/2 ML SDV IV ONE (09:29)
[2018-03-21] MEDS ORDERED: IPRATROPIUM/ALBUTEROL 0.5-2.5 MG/3 ML AMPUL NEB ONE (09:29)
[2018-03-21 10:02] LABS: ABSOLUTE BASOPHILS # (AUTO) 0.1 10^3/uL (0.0-0.2); ABSOLUTE EOSINOPHILS # (AUTO) 0.1 10^3/uL (0.0-0.6); ABSOLUTE LYMPHOCYTES (AUTO) 1.7 10^3/uL (0.5-4.7); ABSOLUTE NEUT (AUTO) 6.1 10^3/uL (1.7-8.2); BASOPHILS % (AUTO) 0.6 % (0-2); EOSINOPHILS % (AUTO) 0.9 % (0-6); HEMATOCRIT 45.2 % (37.9-51.0); HEMOGLOBIN 15.7 g/dL (13.5-17.0); LYMPHOCYTES % (AUTO) 18.9 % (13-45); MEAN CORPUSCULAR HGB CONC 34.7 g/dL (32.0-36.0); MEAN CORPUSCULAR VOLUME 89 fl (80-97); MONOCYTES % (AUTO) 11.2 % (3-13); PLATELET COUNT 256 10^3/uL (150-450); RED BLOOD COUNT 5.08 10^6/uL (4.35-5.55); RED CELL DISTRIBUTION WIDTH 12.6 % (11.5-14.0); SEGMENTED NEUTROPHILS % (AUTO) 68.4 % (42-78); TOTAL CELLS COUNTED % (AUTO) 100 %; WHITE BLOOD COUNT 8.9 10^3/uL (4.0-10.5)
[2018-03-21 10:22] LABS: BLOOD UREA NITROGEN 13 mg/dL (7-20); CALCIUM 9.4 mg/dL (8.4-10.2); CARBON DIOXIDE 26 mmol/L (22-30); CHLORIDE 101 mmol/L (98-107); GLUCOSE 116 mg/dL (75-110); POTASSIUM 4.4 mmol/L (3.6-5.0); SODIUM 139.9 mmol/L (137-145)
--- NOTE | 2018-03-21 10:22 | RADIOLOGY REPORT (SQ) ---
EXAM DESCRIPTION: CHEST 2 VIEWS COMPLETED DATE/TIME: 03/21/2018 10:00 am REASON FOR STUDY: Cough, congestion, COPD, smoker, wheezing COMPARISON: 02/03/2017. NUMBER OF VIEWS: Two view. TECHNIQUE: Frontal and lateral radiographic views of the chest acquired. LIMITATIONS: None. FINDINGS: LUNGS AND PLEURA: No opacities, masses or pneumothorax. No pleural effusion. Attenuated bl ood vessels and flattened yong-diaphragms. MEDIASTINUM AND HILAR STRUCTURES: No masses. No contour abnormalities. HEART AND VASCULAR STRUCTURES: Heart normal in size and contour. No evidence for failure. BONES: No acute findings. HARDWARE: None in the chest. OTHER: No other significant finding. IMPRESSION: COPD. NO ACUTE RADIOGRAPHIC FINDING IN THE CHEST. TECHNICAL DOCUMENTATION: JOB ID: [id number] [email or web address]- All Rights Reserved Reading location - IP/workstation name: [email or web address]
[2018-03-21 10:23] LABS: ALANINE AMINOTRANSFERASE 126 U/L (21-72); ALBUMIN 4.6 g/dL (3.5-5.0); ALKALINE PHOSPHATASE 83 U/L (38-126); ANION GAP 13 (5-19); ASPARTATE AMINO TRANSFERASE 99 U/L (17-59); BILIRUBIN,DIRECT 0.6 mg/dL (0.0-0.4); BILIRUBIN,TOTAL 0.9 mg/dL (0.2-1.3); TOTAL PROTEIN 8.8 g/dL (6.3-8.2)
[2018-03-21] MEDS ORDERED: ALBUTEROL SULFATE 0.083% NEB 2.5 MG/3 ML AMPUL NEB ONE (11:10)
--- NOTE | 2018-03-21 12:06 | ER Document Report ---
ED Respiratory Problem - General Chief Complaint: Shortness Of Breath Stated Complaint: SHORTNESS OF BREATH Time Seen by Provider: 03/21/18 09:27 Notes: Patient says he is having pain in his lungs side for the past week. 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 He says he is having her breathing and shortness of breath and a cough. Not productive of a lot of phlegm, however. He has a history of asthma and COPD for which she has, in the past, had bronchodilators and nebulizers and been given prednisone. He no longer has the nebulizer and is out of all of his medications that he is used in the past. However, he has been able to afford to continue smoking cigarettes. He does not recall running any fever. Denies any history of heart disease. Patient frequently requesting pain medications. Only gave him some Ultram. TRAVEL OUTSIDE OF THE [place] IN LAST 30 DAYS: No - Related Data Allergies/Adverse Reactions: Penicillins Allergy (Intermediate, Verified 03/21/18 08:43) Hives ketorolac tromethamine [From Toradol] Adverse Reaction (Intermediate, Verified 03/21/18 08:43) headache Past Medical History - Social History Smoking Status: Current Every Day Smoker Family History: Arthritis, CAD, CVA, DM, Hyperlipidemia, Hypertension, Malignancy Patient has suicidal ideation: No Patient has homicidal ideation: No - Past Medical History Cardiac Medical History: Reports: Hx Hypertension - Non-compliant with meds Pulmonary Medical History: Reports: Hx Bronchitis, Hx COPD, Hx Pneumonia Neurological Medical History: Reports: Hx Cerebrovascular Accident. Denies: Hx Seizures Renal/ Medical History: Denies: Hx Benign Prostatic Hyperplasia, Hx End Stage Renal Disease, Hx Peritoneal Dialysis GI Medical History: Denies: Hx Cirrhosis, Hx Gastroesophageal Reflux Disease, Hx Ulcer Musculoskeletal Medical History: Reports Hx Arthritis, Denies Hx Multiple Sclerosis, Reports Hx Musculoskeletal Deformity, Reports Hx Musculoskeletal Trauma Psychiatric Medical History: Denies: Hx Bipolar Disorder, Hx Depression, Hx Schizophrenia Traumatic Medical History: Reports: Hx Fractures - Wrist femur ribs, Hx Pneumothorax, Hx Traumatic Brain Injury Past Surgical History: Reports: Hx Abdominal Surgery - pyloric stenosis, rt. ing. jasmeet., Hx Neurologic Surgery - brain injury surgery, Hx Orthopedic Surgery - rt wrist tendon repair, Other - Chest tube - Immunizations Immunizations up to date: Yes Hx Diphtheria, Pertussis, Tetanus Vaccination: Yes Review of Systems - Review of Systems Notes: REVIEW OF SYSTEMS: CONSTITUTIONAL : Denies fever. EENT: Denies eye, ear, nose or mouth or throat pain or other symptoms. CARDIOVASCULAR: Complains of sharp chest pains, mostly to the right side of the sternum. RESPIRATORY: Some cough but very little congestion. GASTROINTESTINAL: Denies abdominal pain or nausea, vomiting, or diarrhea. GENITOURINARY: Denies difficulty or painful urinating, urinary frequency, blood in urine. MUSCULOSKELETAL: Denies back or neck pain. Denies joint pain or swelling. SKIN: Denies rash or skin lesions. NEUROLOGICAL: Denies LOC or altered mental status. Denies headache. Denies sensory loss or motor deficits. ALL OTHER SYSTEMS REVIEWED AND NEGATIVE. Physical Exam - Vital signs Vitals: Temp Pulse Resp BP Pulse Ox 97.2 F 102 H 16 195/79 H 97 03/21/18 08:48 03/21/18 08:48 03/21/18 08:48 03/21/18 08:48 03/21/18 08:48 Interpretation: Hypertensive - Mild. No: Hypoxic, Febrile Notes: PHYSICAL EXAMINATION: GENERAL: Well-appearing, in no acute distress. Slightly hypertensive. HEAD: Atraumatic, normocephalic. EYES: Pupils equal round and reactive to light, extraocular movements intact. ENT: oropharynx clear without exudates. Moist mucous membranes. NECK: Normal range of motion, supple. LUNGS: Scattered wheezes throughout both lung grimaldo. Not tight. Moving air well. HEART: Regular rate and rhythm without murmurs. ABDOMEN: Soft, nontender. No guarding or rebound. No masses. BACK: No tenderness throughout entire back. EXTREMITIES: Normal range of motion without pain. Negative Homans bilaterally. NEUROLOGICAL: Normal speech, normal gait. Normal sensory, motor, and reflex exams. Awake, alert, and oriented x3. Cranial nerves normal. PSYCH: Normal mood, normal affect. SKIN: Warm, dry, no rashes. Course - Re-evaluation Re-evalutation: 03/21/18 12:06 Better, although he is still complaining of some chest pains on the right side of his chest. His chest x-ray and EKG were normal. This does not in any way sound like it is cardiac pain. In fact, may be that the patient is seeking pain medications. Have declined to give him any opioids. We will give him a prescription for some Ultram. He is being given steroids, as well. - Vital Signs Vital signs: Temp Pulse Resp BP Pulse Ox 97.2 F 102 H 22 H 173/103 H 94 03/21/18 08:48 03/21/18 08:48 03/21/18 12:00 03/21/18 12:01 03/21/18 12:01 - Laboratory Result Diagrams: 03/21/18 09:26 03/21/18 09:26 Laboratory results interpreted by me: 03/21/18 09:26 Glucose 116 H Direct Bilirubin 0.6 H AST 99 H ALT 126 H Total Protein 8.8 H - Diagnostic Test Radiology results interpreted by me: 03/21/18 20:04 Chest x-ray is normal. - EKG Interpretation by Sc EKG shows normal: Sinus rhythm Rate: Normal Rhythm: NSR Discharge - Discharge Clinical Impression: COPD (chronic obstructive pulmonary disease), Asthma, Chest wall pain Condition: Stable Disposition: HOME, SELF-CARE Additional Instructions: ASTHMA: You have been diagnosed as having asthma. This is a condition where there is episodic tightness in the bronchial tubes. Allergies, infections, and polluted or cold air may be contributing factors. Emergency treatment of a severe asthma attack may include adrenaline shots , or bronchodilator aerosol. You may feel lightheaded, have a decreased exercise tolerance and a rapid pulse for an hour or two. Rest and get plenty of fluids. Home treatment of asthma requires bronchodilator drugs. These can be administered by injection, inhalation, or by mouth. Antibiotics and corticosteroids may be required for some patients. You should avoid chemical fumes, dusts, pollens, and exercising in very cold or dry air. If you smoke, stop!! If you develop a fever, increased wheezing, chest pain, or severe shortness of breath, you should contact the doctor immediately. Chronic Obstructive Lung Disease You have chronic obstructive lung disease (COPD). The symptoms come from emphysema (damage to small airways, with trapping of air in large sacks in the lung) and chronic bronchitis (repeated infection and damage to larger airways). The cause is almost always cigarette smoking, although dust exposure, asthma, and infections contribute. You should avoid fumes, dust, and smoke (especially tobacco smoke). Your condition will flare from time to time. There is no cure, but the symptoms can be treated. Bronchodilators (asthma medicine) are often helpful. Antibiotics help when infection is present. When shortness of breath is severe, we may prescribe cortisone medication. If medicine doesn't help enough, we can arrange for you to have an oxygen tank at home. Notify your doctor at once if sputum becomes thick, foul, or bloody, if you develop a fever or chest pain, or if your shortness of breath worsens. Chest Wall Pain Your chest pain has been diagnosed as coming from the chest wall. This is often caused by straining the muscles or joints in the chest during physical activity, direct trauma, coughing, or vigorous vomiting. Persons with arthritis are especially prone to this type of pain, due to inflammation of the cartilage joints near the breast bone. Occasionally, no cause can be found. Rest from strenuous physical activity. This kind of chest pain is usually made worse by movement of the chest. Depending on the symptoms, we may prescribe medicine for pain, muscle relaxation, and antiinflammatory effects. If the pain is new, and seems to be due to muscle strain, cold packs can help. Otherwise, apply gentle warmth to the painful area for 15 minutes every hour or two. You should contact the doctor immediately if things change. Further evaluation is needed if you develop a fever or cough, if the nature of the pain changes, or if you become short of breath. STEROID MEDICATION: You have been given an injection of or oral medicine of the cortisone/ steroid class. This medication is used to control inflammation or allergy. Bret t is usually only given for a short period of time, until the acute process subsides. There are usually no side effects from short-term use of cortisone-like medications. Some persons feel an increased sense of well-being and are not sleepy at bedtime. Long-term use of cortisone medications is best avoided, unless required for a severe condition. If your condition does not remit, or relapses after the course of corticosteroid medication, you should consult your physician. INHALED BRONCHODILATORS: You have received treatment(s) of and/or prescription for an inhaled bronchodilator -- a medication which stimulates the airways in the lung to dilate. This improves the flow of air in asthma, bronchitis, and emphysema. These medicines have some similarity to adrenaline, and can cause similar side effects: shakiness, racing heart, and a sense of nervousness. These side effects decrease with time. Contact your doctor if these side effects are severe. Do not over-use the medicine. Too-frequent use of the inhaler may make it ineffective. Call your doctor if the inhaler is not controlling your symptoms at the prescribed doses. SMOKING: If you smoke, you should stop smoking. The tar and chemicals in cigarette smoke are harmful. Smoking has been shown to cause: emphysema chronic bronchitis lung cancer mouth and throat cancer stomach and pancreas cancer premature aging defects In addition, smoking increases ear and lung infections in children of smokers. USE OF ACETAMINOPHEN: Acetaminophen may be taken for pain relief or fever control. It's much safer than aspirin, offering a wider range of "safe" dosages. It is safe during . Some brand names are Tylenol, Panadol, Datril, Anacin 3, Tempra, and Liquiprin. Acetaminophen can be repeated every four hours. The following are maximum recommended dosages: USE OF ACETAMINOPHEN (Tylenol): Acetaminophen may be taken for pain relief or fever control. It's much safer than aspirin, offering a wider range of "safe" dosages. It is safe during . Some brand names are Tylenol, Panadol, Datril, Anacin 3, Tempra, and Liquiprin. Acetaminophen can be repeated every four hours. The following are maximum recommended dosages: WEIGHT Dose Drops Elixir Chewable( 80mg) (LBS.) drprs=droppers tsp=teaspoon Acetaminophen can be repeated every four hours. Maximum dose not to exceed 4000 mg a day. These maximum recommended dosages are slightly higher than the dosages written on the product container, but these dosages are very safe and below the toxic dosage for acetaminophen. Ultram Ultram is an excellent drug for pain relief. It is not a narcotic, but it works in a similar way. Ultram can take up to two hours for full effect. Although not addicting, Ultram is best avoided in patients with a history of drug abuse. Ultram should not be used with alcohol, sleeping pills, or narcotics. If you're prone to seizures, Ultram can make you more likely to have a seizure. Ultram can be hazardous when combined with MAO-inhibitor antidepressants (such as Nardil or Parnate). Be sure your doctor is aware of all medicines you are taking. Persons with severe liver or kidney disease should increase the time between doses of Ultram. Discuss this with your doctor if you're uncertain. Side effects of Ultram can include dizziness, nausea, constipation, sleepiness, and itching. (These side effects are also seen with narcotic pain medicines.) Please call your doctor if you have other disturbing effects. FOLLOW-UP CARE: If you have been referred to a physician for follow-up care, call the physician s office for an appointment as you were instructed or within the next two days. If you experience worsening or a significant change in your symptoms, notify the physician immediately or return to the Emergency Department at any time for re-evaluation. Prescriptions: Tramadol HCl [Ultram 50 mg Tablet] 50 mg PO Q4HP PRN #12 tab PRN Reason: Albuterol Sulfate [Proair HFA Inhalation Aerosol 8.5 gm MDI] 2 puff IH Q4 PRN # 1 mdi PRN Reason: Prednisone [Deltasone 10 mg Tablet] 10 mg PO ASDIR PRN #21 tablet PRN Reason:
[2018-03-21 12:24] VITALS: BP 173/103
--- NOTE | 2018-03-21 21:54 | EKG REPORT ---
SEVERITY:- NORMAL ECG - SINUS RHYTHM : Confirmed by: Pily Diaz MD 21-Mar-2018 21:54:29
== END 2018-03-21 12:28 | disposition home or self-care (01) ==
LOC: ER 08:38
DX: J44.9 Chronic obstructive pulmonary disease, unspecified (principal); R07.89 Other chest pain; R06.02 Shortness of breath; R05 Cough; F17.210 Nicotine dependence, cigarettes, uncomplicated; I10 Essential (primary) hypertension
CPT/HCPCS: 93005; 94640 ×2; 99285; 96374; 36415; 85025; 80053; 71046; 93010; J2930; J7620

== ENCOUNTER 2018-08-22 19:14 | Emergency (ER) | payer SELFPAY ==
[2018-08-22 19:38] VITALS: BP 156/104
[2018-08-22] MEDS ORDERED: HYDROCODONE/ACETAMINOPHEN 5-325 MG (6 TAB/ER DISP) PO PRN (21:34)
[2018-08-22] MEDS ORDERED: LIDOCAINE 2% VISCOUS SOLN 20 ML UDCUP PO ONE (21:34)
[2018-08-22] MEDS ORDERED: CLINDAMYCIN HCL 150 MG CAPSULE PO ONE (21:34)
--- NOTE | 2018-08-22 21:38 | ER Document Report ---
ED Oral Problem - General Chief Complaint: Toothache Stated Complaint: TOOTH PAIN Time Seen by Provider: 08/22/18 21:34 Primary Care Provider: [facility] [Provider Group] - Follow up as needed Mode of Arrival: Ambulatory Information source: Patient Notes: 53-year-old male presented to ED for dental pain to the upper right jaw. He has one tooth that this area it is broken off with redness but no abscess at the area. He states that his feet hurt for a while and he needs antibiotics. He states he took a family members Ultram and Aleve with no relief. Patient is alert oriented respirations regular and unlabored speaking in full sentences. There are no signs or symptoms of Augusto's angina. TRAVEL OUTSIDE OF THE [place] IN LAST 30 DAYS: No - HPI Patient complains to provider of: Toothache Onset: Yesterday Onset: Gradual Quality of pain: Throbbing Severity: Severe Pain Level: 5 Associated symptoms: Toothache Worsened by: Cold Relieved by: Nothing Similar symptoms previously: Yes Recently seen / treated by doctor/dentist: No - Related Data Allergies/Adverse Reactions: Penicillins Allergy (Intermediate, Verified 03/21/18 08:43) Hives ketorolac tromethamine [From Toradol] Adverse Reaction (Intermediate, Verified 03/21/18 08:43) headache Past Medical History - General Information source: Patient - Social History Smoking Status: Current Every Day Smoker Cigarette use (# per day): Yes - Pack per day Smoking Education Provided: Yes - Minutes Frequency of alcohol use: Social Drug Abuse: None Occupation: Works with trees Lives with: Family Family History: Arthritis, CAD, CVA, DM, Hyperlipidemia, Hypertension, Malignancy Patient has suicidal ideation: No Patient has homicidal ideation: No - Past Medical History Cardiac Medical History: Reports: Hx Hypertension - Non-compliant with meds Pulmonary Medical History: Reports: Hx Bronchitis, Hx COPD, Hx Pneumonia EENT Medical History: Reports: None Neurological Medical History: Reports: Hx Cerebrovascular Accident Endocrine Medical History: Reports: None Renal/ Medical History: Reports: None Malignancy Medical History: Reports None GI Medical History: Reports: None Musculoskeletal Medical History: Reports Hx Arthritis, Reports Hx Musculoskeletal Deformity, Reports Hx Musculoskeletal Trauma Skin Medical History: Reports None Psychiatric Medical History: Reports: None Traumatic Medical History: Reports: Hx Fractures - Wrist femur ribs, Hx Pneumothorax, Hx Traumatic Brain Injury Infectious Medical History: Reports: None Past Surgical History: Reports: Hx Abdominal Surgery - pyloric stenosis, rt. ing. jasmeet., Hx Neurologic Surgery - brain injury surgery, Hx Orthopedic Surgery - rt wrist tendon repair, Other - Chest tube - Immunizations Immunizations up to date: Yes Hx Diphtheria, Pertussis, Tetanus Vaccination: Yes Review of Systems - Review of Systems Constitutional: No symptoms reported EENT: Mouth swelling, Dental problem Cardiovascular: No symptoms reported Respiratory: No symptoms reported Gastrointestinal: No symptoms reported Genitourinary: No symptoms reported Male Genitourinary: No symptoms reported Musculoskeletal: No symptoms reported Skin: No symptoms reported Hematologic/Lymphatic: No symptoms reported Neurological/Psychological: No symptoms reported -: Yes All other systems reviewed and negative Physical Exam - Vital signs Vitals: Temp Pulse Resp BP Pulse Ox 98.7 F 91 12 156/104 H 98 08/22/18 19:37 08/22/18 19:37 08/22/18 19:37 08/22/18 19:37 08/22/18 19:37 Interpretation: Normal - General General appearance: Appears well, Alert - HEENT Head: Normocephalic, Atraumatic Eyes: Normal Pupils: PERRL Ears: Normal External canal: Normal Tympanic membrane: Normal Sinus: Normal Nasal: Normal Mouth/Lips: Caries Mucous membranes: Normal Teeth diagram: 1 - Part of the tooth is missing part of it is very decayed redness and swelling around the tooth no signs or symptoms of Augusto's angina Pharynx: Normal Neck: Normal - Respiratory Respiratory status: No respiratory distress Chest status: Nontender Breath sounds: Normal Chest palpation: Normal - Cardiovascular Rhythm: Regular Heart sounds: Normal auscultation Murmur: No - Abdominal Inspection: Normal Distension: No distension Bowel sounds: Normal Tenderness: Nontender Organomegaly: No organomegaly - Back Back: Normal, Nontender - Extremities General upper extremity: Normal inspection, Nontender, Normal color, Normal ROM, Normal temperature General lower extremity: Normal inspection, Nontender, Normal color, Normal ROM, Normal temperature, Normal weight bearing. No: Jeff's sign - Neurological Neuro grossly intact: Yes Cognition: Normal Orientation: AAOx4 Bruno Coma Scale Eye Opening: Spontaneous Bekah Coma Scale Verbal: Oriented Bruno Coma Scale Motor: Obeys Commands Bekah Coma Scale Total: 15 Speech: Normal Motor strength normal: LUE, RUE, LLE, RLE Sensory: Normal - Psychological Associated symptoms: Normal affect, Normal mood - Skin Skin Temperature: Warm Skin Moisture: Dry Skin Color: Normal Course - Re-evaluation Re-evalutation: 08/22/18 21:50 Presentation is most consistent with likely an infected tooth. Airway is patent. Vitals within normal limits. Patient is able swallow without any difficulty. There is no significant facial swelling. No evidence of Augusto angina, apical abscess, or airway obstruction. Patient will be started on antibiotics. I've instructed to follow-up with dentistry as earliest ability for definitive management. At this time will discharge with return precautions and follow-up recommendations. Verbal discharge instructions given a the bedside and opportunity for questions given. Medication warnings reviewed. Patient is in agreement with this plan and has verbalized understanding of return precautions and the need for primary care follow-up in the next 24-72 hours. - Vital Signs Vital signs: Temp Pulse Resp BP Pulse Ox 98.7 F 91 12 156/104 H 98 08/22/18 19:37 08/22/18 19:37 08/22/18 19:37 08/22/18 19:37 08/22/18 19:37 Discharge - Discharge Clinical Impression: Pain due to dental caries Condition: Stable Disposition: HOME, SELF-CARE Additional Instructions: TOOTHACHE: Your pain is due to dental decay. The tooth must be repaired in order for you to feel better. You will, therefore, be referred to a dentist. We do not have dentists on the staff at [facility]. Severe swelling or drainage around a tooth usually means a dental abscess. This also requires evaluation and treatment by the dentist, but antibiotics may be prescribed while awaiting dental treatment. You should be rechecked immediately if you develop major swelling of the face, increasing pain, a lump in the jaw or gums, headache, difficulty swallowing, or fever. ORAL NARCOTIC MEDICATION: You have been given a Muddy dispense back for pain control. This medication is a narcotic. It's best taken with food, as nausea can result if taken on an empty stomach. Don't operate machinery or drive within six hours of taking this medication. Do not combine this medicine with alcohol, or with any medication which can cause sedation (such as cold tablets or sleeping pills) unless you get permission from the physician. Narcotics tend to cause constipation. If possible, drink plenty of fluids and eat a diet high in fiber and fruits. Please be aware that prescription narcotics also have the potential for abuse. People become addicted to these medications because of the general sense of wellbeing that they induce. This feeling along with a significant reduction in tension, anxiety, and aggression provides a stimulating seductive quality to these drugs. Once your pain is under control, we encourage you to discard your unused narcotics. CLINDAMYCIN: You have been given a prescription for the antibiotic clindamycin. It is often prescribed for infections in the mouth, such as dental infections or abscesses, and for skin infections due to MRSA. It's important that you take all the medication, unless instructed otherwise by your physician. Failure to complete the entire course can result in relapse of your condition. Common side effects of antibiotics include nausea, intestinal cramping, or diarrhea. Women may develop vaginal yeast infections, and babies can get yeast (thrush) in the mouth following the use of antibiotics. Contact your physician if you develop significant side effects from this medication. Allergy to this antibiotic can result in hives, wheezing, faintness, or itching. If symptoms of allergy occur, stop the medication and call the doctor. He was given a syringe of viscous lidocaine. Please place a small amount on your finger apply it to the gums every 4 hours as needed for pain. Do not use more often than every 4 hours. FOLLOW-UP CARE: You have been referred for follow-up care to the dentists listed below. Call the dentists office for an appointment as you were instructed or within the next two days. If you experience worsening or a significant change in your symptoms, notify the physician immediately or return to the Emergency Department at any time for re-evaluation. [facility] [address] [place] [address] [facility] [address] [facility] [place] [facility] [address] [facility].C. [address] [facility].C. [email or web address] [address] [place] [address] Wednesday- 8:00am to 5:00 pm Will see patients from other [facility] for [facility]. Charges based on income and family size and accepts Medicare, Medicaid, and Insurances Will pull molars [facility] [address] Hours of Operation 8:00 am - 4:30 pm weekdays The following dental offices accept Medicaid: [facility] Dr. Rodriguez Dr. Prieto Dr. Sahni Dr. Plascencia Demond Barros, Yogesh, and [facility] oral surgery Dr. Coker ([place]) Dr. Nickerson ([place]) [facility] Drs. Jean ([place]) Dr. Toney ([place]) [facility] Dr. Villalobos ([place]) Drs. Rodríguez and ([place]) Medicaid Care Line Prescriptions: Clindamycin HCl 300 mg PO Q6 #28 capsule Forms: Elevated Blood Pressure, Smoking Cessation Education, Return to Work Referrals: [facility] [Provider Group] - Follow up as needed
== END 2018-08-22 21:51 | disposition home or self-care (01) ==
LOC: ER 19:14
DX: K02.9 Dental caries, unspecified (principal); K08.89 Other specified disorders of teeth and supporting structures; I10 Essential (primary) hypertension; J44.9 Chronic obstructive pulmonary disease, unspecified; F17.210 Nicotine dependence, cigarettes, uncomplicated; Z71.6 Tobacco abuse counseling; Z88.0 Allergy status to penicillin
CPT/HCPCS: 99282; J3490